=== PATIENT | male | born 1930 | race Caucasian/White ===

== ENCOUNTER 2016-08-17 21:19 | Inpatient (IN) | payer MEDICARE ==
[2016-08-17] MEDS ORDERED: Sodium Chloride 0.9% 1,000 ML IV SCH (22:15)
[2016-08-17] MEDS ORDERED: Insulin Aspart 100 Units/ML 3 ML Pen SUBCUT ONE (23:17)
--- NOTE | 2016-08-17 23:26 | EDM.PDOC ---
ED HPI GENERAL MEDICAL PROBLEM - General Chief Complaint: General Stated Complaint: FELL Time Seen by Provider: 08/17/16 21:50 Source of Information: Reports: Patient, Family History Limitations: Reports: No Limitations - History of Present Illness INITIAL COMMENTS - FREE TEXT/NARRATIVE: History of present illness: [This 86-year-old male presented to the emergency room by ambulance after the implant had been called because he had sat down on a step to tie shoe and then couldn't get up because he was too weak. His states that he has been getting weaker over the last 2-3 days and more winded and has developed a hacking cough. He does have a history of coronary disease and had triple vessel bypass but has not been having any chest pain with this just shortness of breath especially with activity. He developed a low-grade fever. It sounds like dilated his day is to drink one beer per day.] Review of systems: As per history of present illness and below otherwise all systems reviewed and negative. Past medical history: As per history of present illness and as reviewed below otherwise noncontributory. Surgical history: As per history of present illness and as reviewed below otherwise noncontributory. Social history: No reported history of drug or alcohol abuse. Family history: As per history of present illness and as reviewed below otherwise noncontributory. Physical exam: HEENT: Atraumatic, normocephalic, pupils reactive, negative for conjunctival pallor or scleral icterus, mucous membranes moist, throat clear, neck supple, nontender, trachea midline. Lungs: He has diminished breath sounds throughout and a few crackles in left base Heart: S1S2, regular, negative for clicks, rubs, or JVD. Abdomen: Soft, nondistended, nontender. Negative for masses or hepatosplenomegaly. Negative for costovertebral tenderness. Pelvis: Stable nontender. Genitourinary: Deferred. Rectal: Deferred. Extremities: Atraumatic, negative for cords or calf pain. Neurovascular unremarkable. Neuro: Awake, alert, oriented. Cranial nerves II through XII unremarkable. Cerebellum unremarkable. Motor and sensory unremarkable throughout. Exam nonfocal. 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 His states that he takes a nitroglycerin every day when he goes for a walk. He is pain free at this time] Therapeutics: [] Impression: [Pneumonia Coronary artery disease Diabetes mellitus with poor control at this time] Plan: [Patient will be admitted. Fariha will be seeing the patient shortly.] Definitive disposition and diagnosis as appropriate pending reevaluation and review of above. - Related Data Allergies Allergy/AdvReac Type Severity Reaction Status Date / Time No Known Allergies Allergy Verified 08/17/16 21:44 Home Meds: Home Meds Aspirin [Adult Low Dose Aspirin EC] 81 mg PO DAILY 08/29/13 [History] Carvedilol [Coreg] 3.125 mg PO BID 08/29/13 [History] Gluc HCl/Csa/Suly Hy/Hyalur Ac [Glucosamine Chondroitin] 1 each PO DAILY [History] Insulin Aspart [NovoLOG] 0 - 4 unit SQ ASDIRECTED 08/29/13 [History] Insulin Glarg,Human.Rec.Analog [Lantus] 10 unit SQ BEDTIME 08/29/13 [History] Isosorbide Mononitrate [Imdur] 120 mg PO DAILY 08/29/13 [History] Multivitamin [Multivitamins] 1 tab PO DAILY 08/29/13 [History] Tamsulosin [Tamsulosin 24 Hr] 0.4 mg PO DAILY 08/29/13 [History] Tiotropium [Spiriva HandiHaler] 1 cap INH DAILY 08/29/13 [History] cycloSPORINE [Restasis] 1 each OP ASDIRECTED 08/29/13 [History] Nitroglycerin [Nitrostat] 0.4 mg SL ASDIRECTED 08/17/16 [History] Ranolazine [Ranexa] 500 mg PO BID 08/17/16 [History] Rosuvastatin Calcium 5 mg PO DAILY 08/17/16 [History] Ubidecarenone [Co Q10] 100 mg PO BID 08/17/16 [History] Past Medical History HEENT History: Reports: Hard of Hearing, Impaired Vision, Other (See Below) Other HEENT History: Wears hearing aid Cardiovascular History: Reports: Bypass, High Cholesterol, Hypertension Respiratory History: Reports: COPD Genitourinary History: Reports: BPH, Other (See Below) Other Genitourinary History: Taked Flomax Psychiatric History: Reports: Dementia Endocrine/Metabolic History: Reports: Diabetes, Type II - Infectious Disease History Infectious Disease History: Reports: Chicken Pox - Past Surgical History HEENT Surgical History: Reports: Adenoidectomy, Laser Surgery, Tonsillectomy Cardiovascular Surgical History: Reports: Carotid Endarterectomy, Coronary Artery Bypass Respiratory Surgical History: Reports: Thoracotomy Musculoskeletal Surgical History: Reports: Shoulder Surgery Social & Family History - Tobacco Use Smoking Status *Q: Former Smoker Used Tobacco, but Quit: Yes Month Tobacco Last Used: 1951 - Caffeine Use Caffeine Use: Reports: Coffee - Recreational Drug Use Recreational Drug Use: No ED ROS GENERAL - Review of Systems Review Of Systems: ROS reveals no pertinent complaints other than HPI. ED EXAM, GENERAL - Physical Exam Exam: See Below Course - Vital Signs Last Recorded V/S: Last Vital Signs Temp 37.8 C 08/17/16 21:39 Pulse 70 08/17/16 21:39 Resp 18 08/17/16 21:39 BP 149/70 H 08/17/16 21:39 Pulse Ox 91 L 08/17/16 21:39 - Orders/Labs/Meds Orders: Active Orders 24 hr Category Date Time Status EKG Documentation Completion [RC] ASDIRECTED Care 08/17/16 22:00 Active Chest 2V [CR] Stat Exams 08/17/16 21:58 Taken Head wo Cont [CT] Stat Exams 08/17/16 21:58 Taken CULTURE BLOOD [BC] Stat Lab 08/17/16 21:59 Received CULTURE BLOOD [BC] Stat Lab 08/17/16 21:59 Received INFLUENZA A+B AG SCREEN [RM] Stat Lab 08/17/16 21:59 Uncollected UA W/MICROSCOPIC [URIN] Stat Lab 08/17/16 21:58 Uncollected Sodium Chloride 0.9% [Normal Saline] 1,000 ml Med 08/17/16 22:15 Active IV ASDIRECTED EKG 12 Lead [EK] Stat Ther 08/17/16 21:58 Ordered Medication Orders Sodium Chloride (Normal Saline) 1,000 mls @ 300 mls/hr IV ASDIRECTED PAULA Stop: 08/21/16 22:02 Last Admin: 08/17/16 22:38 Dose: 300 mls/hr Labs: Laboratory Tests 08/17/16 08/17/16 08/17/16 Range/Units 21:59 21:59 21:59 WBC 14.3 H (4.5-11.0) K/uL RBC 3.48 L (4.30-5.90) M/uL Hgb 11.3 L (12.0-15.0) g/dL Hct 32.9 L (40.0-54.0) % MCV 95 (80-98) fL MCH 33 H (27-31) pg MCHC 34 (32-36) % Plt Count 240 (150-400) K/uL Neut % (Auto) 86 H (36-66) % Lymph % (Auto) 5 L (24-44) % [place] % (Auto) 8 H (2-6) % Eos % (Auto) 1 L (2-4) % Baso % (Auto) 1 (0-1) % ABG Hemoglobin 11.4 L (13.5-18.0) g/dL ABG Oxyhemoglobin 65.0 % ABG Carboxyhemoglobin 1.7 H (0.0-1.6) % ABG Methemoglobin 0.7 % VBG pH 7.384 (7.350-7.450) VBG pCO2 35.2 mm/Hg VBG pO2 36.8 mm/Hg VBG HCO3 20.6 mmol/L VBG Total CO2 19.0 mmol/L VBG O2 Saturation 66.6 VBG O2 Content 10.4 %vol VBG Base Excess -3.4 mm/L O2 Delivery Device Room air Sodium 131 L (140-148) mmol/L Potassium 4.7 (3.6-5.2) mmol/L Chloride 98 L (100-108) mmol/L Carbon Dioxide 24 (21-32) mmol/L Anion Gap 13.7 (5.0-14.0) mmol/L BUN 35 H (7-18) mg/dL Creatinine 1.5 H (0.8-1.3) mg/dL Est Cr Clr Drug Dosing 38.19 mL/min Estimated GFR (MDRD) 44 L (>60) Glucose 459 H* (74-106) mg/dL Lactic Acid (0.4-2.0) mmol/L Calcium 7.5 L (8.5-10.1) mg/dL Total Bilirubin 0.6 (0.2-1.0) mg/dL AST 22 (15-37) U/L ALT 16 (12-78) U/L Alkaline Phosphatase 109 (46-116) U/L Troponin I 0.624 H* (0.000-0.056) ng/mL [id number] Pept 1094 H (5-450) pg/mL Total Protein 7.0 (6.4-8.2) g/dL Albumin 2.7 L (3.4-5.0) g/dL Globulin 4.3 H (2.3-3.5) g/dL Albumin/Globulin Ratio 0.6 L (1.2-2.2) 08/17/16 Range/Units 21:59 WBC (4.5-11.0) K/uL RBC (4.30-5.90) M/uL Hgb (12.0-15.0) g/dL Hct (40.0-54.0) % MCV (80-98) fL MCH (27-31) pg MCHC (32-36) % Plt Count (150-400) K/uL Neut % (Auto) (36-66) % Lymph % (Auto) (24-44) % [place] % (Auto) (2-6) % Eos % (Auto) (2-4) % Baso % (Auto) (0-1) % ABG Hemoglobin (13.5-18.0) g/dL ABG Oxyhemoglobin % ABG Carboxyhemoglobin (0.0-1.6) % ABG Methemoglobin % VBG pH (7.350-7.450) VBG pCO2 mm/Hg VBG pO2 mm/Hg VBG HCO3 mmol/L VBG Total CO2 mmol/L VBG O2 Saturation VBG O2 Content %vol VBG Base Excess mm/L O2 Delivery Device Sodium (140-148) mmol/L Potassium (3.6-5.2) mmol/L Chloride (100-108) mmol/L Carbon Dioxide (21-32) mmol/L Anion Gap (5.0-14.0) mmol/L BUN (7-18) mg/dL Creatinine (0.8-1.3) mg/dL Est Cr Clr Drug Dosing mL/min Estimated GFR (MDRD) (>60) Glucose (74-106) mg/dL Lactic Acid 1.6 (0.4-2.0) mmol/L Calcium (8.5-10.1) mg/dL Total Bilirubin (0.2-1.0) mg/dL AST (15-37) U/L ALT (12-78) U/L Alkaline Phosphatase (46-116) U/L Troponin I (0.000-0.056) ng/mL [id number] Pept (5-450) pg/mL Total Protein (6.4-8.2) g/dL Albumin (3.4-5.0) g/dL Globulin (2.3-3.5) g/dL Albumin/Globulin Ratio (1.2-2.2) Meds: Medications Generic Name Dose Route Start Last Admin Trade Name Freq PRN Reason Stop Dose Admin Sodium Chloride 1,000 mls @ 300 mls/hr 08/17/16 22:15 08/17/16 22:38 Normal Saline IV 08/21/16 22:02 300 mls/hr ASDIRECTED PAULA Administration Discontinued Medications Generic Name Dose Route Start Last Admin Trade Name Freq PRN Reason Stop Dose Admin Insulin Aspart 10 unit 08/17/16 23:17 Novolog SUBCUT 08/17/16 23:18 ONETIME ONE Departure - Departure Time of Disposition: 23:26 Disposition: Admitted As Inpatient 67 Condition: fair Clinical Impression: Pneumonia Qualifiers: Pneumonia type: due to unspecified organism Laterality: bilateral Lung location : unspecified part of lung Qualified Code(s): J18.9 - Pneumonia, unspecified organism - Discharge Information Forms: ED Department Discharge - My Orders Last 24 Hours: My Active Orders 08/17/16 21:58 Chest 2V [CR] Stat Head wo Cont [CT] Stat UA W/MICROSCOPIC [URIN] Stat EKG 12 Lead [EK] Stat 08/17/16 21:59 CULTURE BLOOD [BC] Stat CULTURE BLOOD [BC] Stat INFLUENZA A+B AG SCREEN [RM] Stat 08/17/16 22:00 EKG Documentation Completion [RC] ASDIRECTED 08/17/16 22:15 Sodium Chloride 0.9% [Normal Saline] 1,000 ml IV ASDIRECTED - Assessment/Plan Last 24 Hours: My Active Orders 08/17/16 21:58 Chest 2V [CR] Stat Head wo Cont [CT] Stat UA W/MICROSCOPIC [URIN] Stat EKG 12 Lead [EK] Stat 08/17/16 21:59 CULTURE BLOOD [BC] Stat CULTURE BLOOD [BC] Stat INFLUENZA A+B AG SCREEN [RM] Stat 08/17/16 22:00 EKG Documentation Completion [RC] ASDIRECTED 08/17/16 22:15 Sodium Chloride 0.9% [Normal Saline] 1,000 ml IV ASDIRECTED
--- NOTE | 2016-08-18 00:42 | PCM.HP ---
H&P History of Present Illness - General Date of Service: 08/17/16 Admit Problem/Dx: Admission Diagnosis/Problem Admission Diagnosis/Problem Pneumonia Source of Information: Patient, Family ( Marilee of 64 years.) History Limitations: Reports: Altered Mental Status (dementia) - History of Present Illness Initial Comments - Free Text/Narative: - History of Present Illness INITIAL COMMENTS - FREE TEXT/NARRATIVE: History of present illness: [This 86-year-old male presented to the emergency room by ambulance after called because he had sat down on a step to tie shoe and then couldn't get up because he was too weak. His states that he has been getting weaker over the last 2-3 days and more winded and has developed a hacking cough. He does have a history of coronary disease and had triple vessel bypass but has not been having any chest pain with this just shortness of breath especially with activity. He developed a low-grade fever. It sounds like decreased his beer intake to drink one beer per day.] Review of systems: As per history of present illness and below otherwise all systems reviewed and negative. Past medical history: As per history of present illness and as reviewed below otherwise noncontributory. Surgical history: As per history of present illness and as reviewed below otherwise noncontributory. Social history: No reported history of drug or alcohol abuse. Family history: As per history of present illness and as reviewed below otherwise noncontributory. 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 His states that he takes a nitroglycerin every day when he goes for a walk. He is pain free at this time] Therapeutics: [] Impression: [Pneumonia Coronary artery disease Diabetes mellitus with poor control at this time Dementia Plan: [Patient will be admitted. Onset of Symptoms: Reports: Gradual Duration of Symptoms: Reports: Day(s):, Getting Worse (shortness of breath, weakness, decreased appetite) Location: Reports: Generalized Severity: Moderate Improves with: Reports: Rest Worsens with: Reports: Movement Associated Symptoms: Reports: Cough, Loss of Appetite, Malaise, Shortness of Breath, Weakness - Related Data Allergies/Adverse Reactions: Allergies Allergy/AdvReac Type Severity Reaction Status Date / Time No Known Allergies Allergy Verified 08/17/16 21:44 Home Medications: Home Meds Aspirin [Adult Low Dose Aspirin EC] 81 mg PO DAILY 08/29/13 [History] Carvedilol [Coreg] 3.125 mg PO BID 08/29/13 [History] Gluc HCl/Csa/Suly Hy/Hyalur Ac [Glucosamine Chondroitin] 1 each PO DAILY [History] Insulin Aspart [NovoLOG] 0 - 4 unit SQ ASDIRECTED 08/29/13 [History] Insulin Glarg,Human.Rec.Analog [Lantus] 10 unit SQ BEDTIME 08/29/13 [History] Isosorbide Mononitrate [Imdur] 120 mg PO DAILY 08/29/13 [History] Multivitamin [Multivitamins] 1 tab PO DAILY 08/29/13 [History] Tamsulosin [Tamsulosin 24 Hr] 0.4 mg PO DAILY 08/29/13 [History] Tiotropium [Spiriva HandiHaler] 1 cap INH DAILY 08/29/13 [History] cycloSPORINE [Restasis] 1 each OP ASDIRECTED 08/29/13 [History] Nitroglycerin [Nitrostat] 0.4 mg SL ASDIRECTED 08/17/16 [History] Ranolazine [Ranexa] 500 mg PO BID 08/17/16 [History] Rosuvastatin Calcium 5 mg PO DAILY 08/17/16 [History] Ubidecarenone [Co Q10] 100 mg PO BID 08/17/16 [History] Past Medical History HEENT History: Reports: Hard of Hearing, Impaired Vision, Other (See Below) Other HEENT History: Wears hearing aid Cardiovascular History: Reports: Bypass, High Cholesterol, Hypertension Respiratory History: Reports: COPD Genitourinary History: Reports: BPH, Other (See Below) Other Genitourinary History: Taked Flomax Psychiatric History: Reports: Dementia Endocrine/Metabolic History: Reports: Diabetes, Type II - Infectious Disease History Infectious Disease History: Reports: Chicken Pox - Past Surgical History HEENT Surgical History: Reports: Adenoidectomy, Laser Surgery, Tonsillectomy Cardiovascular Surgical History: Reports: Carotid Endarterectomy, Coronary Artery Bypass Respiratory Surgical History: Reports: Thoracotomy Musculoskeletal Surgical History: Reports: Shoulder Surgery Social & Family History - Tobacco Use Smoking Status *Q: Former Smoker Used Tobacco, but Quit: Yes Month Tobacco Last Used: 1951 - Caffeine Use Caffeine Use: Reports: Coffee - Recreational Drug Use Recreational Drug Use: No - Living Situation & Occupation Living situation: Reports: , with Family Occupation: Retired (lives with Marilee of 64 years, [place] in [place], Summer at [employer], have 2 adult children one lives in [facility] , one live in [place].) H&P Review of Systems - Review of Systems: Review Of Systems: See Below General: Reports: Malaise, Weakness, Fatigue, Decreased Appetite HEENT: Reports: No Symptoms Pulmonary: Reports: Shortness of Breath, Cough Cardiovascular: Reports: No Symptoms Gastrointestinal: Reports: No Symptoms Genitourinary: Reports: No Symptoms Musculoskeletal: Reports: No Symptoms Skin: Reports: Bruising Psychiatric: Reports: Other (dementia) Neurological: Reports: Pre-Existing Deficit, Weakness Hematologic/Lymphatic: Reports: No Symptoms Immunologic: Reports: No Symptoms Exam - Exam Exam: See Below - Vital Signs Vital Signs: Last Vital Signs Temp 37.8 C 08/17/16 21:39 Pulse 70 08/17/16 21:39 Resp 18 08/17/16 21:39 BP 149/70 H 08/17/16 21:39 Pulse Ox 91 L 08/17/16 21:39 Weight: 77.111 kg - Exam General: Alert, Oriented, Cooperative, Other (pleasant well tanned , talkative) HEENT: PERRLA, Conjunctiva Clear, EACs Clear, EOMI, Hearing Intact, Mucosa Moist & [place], Nares Patent, Normal Nasal Septum, Posterior Pharynx Clear, Pupils Equal, Pupils Reactive, TMs Clear Neck: Supple, Trachea Midline Lungs: Clear to Auscultation, Normal Respiratory Effort, Decreased Breath Sounds Cardiovascular: Regular Rate, Regular Rhythm, Normal S1, Normal S2, Other ( murmur present) Abdomen: Normal Bowel Sounds, Soft, Pelvis Stable, Distention (Male) Exam: Deferred Rectal (Males) Exam: Deferred Back Exam: Normal Inspection, Full Range of Motion Extremities: Normal Inspection, Normal Pulses Peripheral Pulses: 2+: Radial (L), Radial (R), Posterior Tibial (L), Posterior Tibial (R) Skin: Warm, Dry, Intact, Pet[place]ia Neurological: Reflexes Equal Bilateral, Strength Equal Bilateral, Normal Gait, Normal Speech, Normal Tone Neuro Extensive - Mental Status: Alert, Normal Mood/Affect, Memory Intact Neuro Extensive - Motor, Sensory, Reflexes: Normal Gait, Normal Reflexes Psychiatric: Alert, Normal Affect, Normal Mood - Patient Data Lab Results last 24 hrs: Laboratory Results - last 24 hr 08/17/16 08/17/16 08/17/16 Range/Units 21:59 21:59 21:59 WBC 14.3 H (4.5-11.0) K/uL RBC 3.48 L (4.30-5.90) M/uL Hgb 11.3 L (12.0-15.0) g/dL Hct 32.9 L (40.0-54.0) % MCV 95 (80-98) fL MCH 33 H (27-31) pg MCHC 34 (32-36) % Plt Count 240 (150-400) K/uL Neut % (Auto) 86 H (36-66) % Lymph % (Auto) 5 L (24-44) % [place] % (Auto) 8 H (2-6) % Eos % (Auto) 1 L (2-4) % Baso % (Auto) 1 (0-1) % ABG Hemoglobin 11.4 L (13.5-18.0) g/dL ABG Oxyhemoglobin 65.0 % ABG Carboxyhemoglobin 1.7 H (0.0-1.6) % ABG Methemoglobin 0.7 % VBG pH 7.384 (7.350-7.450) VBG pCO2 35.2 mm/Hg VBG pO2 36.8 mm/Hg VBG HCO3 20.6 mmol/L VBG Total CO2 19.0 mmol/L VBG O2 Saturation 66.6 VBG O2 Content 10.4 %vol VBG Base Excess -3.4 mm/L O2 Delivery Device Room air Sodium 131 L (140-148) mmol/L Potassium 4.7 (3.6-5.2) mmol/L Chloride 98 L (100-108) mmol/L Carbon Dioxide 24 (21-32) mmol/L Anion Gap 13.7 (5.0-14.0) mmol/L BUN 35 H (7-18) mg/dL Creatinine 1.5 H (0.8-1.3) mg/dL Est Cr Clr Drug Dosing 38.19 mL/min Estimated GFR (MDRD) 44 L (>60) Glucose 459 H* (74-106) mg/dL Lactic Acid (0.4-2.0) mmol/L Calcium 7.5 L (8.5-10.1) mg/dL Total Bilirubin 0.6 (0.2-1.0) mg/dL AST 22 (15-37) U/L ALT 16 (12-78) U/L Alkaline Phosphatase 109 (46-116) U/L Troponin I 0.624 H* (0.000-0.056) ng/mL Igj-U-Ezicgojizwd Pept 1094 H (5-450) pg/mL Total Protein 7.0 (6.4-8.2) g/dL Albumin 2.7 L (3.4-5.0) g/dL Globulin 4.3 H (2.3-3.5) g/dL Albumin/Globulin Ratio 0.6 L (1.2-2.2) / Range/Units 21:59 WBC (4.5-11.0) K/uL RBC (4.30-5.90) M/uL Hgb (12.0-15.0) g/dL Hct (40.0-54.0) % MCV (80-98) fL MCH (27-31) pg MCHC (32-36) % Plt Count (150-400) K/uL Neut % (Auto) (36-66) % Lymph % (Auto) (24-44) % [place] % (Auto) (2-6) % Eos % (Auto) (2-4) % Baso % (Auto) (0-1) % ABG Hemoglobin (13.5-18.0) g/dL ABG Oxyhemoglobin % ABG Carboxyhemoglobin (0.0-1.6) % ABG Methemoglobin % VBG pH (7.350-7.450) VBG pCO2 mm/Hg VBG pO2 mm/Hg VBG HCO3 mmol/L VBG Total CO2 mmol/L VBG O2 Saturation VBG O2 Content %vol VBG Base Excess mm/L O2 Delivery Device Sodium (140-148) mmol/L Potassium (3.6-5.2) mmol/L Chloride (100-108) mmol/L Carbon Dioxide (21-32) mmol/L Anion Gap (5.0-14.0) mmol/L BUN (7-18) mg/dL Creatinine (0.8-1.3) mg/dL Est Cr Clr Drug Dosing mL/min Estimated GFR (MDRD) (>60) Glucose (74-106) mg/dL Lactic Acid 1.6 (0.4-2.0) mmol/L Calcium (8.5-10.1) mg/dL Total Bilirubin (0.2-1.0) mg/dL AST (15-37) U/L ALT (12-78) U/L Alkaline Phosphatase (46-116) U/L Troponin I (0.000-0.056) ng/mL Lhf-R-Dlveeuwhkbd Pept (5-450) pg/mL Total Protein (6.4-8.2) g/dL Albumin (3.4-5.0) g/dL Globulin (2.3-3.5) g/dL Albumin/Globulin Ratio (1.2-2.2) Result Diagrams: 08/17/16 21:59 08/17/16 21:59 *Q Meaningful Use (ADM) - VTE *Q VTE Criteria *Q: - Stroke *Q Stroke Criteria *Q: - AMI *Q AMI Criteria *Q: - Problem List (1) Pneumonia SNOMED Code(s): 441459074 ICD Code: J18.9 - PNEUMONIA, UNSPECIFIED ORGANISM Status: Acute Priority : High Current Visit: Yes Qualifiers: Pneumonia type: due to unspecified organism Laterality: bilateral Lung location: unspecified part of lung Qualified Code(s): J18.9 - Pneumonia, unspecified organism (2) Diabetes type 2, uncontrolled SNOMED Code(s): 04731363, 874879917 ICD Code: E11.65 - TYPE 2 DIABETES MELLITUS WITH HYPERGLYCEMIA Status: Acute Priority: High Current Visit: Yes Qualifiers: Diabetes mellitus complication status: without complication Diabetes mellitus penitentiary insulin use: with penitentiary use Qualified Code(s): E11.65 - Type 2 diabetes mellitus with hyperglycemia; Z79.4 - USP (current) use of insulin (3) Dementia SNOMED Code(s): 68196013 ICD Code: F03.90 - UNSPECIFIED DEMENTIA WITHOUT BEHAVIORAL DISTURBANCE Status: Acute Priority: High Current Visit: Yes Qualifiers: Dementia type: Alzheimer's disease Alzheimer's disease onset: unspecified onset Dementia behavioral disturbance: without behavioral disturbance Qualified Code(s): G30.9 - Alzheimer's disease, unspecified; F02.80 - Dementia in other diseases classified elsewhere without behavioral disturbance (4) Congestive heart failure (CHF) SNOMED Code(s): 54169367 ICD Code: I50.9 - HEART FAILURE, UNSPECIFIED Status: Acute Priority: Medium Current Visit: Yes Qualifiers: Congestive heart failure type: unspecified congestive heart failure type Congestive heart failure chronicity: acute Qualified Code(s): I50.9 - Heart failure, unspecified (5) Elevated troponin I level SNOMED Code(s): 770310023 ICD Code: R74.8 - ABNORMAL LEVELS OF OTHER SERUM ENZYMES Status: Acute Priority: Medium Current Visit: Yes Problem List Initiated/Reviewed/Updated: Yes Orders Last 24hrs: Active Orders 24 hr Category Date Time Status Patient Status Manage Transfer [TRANSFER] Routine ADT 08/18/16 00:23 Ordered Cardiac Monitoring [RC] .As Directed Care 08/18/16 00:23 Ordered EKG Documentation Completion [RC] ASDIRECTED Care 08/17/16 22:00 Active Chest 2V [CR] Stat Exams 08/17/16 21:58 Taken Head wo Cont [CT] Stat Exams 08/17/16 21:58 Taken CULTURE BLOOD [BC] Stat Lab 08/17/16 21:59 Received CULTURE BLOOD [BC] Stat Lab 08/17/16 21:59 Received INFLUENZA A+B AG SCREEN [RM] Stat Lab 08/17/16 21:59 Ordered UA W/MICROSCOPIC [URIN] Stat Lab 08/17/16 21:58 Ordered Sodium Chloride 0.9% [Normal Saline] 1,000 ml Med 08/17/16 22:15 Active IV ASDIRECTED Resuscitation Status Routine Resus Stat 08/18/16 00:25 Ordered EKG 12 Lead [EK] Stat Ther 08/17/16 21:58 Ordered Medication Orders Sodium Chloride (Normal Saline) 1,000 mls @ 300 mls/hr IV ASDIRECTED PAULA Stop: 08/21/16 22:02 Last Infusion: 08/18/16 00:05 Dose: 75 mls/hr Admin: 08/17/16 22:38 Dose: 300 mls/hr Assessment/Plan Comment:: ASSESSMENT / PLAN -This is a 86 year old male present to ER via EMS with complaints of shortness of breath and weakness. s INITIAL COMMENTS - FREE TEXT/NARRATIVE: History of present illness: [This 86-year-old male presented to the emergency room by ambulance after called because he had sat down on a step to tie shoe and then couldn't get up because he was too weak. His states that he has been getting weaker over the last 2-3 days and more winded and has developed a hacking cough. He does have a history of coronary disease and had triple vessel bypass but has not been having any chest pain with this just shortness of breath especially with activity. He developed a low-grade fever. It sounds like decreased his beer intake to drink one beer per day.] Review of systems: As per history of present illness and below otherwise all systems reviewed and negative. Past medical history: As per history of present illness and as reviewed below otherwise noncontributory. Surgical history: As per history of present illness and as reviewed below otherwise noncontributory. Social history: No reported history of drug or alcohol abuse. Family history: As per history of present illness and as reviewed below otherwise noncontributory. 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 His states that he takes a nitroglycerin every day when he goes for a walk. He is pain free at this time] [] Impression: [Pneumonia Coronary artery disease Diabetes mellitus with poor control at this time Dementia chf Plan: [Patient will be admitted. Pneumonia -IV Levaquin 500mg every 24 hours -IV Rocephin 1 gram every 24 hours -blood cultures pending -am labs; cbc Coronary artery disease, elevated Troponin -Troponin cardiac enzyme at 4 AM and 10am -orders for nitroglycerin 0.4 sublingual when necessary chest pain -Telemetry -Oxygen per nasal cannula prn -IV fluids for rehydration NS at 75 mL per hour -Advise to notify nurses of any chest pain or other symptoms -And a.m. labs: CBC, BMP, Diabetes type 2 -Lantus -sliding scale low dose insulin coverage Dementia for the past 3 years -monitor for confusion or agitation with admission to hospital CHF -monitor for any signs of crackles Maintenance issues -Orders home meds: -Nutrition: Regular diet -Patel catheter not indicated at this time -DVT: scd -PPI; Protonix 40mg daily -referral to PT and OT for discharge planning -referral to Spiritual care CODE STATUS:DNR/DNI Admission status: Admit to [address] [place] [address] justification. This patient will be admitted for inpatient services and is medically appropriate meeting medical necessity for inpatient admission as outlined in my documentation. I reasonably expect the patient will require inpatient services that span. Time over 2 midnights. I reasonably expect this patient to be discharged or transferred within 96 hours after admission to the critical access hospital Disposition; home with Marilee Primary care provider: Dr. Carrion
[2016-08-18] MEDS ORDERED: LORazepam 2 MG/ML MDV IV PRN (01:02)
[2016-08-18] MEDS ORDERED: Levofloxacin/Dextrose 5%-Water 500 MG in Premix Bag 1 BAG IV SCH (01:02)
[2016-08-18] MEDS ORDERED: Ondansetron 4 MG Tab.DIS PO PRN (01:02)
[2016-08-18] MEDS ORDERED: Acetaminophen 325 MG Tab PO PRN (01:02)
[2016-08-18] MEDS ORDERED: cefTRIAXone 1 GM in Sodium Chloride 0.9% 50 ML IV SCH ×2 (01:02→22:00)
[2016-08-18] MEDS ORDERED: Ondansetron 4 MG/2 ML SDV IV PRN (01:02)
[2016-08-18] MEDS ORDERED: Insulin Aspart 100 Units/ML 3 ML Pen SUBCUT SCH (01:02)
[2016-08-18] MEDS ORDERED: Docusate Sodium 100 MG Cap PO PRN (01:02)
[2016-08-18] MEDS ORDERED: Sodium Chloride 0.9% 1,000 ML IV SCH (01:02)
[2016-08-18] MEDS ORDERED: Nitroglycerin 0.4 MG Tab.SL SL PRN (01:02)
[2016-08-18] MEDS ORDERED: Albuterol 0.083% 2.5 MG/3 ML Neb Soln NEB PRN (01:02)
[2016-08-18] MEDS ORDERED: Bisacodyl 5 MG Tab PO PRN (01:02)
[2016-08-18] MEDS: Carvedilol 3.125 MG Tab PO SCH ×2 (01:26→10:14)
[2016-08-18] MEDS ORDERED: Levofloxacin/Dextrose 5%-Water 500 MG in Premix Bag 1 BAG IV ONE (01:30)
[2016-08-18] MEDS: Codeine/guaiFENesin 100mg-10 MG/5 ML Syrup 10 ML Cup PO PRN ×2 (01:37→11:26)
[2016-08-18] MEDS ORDERED: Insulin Detemir 100 Units/ML 3 ML Pen SUBCUT SCH ×2 (01:45→21:00)
[2016-08-18] MEDS: RANOLAZINE 500 MG PO SCH ×2 (02:43→11:52)
[2016-08-18] MEDS ORDERED: Albuterol/Ipratropium 3.0-0.5 MG/3 ML Neb Soln NEB SCH ×2 (06:00→11:00)
[2016-08-18] MEDS ORDERED: Pantoprazole 40 MG Tab.CR PO SCH (07:30)
[2016-08-18 07:42] VITALS: BP 144/73
--- NOTE | 2016-08-18 08:24 | CR ---
Chest 2V HISTORY: cough, fever COMPARISON: 09/12/2012 FINDINGS: There are patchy infiltrates in the upper lobes bilaterally, greater on the right. Heart s ize is within normal limits. Atherosclerotic calcification is seen in the aortic arch. There is no v ascular redistribution or pleural fluid. Old median sternotomy changes are noted. IMPRESSION: Patchy infiltrates bilaterally, greatest in the right upper lobe. Findings may correlate with the given clinical history of pneumonia. Follow-up chest films are recommended after treatment to document resolution.
[2016-08-18] MEDS ORDERED: Tamsulosin 0.4 MG Cap.ER PO SCH (09:00)
[2016-08-18] MEDS ORDERED: Pantoprazole 40 MG Vial IVPUSH SCH (09:00)
[2016-08-18] MEDS ORDERED: Rosuvastatin 10 MG Tab PO SCH (09:00)
[2016-08-18] MEDS ORDERED: Isosorbide Mononitrate 30 MG Tab.ER PO SCH (09:00)
[2016-08-18] MEDS ORDERED: Aspirin 81 MG Tab.EC PO SCH (09:00)
[2016-08-18] MEDS ORDERED: Multivitamins with Iron/Calcium/Folic Acid/Minerals Tab PO SCH (09:00)
[2016-08-18] MEDS ORDERED: Heparin Sodium/D5W 25,000 UNITS/500 ML BAG IV SCH (11:00)
[2016-08-18] MEDS ORDERED: Heparin Sodium 5,000 Units/ML Vial IVPUSH STA (11:14)
[2016-08-18] MEDS ORDERED: Aspirin 81 MG Tab.Chew PO SCH (11:15)
--- NOTE | 2016-08-18 11:52 | PCM.DCSUM1 ---
Discharge Summary - Hospital Course Brief History: This patient is an 86-year-old gentleman who was admitted through the emergency department with progressive weakness, fever, and leukocytosis thought secondary to pneumonia and urinary tract infection. - Discharge Data Discharge Date: 08/18/16 Discharge Disposition: DC/Tfer to [facility] 02 Condition: Stable - Discharge Diagnosis/Problem(s) (1) Cystitis SNOMED Code(s): 63136418 ICD Code: N30.90 - CYSTITIS, UNSPECIFIED WITHOUT HEMATURIA Status: Acute Current Visit: Yes (2) Non-ST elevated myocardial infarction SNOMED Code(s): 033070418 ICD Code: I21.4 - NON-ST ELEVATION (NSTEMI) MYOCARDIAL INFARCTION Status: Acute Current Visit: Yes (3) Pneumonia SNOMED Code(s): 921331189 ICD Code: J18.9 - PNEUMONIA, UNSPECIFIED ORGANISM Status: Acute Priority : High Current Visit: Yes Qualifiers: Pneumonia type: due to unspecified organism Laterality: bilateral Lung location: unspecified part of lung Qualified Code(s): J18.9 - Pneumonia, unspecified organism (4) Diabetes type 2, uncontrolled SNOMED Code(s): 44697245, 009011145 ICD Code: E11.65 - TYPE 2 DIABETES MELLITUS WITH HYPERGLYCEMIA Status: Acute Priority: High Current Visit: Yes Qualifiers: Diabetes mellitus complication status: without complication Diabetes mellitus senior care insulin use: with termite exterminator helper use Qualified Code(s): E11.65 - Type 2 diabetes mellitus with hyperglycemia; Z79.4 - prison (current) use of insulin (5) Dementia SNOMED Code(s): 38857161 ICD Code: F03.90 - UNSPECIFIED DEMENTIA WITHOUT BEHAVIORAL DISTURBANCE Status: Acute Priority: High Current Visit: Yes Qualifiers: Dementia type: Alzheimer's disease Alzheimer's disease onset: unspecified onset Dementia behavioral disturbance: without behavioral disturbance Qualified Code(s): G30.9 - Alzheimer's disease, unspecified; F02.80 - Dementia in other diseases classified elsewhere without behavioral disturbance - Patient Summary/Data Consults: Consultations 08/18/16 01:02 OT Evaluation and Treatment [CONS] Routine Please Evaluate and Treat. OT Reason for Consult: Discharge Planning This query below is only for informational purposes and is not editable. PT Evaluation and Treatment [CONS] Routine Please Evaluate and Treat. PT Reason for Consult: Ambulation This query below is only for informational purposes and is not editable. 08/18/16 01:59 Spiritual Care Follow Up [CONS] Routine Spiritual Resources: Other (See Spec Instr) Spiritual/Emotional Support: Prayer Request Hospital Course: This patient is an 86-year-old gentleman who developed symptoms of progressive weakness. On the evening of admission he and his are walking into the when he became very fatigued and needed to sit down the steps at rest. He was unable to get up off of the steps because of weakness and struggled for about an hour and half or so. His called the ambulance and he was brought into the emergency department for further evaluation. Chest x-ray showed bilateral patchy infiltrates in his white blood cell count was elevated. He was hemodynamically stable with adequate oxygenation. He was felt to have probable bilateral pneumonia causing current symptoms. Also noted on admission was evidence of urinary tract infection. His troponin was found to be elevated at 0.62, with a GFR of 40 and recent stress of probable infection it was felt to represent demand ischemia. Blood cultures were obtained and he was started on IV antibiotic therapy with levofloxacin. Followup troponin the next morning was elevated at 6.5, repeated a few hours later was up to 8.4. EKG was repeated and showed no acute ST segment changes, he was felt to have experienced a non-ST segment elevation myocardial infarction. He does have a known history of coronary artery disease status post coronary artery bypass surgery approximately 4 years ago. Echocardiogram obtained last fall showed preserved left ventricular function. Because of the non-STEMI he will be referred to tertiary care Center for further subspecialty evaluation and management. He has been started on IV heparin as well as 325 mg of aspirin daily. Transfer will be via [facility] ambulance. - Patient Instructions Diet: Usual Diet as Tolerated Activity: As Tolerated Other/Special Instructions: He will be transferred to [facility] in [facility] via [facility] ambulance. - Discharge Plan Home Medications: Home Meds Aspirin [Adult Low Dose Aspirin EC] 81 mg PO DAILY 08/29/13 [History] Carvedilol [Coreg] 3.125 mg PO BID 08/29/13 [History] Gluc HCl/Csa/Suly Hy/Hyalur Ac [Glucosamine Chondroitin] 1 each PO DAILY [History] Insulin Aspart [NovoLOG] 0 - 4 unit SQ ASDIRECTED 08/29/13 [History] Insulin Glarg,Human.Rec.Analog [Lantus] 10 unit SQ BEDTIME 08/29/13 [History] Isosorbide Mononitrate [Imdur] 120 mg PO DAILY 08/29/13 [History] Multivitamin [Multivitamins] 1 tab PO DAILY 08/29/13 [History] Tamsulosin [Flomax] 0.4 mg PO DAILY 08/29/13 [History] Tiotropium [Spiriva HandiHaler] 1 cap INH DAILY 08/29/13 [History] cycloSPORINE [Restasis] 1 each OP ASDIRECTED 08/29/13 [History] Nitroglycerin [Nitrostat] 0.4 mg SL ASDIRECTED 08/17/16 [History] Ranolazine [Ranexa] 500 mg PO BID 08/17/16 [History] Rosuvastatin Calcium 5 mg PO DAILY 08/17/16 [History] Ubidecarenone [Co Q10] 100 mg PO BID 08/17/16 [History] Aspirin [Ecotrin] 325 mg PO DAILY tab.ec 08/18/16 [Rx] Levofloxacin/Dextrose 5%-Water [Levaquin in D5W 750 MG/150 ML] 750 mg IV Q24H bag 08/18/16 [Rx] Referrals: Jh Carrion MD [Primary Care Provider] - - Patient Data Vitals - Most Recent: Last Vital Signs Temp 97.1 F 08/18/16 07:39 Pulse 61 08/18/16 10:44 Resp 18 08/18/16 07:39 BP 144/73 H 08/18/16 10:15 Pulse Ox 93 L 08/18/16 10:44 Weight - Most Recent: 171 lb 7.997 oz I&O - Last 24 hours: Intake & Output 08/17/16 08/18/16 08/18/16 22:59 06:59 14:59 Intake Total 880 Output Total 500 Balance 880 -500 Lab Results - Last 24 hrs: Laboratory Results - last 24 hr 08/18/16 08/18/16 08/18/16 Range/Units 04:00 04:00 04:10 WBC 15.0 H (4.5-11.0) K/uL RBC 3.37 L (4.30-5.90) M/uL Hgb 10.7 L (12.0-15.0) g/dL Hct 31.9 L (40.0-54.0) % MCV 95 (80-98) fL MCH 32 H (27-31) pg MCHC 34 (32-36) % Plt Count 243 (150-400) K/uL Neut % (Auto) 79 H (36-66) % Lymph % (Auto) 9 L (24-44) % Overton % (Auto) 10 H (2-6) % Eos % (Auto) 2 (2-4) % Baso % (Auto) 0 (0-1) % Sodium 136 L (140-148) mmol/L Potassium 3.8 (3.6-5.2) mmol/L Chloride 102 (100-108) mmol/L Carbon Dioxide 27 (21-32) mmol/L Anion Gap 10.8 (5.0-14.0) mmol/L BUN 29 H (7-18) mg/dL Creatinine 1.3 (0.8-1.3) mg/dL Est Cr Clr Drug Dosing 44.07 mL/min Estimated GFR (MDRD) 52 L (>60) Glucose 159 H (74-106) mg/dL Calcium 7.8 L (8.5-10.1) mg/dL Troponin I 6.458 H* (0.000-0.056) ng/mL 08/18/16 Range/Units 10:00 WBC (4.5-11.0) K/uL RBC (4.30-5.90) M/uL Hgb (12.0-15.0) g/dL Hct (40.0-54.0) % MCV (80-98) fL MCH (27-31) pg MCHC (32-36) % Plt Count (150-400) K/uL Neut % (Auto) (36-66) % Lymph % (Auto) (24-44) % Overton % (Auto) (2-6) % Eos % (Auto) (2-4) % Baso % (Auto) (0-1) % Sodium (140-148) mmol/L Potassium (3.6-5.2) mmol/L Chloride (100-108) mmol/L Carbon Dioxide (21-32) mmol/L Anion Gap (5.0-14.0) mmol/L BUN (7-18) mg/dL Creatinine (0.8-1.3) mg/dL Est Cr Clr Drug Dosing mL/min Estimated GFR (MDRD) (>60) Glucose (74-106) mg/dL Calcium (8.5-10.1) mg/dL Troponin I 8.453 H* (0.000-0.056) ng/mL Med Orders - Current: Current Medications Acetaminophen (Tylenol) 650 mg PO Q4H PRN PRN Reason: Pain (Mild 1-3)/fever Albuterol (Proventil Neb Soln) 2.5 mg NEB Q4H PRN PRN Reason: Shortness Of Breath/wheezing Albuterol/Ipratropium (Duoneb 3.0-0.5 Mg/3 Ml) 3 ml NEB QIDRT [facility] Last Admin: 08/18/16 10:44 Dose: 3 ml Aspirin (Halfprin) 81 mg PO DAILY [facility] Last Admin: 08/18/16 10:15 Dose: 81 mg Aspirin (Aspirin) 324 mg PO DAILY [facility] Last Admin: 08/18/16 11:19 Dose: 324 mg Bisacodyl (Dulcolax) 5 mg PO DAILY PRN PRN Reason: Constipation Carvedilol (Coreg) 3.125 mg PO BID [facility] Last Admin: 08/18/16 10:14 Dose: 3.125 mg Cyclosporine (Restasis) 1 each EYERT BID [facility] Docusate Sodium (Colace) 100 mg PO BID PRN PRN Reason: Constipation Guaifenesin/Codeine Phosphate (Robitussin Ac) 10 ml PO Q4H PRN PRN Reason: Cough Last Admin: 08/18/16 11:26 Dose: 10 ml Sodium Chloride (Normal Saline) 1,000 mls @ 75 mls/hr IV ASDIRECTED [facility] Last Admin: 08/18/16 08:49 Dose: 75 mls/hr Ceftriaxone Sodium 1 gm/ (Sodium Chloride) 50 mls @ 100 mls/hr IV Q24H [facility] Levofloxacin/Dextrose 750 mg/ (Premix) 150 mls @ 100 mls/hr IV Q24H [facility] Heparin Sodium/Dextrose (Heparin 25,000 Units In D5w 500 Ml) 25,000 units in 500 mls @ 0 mls/hr IV TITRATE PAULA; KVO PRN Reason: Protocol Last Admin: 08/18/16 11:24 Dose: 18.7 mls/hr, 18.7 mls/hr Insulin Aspart (Novolog) 0 unit SUBCUT ASDIRECTED [facility] PRN Reason: Protocol Insulin Detemir (Levemir) 10 unit SUBCUT BEDTIME [facility] Isosorbide Mononitrate (Imdur) 120 mg PO DAILY [facility] Last Admin: 08/18/16 10:15 Dose: 120 mg Lorazepam (Ativan) 0.5 mg IV Q6H PRN PRN Reason: Nausea/Vomiting Multivitamins/Minerals (Thera M Plus) 1 tab PO DAILY [facility] Last Admin: 08/18/16 10:16 Dose: 1 tab Nitroglycerin (Nitrostat) 0.4 mg SL ASDIRECTED PRN PRN Reason: CHEST PAIN Non-Formulary Medication (Ranolazine [Ranexa]) 500 mg PO BID [facility] Last Admin: 08/18/16 02:43 Dose: Not Given Ondansetron HCl (Zofran Odt) 4 mg PO Q6H PRN PRN Reason: Nausea able to take PO Ondansetron HCl (Zofran) 4 mg IV Q4H PRN PRN Reason: Nausea/Vomiting Pantoprazole Sodium (Protonix) 40 mg PO ACBREAKFAST [facility] Last Admin: 08/18/16 10:15 Dose: 40 mg Rosuvastatin Calcium (Crestor) 5 mg PO DAILY [facility] Last Admin: 08/18/16 10:14 Dose: 5 mg Tamsulosin HCl (Flomax) 0.4 mg PO DAILY [facility] Last Admin: 08/18/16 10:14 Dose: 0.4 mg Discontinued Medications Albuterol/Ipratropium (Duoneb 3.0-0.5 Mg/3 Ml) 3 ml NEB QID [facility] Last Admin: 08/18/16 05:46 Dose: 3 ml Heparin Sodium (Porcine) (Heparin Sodium) 4,500 units IVPUSH ONETIME [facility] Stop: 08/18/16 11:15 Last Admin: 08/18/16 11:21 Dose: 4,500 units Sodium Chloride (Normal Saline) 1,000 mls @ 300 mls/hr IV ASDIRECTED [facility] Stop: 08/21/16 22:02 Last Infusion: 08/18/16 00:05 Dose: 75 mls/hr Levofloxacin/Dextrose 500 mg/ (Premix) 100 mls @ 100 mls/hr IV Q24H [facility] Last Admin: 08/18/16 01:54 Dose: Not Given Ceftriaxone Sodium 1 gm/ (Sodium Chloride) 50 mls @ 100 mls/hr IV Q24H [facility] Last Admin: 08/18/16 02:39 Dose: 100 mls/hr Levofloxacin/Dextrose 500 mg/ (Premix) 100 mls @ 100 mls/hr IV NOW ONE Stop: 08/18/16 02:29 Last Admin: 08/18/16 01:26 Dose: 100 mls/hr Levofloxacin/Dextrose 250 mg/ (Premix) 50 mls @ 50 mls/hr IV Q24H [facility] Insulin Aspart (Novolog) 10 unit SUBCUT ONETIME ONE Stop: 08/17/16 23:18 Last Admin: 08/17/16 23:40 Dose: 10 units Insulin Detemir (Levemir) 10 unit SUBCUT BEDTIME [facility] Last Admin: 08/18/16 01:42 Dose: 10 units Pantoprazole Sodium (Protonix Iv) 40 mg IVPUSH DAILY [facility] *Q Meaningful Use (DIS) - VTE *Q VTE Criteria *Q: - Stroke *Q Stroke Criteria *Q: - AMI *Q AMI Criteria *Q:
[2016-08-18] MEDS ORDERED: Levofloxacin/Dextrose 5%-Water 750 MG in Premix Bag 1 BAG IV SCH (21:00)
[2016-08-18] MEDS ORDERED: cycloSPORINE Ophth Drops U/D Box of 30 EYERT SCH (21:00)
[2016-08-18] MEDS ORDERED: Levofloxacin/Dextrose 5%-Water 250 MG in Premix Bag 1 BAG IV SCH (21:00)
[2016-08-19] MEDS ORDERED: Levofloxacin/Dextrose 5%-Water 250 MG in Premix Bag 1 BAG IV SCH (01:30)
== END 2016-08-18 12:25 | DRG 280 ==
LOC: JP.ED 21:19 → JP.MS 08-18 00:23
PROVIDERS: ADMIT Hospitalist; ATTEND Hospitalist
DX: I21.4 Non-ST elevation (NSTEMI) myocardial infarction (principal); J18.9 Pneumonia, unspecified organism; N39.0 Urinary tract infection, site not specified; E11.65 Type 2 diabetes mellitus with hyperglycemia; Z79.4 Long term (current) use of insulin; G30.9 Alzheimer's disease, unspecified; F02.80 Dementia in other diseases classified elsewhere, unspecified severity, without behavioral disturbance, psychotic disturbance, mood disturbance, and anxiety; I25.10 Atherosclerotic heart disease of native coronary artery without angina pectoris; Z95.1 Presence of aortocoronary bypass graft; Z79.82 Long term (current) use of aspirin; I10 Essential (primary) hypertension; Z87.891 Personal history of nicotine dependence
CPT/HCPCS: 36415; 70450; 71020 ×2; 80053; 82803; 83605; 83880; 84484; 85025; 87040 ×2; 93005; 99285; A9270; J7040; 80048; 81001; 82962; 85610; 85730; 87086; 87088; 87186; 87804; 93010; 94640-76; 97162-GP; J0696; J1644; J1956; J7050; J7620

== ENCOUNTER 2016-08-26 13:10 | Inpatient (IN) | payer MEDICARE ==
[2016-08-26] MEDS ORDERED: Sodium Chloride 0.9% 10 ML Syringe FLUSH PRN ×2 (14:04→17:35)
--- NOTE | 2016-08-26 14:07 | EDM.PDOC ---
ED HPI GENERAL MEDICAL PROBLEM - General Chief Complaint: General Stated Complaint: MEDICAL Time Seen by Provider: 08/26/16 13:50 Source of Information: Reports: Patient, Family History Limitations: Reports: No Limitations - History of Present Illness INITIAL COMMENTS - FREE TEXT/NARRATIVE: Patient's extremely weak has a persistent cough. It has fallen at home. The patient was hospitalized here on , August 17 was transferred apart on August 18 was treated there for the pneumonia and the myocardial infarction was discharged home on August 22. The patient was sent home with 3 antibiotics tablets. The patient had a persistent cough Dr. Santamaria prescribed Tescristian Alvarez. The patient is extremely weak and is falling at home. His brought him to the hospital, she is unable to care for him at home. Onset: Gradual Onset Date: 08/23/16 Duration: Day(s):, Getting Worse Location: Reports: Generalized Quality: Reports: Ache, Pressure, Same as Previous Episode Severity: Severe Improves with: Reports: None Worsens with: Reports: Movement Context: Reports: Trauma. Denies: Activity, Exercise, Lifting, Sick Contact Associated Symptoms: Reports: Confusion, Cough, Fever/Chills, Headaches, Loss of Appetite, Shortness of Breath, Weakness Treatments [employer]N [employer] TECHNICIAN: Reports: Other Medication(s) - Related Data Allergies Allergy/AdvReac Type Severity Reaction Status Date / Time No Known Allergies Allergy Verified 08/26/16 13:22 Home Meds: Home Meds Aspirin [Adult Low Dose Aspirin EC] 81 mg PO DAILY 08/29/13 [History] Carvedilol [Coreg] 6.25 mg PO BID 08/29/13 [History] Insulin Aspart [NovoLOG] 0 - 4 unit SQ ASDIRECTED 08/29/13 [History] Insulin Glarg,Human.Rec.Analog [Lantus] 15 unit SQ BEDTIME 08/29/13 [History] Isosorbide Mononitrate [Imdur] 120 mg PO DAILY 08/29/13 [History] Multivitamin [Multivitamins] 1 tab PO DAILY 08/29/13 [History] Tamsulosin [Flomax] 0.4 mg PO DAILY 08/29/13 [History] Tiotropium [Spiriva HandiHaler] 1 cap INH DAILY 08/29/13 [History] cycloSPORINE [Restasis] 1 each OP ASDIRECTED 08/29/13 [History] Nitroglycerin [Nitrostat] 0.4 mg SL ASDIRECTED 08/17/16 [History] Ranolazine [Ranexa] 500 mg PO BID 08/17/16 [History] Rosuvastatin Calcium 5 mg PO ASDIRECTED 08/17/16 [History] Benzonatate 200 mg PO TID 08/26/16 [History] Clopidogrel [Plavix] 75 mg PO BEDTIME 08/26/16 [History] Gluc/Jude-Msm#1/Vit C/Maxi/Bor [Frqiipk-Tqenl-EOF Complex Cplt] 1 each PO DAILY 08/26/16 [History] Past Medical History HEENT History: Reports: Hard of Hearing, Impaired Vision, Other (See Below) Other HEENT History: Wears hearing aid Cardiovascular History: Reports: Bypass, CAD, High Cholesterol, Hypertension, [place] Respiratory History: Reports: COPD Genitourinary History: Reports: BPH Other Genitourinary History: Taked Flomax Psychiatric History: Reports: Dementia Endocrine/Metabolic History: Reports: Diabetes, Type II - Infectious Disease History Infectious Disease History: Reports: Chicken Pox - Past Surgical History HEENT Surgical History: Reports: Adenoidectomy, Laser Surgery, Tonsillectomy Cardiovascular Surgical History: Reports: Carotid Endarterectomy, Coronary Artery Bypass Respiratory Surgical History: Reports: Thoracotomy Musculoskeletal Surgical History: Reports: Shoulder Surgery Social & Family History - Tobacco Use Smoking Status *Q: Unknown Ever Smoked Used Tobacco, but Quit: Yes Month Tobacco Last Used: 1951 - Caffeine Use Caffeine Use: Reports: Coffee - Recreational Drug Use Recreational Drug Use: No - Living Situation & Occupation Living situation: Reports: , with Family Occupation: Retired (lives with Marilee of 64 years, [place] in [place], Summer at [employer] have 2 adult children one lives in [facility] , one live in [place].) ED ROS GENERAL - Review of Systems Review Of Systems: See Below Constitutional: Reports: Fever, Chills, Malaise, Weakness, Fatigue, Decreased Appetite HEENT: Reports: Hearing Loss, Rhinitis, Throat Pain, Vertigo Respiratory: Reports: Shortness of Breath, Pleuritic Chest Pain, Cough, Sputum Cardiovascular: Reports: Chest Pain, Dyspnea on Exertion, Lightheadedness, Palpitations Endocrine: Reports: Fatigue GI/Abdominal: Reports: Decreased Appetite, Nausea : Reports: Frequency, Urgency Musculoskeletal: Reports: Back Pain, Joint Pain, Muscle Pain Skin: Reports: Dryness, Bruising, Pruritis Neurological: Reports: Confusion, Dizziness, Headache, Numbness, Paresthesia, Difficulty Walking, Weakness, Gait Disturbance Psychiatric: Reports: Anxiety, Depression Hematologic/Lymphatic: Reports: Anemia, Easy Bruising ED EXAM, GENERAL - Physical Exam Exam: See Below Exam Limited By: Physical Impairment General Appearance: Lethargic, Severe Distress Eye Exam: Bilateral Eye: Conjunctival Injection, Normal Inspection Ears: Hearing Grossly Normal Nose: Normal Inspection Throat/Mouth: No: Normal Inspection, Normal Voice Head: Atraumatic, Facial Tenderness, Sinus Tenderness Neck: Limited Range of Motion, Lymphadenopathy (R), Lymphadenopathy (L) Respiratory/Chest: Decreased Breath Sounds, Rales, Rhonchi Cardiovascular: Systolic Murmur. No: Normal Peripheral Pulses GI/Abdominal: Soft, No Mass Back Exam: Decreased Range of Motion Extremities: Slow Capillary Refill, Limited Range of Motion Neurological: Confused, Slow to Respond, Memory Loss Recent Events Psychiatric: Anxious, Depressed Mood Skin Exam: Cool, Ecchymosis Course - Vital Signs Last Recorded V/S: Last Vital Signs Temp 99.0 F 08/26/16 13:18 Pulse 61 08/26/16 15:17 Resp 20 08/26/16 15:17 BP 132/66 08/26/16 15:17 Pulse Ox 90 L 08/26/16 15:17 - Orders/Labs/Meds Orders: Active Orders 24 hr Category Date Time Status Cardiac Monitoring [RC] .As Directed Care 08/26/16 14:05 Active Cardiac Monitoring [RC] .As Directed Care 08/26/16 16:37 Ordered Overnight Pulse Oximetry [RC] Click to Edit Care 08/26/16 14:05 Active Oxygen Therapy, ED [RC] ASDIRECTED Care 08/26/16 15:02 Ordered Peripheral IV Care [RC] . DIRECTED Care 08/26/16 14:04 Active Chest 2V [CR] Stat Exams 08/26/16 14:04 Ordered CULTURE BLOOD [BC] Urgent Lab 08/26/16 15:06 Ordered CULTURE BLOOD [BC] Urgent Lab 08/26/16 15:06 Ordered Sodium Chloride 0.9% [Saline Flush] Med 08/26/16 14:04 Active 10 ml FLUSH ASDIRECTED PRN Blood Culture x2 Reflex Set [OM.PC] Urgent Oth 08/26/16 15:06 Ordered Peripheral IV Insertion Adult [OM.PC] Stat Oth 08/26/16 14:04 Ordered Pulse Oximetry Continuous Monitoring [OM.PC] Routine Ot 08/26/16 14:05 Ordered Resuscitation Status Routine Resus Stat 08/26/16 16:39 Ordered Medication Orders Sodium Chloride (Saline Flush) 10 ml FLUSH ASDIRECTED PRN PRN Reason: Keep Vein Open Last Admin: 08/26/16 14:27 Dose: 10 ml Labs: Laboratory Tests 08/26/16 08/26/16 08/26/16 Range/Units 14:05 14:23 14:23 WBC 19.7 H (4.5-11.0) K/uL RBC 3.29 L (4.30-5.90) M/uL Hgb 10.6 L (12.0-15.0) g/dL Hct 31.2 L (40.0-54.0) % MCV 95 (80-98) fL MCH 32 H (27-31) pg MCHC 34 (32-36) % Plt Count 396 (150-400) K/uL Neut % (Auto) 85 H (36-66) % Lymph % (Auto) 6 L (24-44) % Boundary % (Auto) 7 H (2-6) % Eos % (Auto) 2 (2-4) % Baso % (Auto) 0 (0-1) % Puncture Site Left radial ABG pH 7.475 H (7.350-7.450) ABG pCO2 34.5 L (35.0-42.0) mmHg ABG pO2 52.1 L (75.0-100.0) mmHg ABG HCO3 25.1 (22.0-26.0) mmol/L ABG Total CO2 23.0 (23.0-27.0) mmol/L ABG O2 Saturation 85.8 L (95.0-98.0) % ABG O2 Content 12.4 L (15.0-23.0) %vol ABG Base Excess 2.2 mm/L ABG Hemoglobin 10.5 L (13.5-18.0) g/dL ABG Oxyhemoglobin 84.3 % ABG Carboxyhemoglobin 1.2 (0.0-1.6) % ABG Methemoglobin 0.5 % Khari Test Passed O2 Delivery Device Room air Sodium 132 L (140-148) mmol/L Potassium 4.2 (3.6-5.2) mmol/L Chloride 97 L (100-108) mmol/L Carbon Dioxide 29 (21-32) mmol/L Anion Gap 10.2 (5.0-14.0) mmol/L BUN 28 H (7-18) mg/dL Creatinine 1.4 H (0.8-1.3) mg/dL Est Cr Clr Drug Dosing 40.92 mL/min Estimated GFR (MDRD) 48 L (>60) Glucose 234 H (74-106) mg/dL Calcium 7.8 L (8.5-10.1) mg/dL Total Bilirubin 0.6 (0.2-1.0) mg/dL AST 25 (15-37) U/L ALT 15 (12-78) U/L Alkaline Phosphatase 87 (46-116) U/L Troponin I 0.074 H* (0.000-0.056) ng/mL Nhq-R-Llvrxvzying Pept (5-450) pg/mL Total Protein 6.4 (6.4-8.2) g/dL Albumin 2.1 L (3.4-5.0) g/dL Globulin 4.3 H (2.3-3.5) g/dL Albumin/Globulin Ratio 0.5 L (1.2-2.2) 08/26/16 Range/Units 14:23 WBC (4.5-11.0) K/uL RBC (4.30-5.90) M/uL Hgb (12.0-15.0) g/dL Hct (40.0-54.0) % MCV (80-98) fL MCH (27-31) pg MCHC (32-36) % Plt Count (150-400) K/uL Neut % (Auto) (36-66) % Lymph % (Auto) (24-44) % Boundary % (Auto) (2-6) % Eos % (Auto) (2-4) % Baso % (Auto) (0-1) % Puncture Site ABG pH (7.350-7.450) ABG pCO2 (35.0-42.0) mmHg ABG pO2 (75.0-100.0) mmHg ABG HCO3 (22.0-26.0) mmol/L ABG Total CO2 (23.0-27.0) mmol/L ABG O2 Saturation (95.0-98.0) % ABG O2 Content (15.0-23.0) %vol ABG Base Excess mm/L ABG Hemoglobin (13.5-18.0) g/dL ABG Oxyhemoglobin % ABG Carboxyhemoglobin (0.0-1.6) % ABG Methemoglobin % Khari Test O2 Delivery Device Sodium (140-148) mmol/L Potassium (3.6-5.2) mmol/L Chloride (100-108) mmol/L Carbon Dioxide (21-32) mmol/L Anion Gap (5.0-14.0) mmol/L BUN (7-18) mg/dL Creatinine (0.8-1.3) mg/dL Est Cr Clr Drug Dosing mL/min Estimated GFR (MDRD) (>60) Glucose (74-106) mg/dL Calcium (8.5-10.1) mg/dL Total Bilirubin (0.2-1.0) mg/dL AST (15-37) U/L ALT (12-78) U/L Alkaline Phosphatase (46-116) U/L Troponin I (0.000-0.056) ng/mL Xdq-[id number]-Kkhpxmeabtb Pept 4067 H (5-450) pg/mL Total Protein (6.4-8.2) g/dL Albumin (3.4-5.0) g/dL Globulin (2.3-3.5) g/dL Albumin/Globulin Ratio (1.2-2.2) Meds: Medications Generic Name Dose Route Start Last Admin Trade Name Freq PRN Reason Stop Dose Admin Sodium Chloride 10 ml 08/26/16 14:04 08/26/16 14:27 Saline Flush FLUSH 10 ml ASDIRECTED PRN Administration Keep Vein Open Departure - Departure Time of Disposition: 16:44 Disposition: Admitted As Inpatient 67 Condition: fair Clinical Impression: Pneumonia, Congestive heart failure (CHF), Elevated troponin I level - Discharge Information Referrals: Jh Carrion MD [Primary Care Provider] - Additional Instructions: Dr. Henry consulted on the patient's care and treatment. The patient will be admitted to the hospital and start on IV antibiotics. His pneumonia has worsened. The patient still has elevated troponin. He has a marked elevation in his BNP. He is unstable in gait and his cannot care for him at home. - Problem List & Annotations (1) Elevated troponin I level SNOMED Code(s): 879816870 Code(s): R74.8 - ABNORMAL LEVELS OF OTHER SERUM ENZYMES Status: Acute Priority: Medium Current Visit: Yes (2) Congestive heart failure (CHF) SNOMED Code(s): 20378295 Code(s): I50.9 - HEART FAILURE, UNSPECIFIED Status: Acute Priority: Medium Current Visit: Yes Qualifiers: Congestive heart failure type: unspecified congestive heart failure type Congestive heart failure chronicity: acute Qualified Code(s): I50.9 - Heart failure, unspecified (3) Pneumonia SNOMED Code(s): 343551416 Code(s): J18.9 - PNEUMONIA, UNSPECIFIED ORGANISM Status: Acute Priority: High Current Visit: Yes Qualifiers: Pneumonia type: due to unspecified organism Laterality: bilateral Lung location: unspecified part of lung Qualified Code(s): J18.9 - Pneumonia, unspecified organism - Problem List Review Problem List Initiated/Reviewed/Updated: Yes - My Orders Last 24 Hours: My Active Orders 08/26/16 14:04 Peripheral IV Care [RC] . DIRECTED Chest 2V [CR] Stat Sodium Chloride 0.9% [Saline Flush] 10 ml FLUSH ASDIRECTED PRN Peripheral IV Insertion Adult [OM.PC] Stat 08/26/16 14:05 Cardiac Monitoring [RC] .As Directed Overnight Pulse Oximetry [RC] Click to Edit Pulse Oximetry Continuous Monitoring [OM.PC] Routine 08/26/16 15:02 Oxygen Therapy, ED [RC] ASDIRECTED 08/26/16 15:06 CULTURE BLOOD [BC] Urgent CULTURE BLOOD [BC] Urgent Blood Culture x2 Reflex Set [OM.PC] Urgent - Assessment/Plan Last 24 Hours: My Active Orders 08/26/16 14:04 Peripheral IV Care [RC] . DIRECTED Chest 2V [CR] Stat Sodium Chloride 0.9% [Saline Flush] 10 ml FLUSH ASDIRECTED PRN Peripheral IV Insertion Adult [OM.PC] Stat 08/26/16 14:05 Cardiac Monitoring [RC] .As Directed Overnight Pulse Oximetry [RC] Click to Edit Pulse Oximetry Continuous Monitoring [OM.PC] Routine 08/26/16 15:02 Oxygen Therapy, ED [RC] ASDIRECTED 08/26/16 15:06 CULTURE BLOOD [BC] Urgent CULTURE BLOOD [BC] Urgent Blood Culture x2 Reflex Set [OM.PC] Urgent
--- NOTE | 2016-08-26 16:59 | PCM.HP ---
H&P History of Present Illness - General Date of Service: 08/26/16 Admit Problem/Dx: Source of Information: Patient, Family, Old Records, Provider, RN Notes Reviewed History Limitations: Reports: No Limitations - History of Present Illness Initial Comments - Free Text/Narative: This patient is an 86-year-old gentleman who is admitted through the emergency room with recurrent pneumonia and hypoxic respiratory failure. He was hospitalized at this facility over a week ago with pneumonia, troponin level was mildly elevated on admission and on recheck had increased significantly. For this reason he was transferred to [facility] for further evaluation and management. Decision was made not to proceed with angiogram for further evaluation of his non-STEMI. He received IV antibiotics with levofloxacin while hospitalized and was discharged to home with 3 days of oral levofloxacin. Antibiotic ended 2 days ago, yesterday redeveloped respiratory compromise and cough. He became progressively more weak and had fallen twice at home requiring assistance in getting up. His brought him into the emergency department for reevaluation today, chest x-ray shows increased infiltrate in the right lung. Blood cultures have been obtained and sputum culture is pending. - Related Data Allergies/Adverse Reactions: Allergies Allergy/AdvReac Type Severity Reaction Status Date / Time No Known Allergies Allergy Verified 08/26/16 13:22 Home Medications: Home Meds Aspirin [Adult Low Dose Aspirin EC] 81 mg PO DAILY 08/29/13 [History] Carvedilol [Coreg] 6.25 mg PO BID 08/29/13 [History] Insulin Aspart [NovoLOG] 0 - 4 unit SQ ASDIRECTED 08/29/13 [History] Insulin Glarg,Human.Rec.Analog [Lantus] 15 unit SQ BEDTIME 08/29/13 [History] Isosorbide Mononitrate [Imdur] 120 mg PO DAILY 08/29/13 [History] Multivitamin [Multivitamins] 1 tab PO DAILY 08/29/13 [History] Tamsulosin [Flomax] 0.4 mg PO DAILY 08/29/13 [History] Tiotropium [Spiriva HandiHaler] 1 cap INH DAILY 08/29/13 [History] cycloSPORINE [Restasis] 1 each OP ASDIRECTED 08/29/13 [History] Nitroglycerin [Nitrostat] 0.4 mg SL ASDIRECTED 08/17/16 [History] Ranolazine [Ranexa] 500 mg PO BID 08/17/16 [History] Rosuvastatin Calcium 5 mg PO ASDIRECTED 08/17/16 [History] Benzonatate 200 mg PO TID 08/26/16 [History] Clopidogrel [Plavix] 75 mg PO BEDTIME 08/26/16 [History] Gluc/Jude-Msm#1/Vit C/Maxi/Bor [Qmilhcp-Oehyu-GXD Complex Cplt] 1 each PO DAILY 08/26/16 [History] Past Medical History HEENT History: Reports: Hard of Hearing, Impaired Vision, Other (See Below) Other HEENT History: Wears hearing aid Cardiovascular History: Reports: Bypass, CAD, High Cholesterol, Hypertension, AR Respiratory History: Reports: COPD Genitourinary History: Reports: BPH Other Genitourinary History: Taked Flomax Psychiatric History: Reports: Dementia Endocrine/Metabolic History: Reports: Diabetes, Type II - Infectious Disease History Infectious Disease History: Reports: Chicken Pox - Past Surgical History HEENT Surgical History: Reports: Adenoidectomy, Laser Surgery, Tonsillectomy Cardiovascular Surgical History: Reports: Carotid Endarterectomy, Coronary Artery Bypass Respiratory Surgical History: Reports: Thoracotomy Musculoskeletal Surgical History: Reports: Shoulder Surgery Social & Family History - Tobacco Use Smoking Status *Q: Unknown Ever Smoked Used Tobacco, but Quit: Yes Month Tobacco Last Used: 1951 - Caffeine Use Caffeine Use: Reports: Coffee - Recreational Drug Use Recreational Drug Use: No - Living Situation & Occupation Living situation: Reports: , with Family Occupation: Retired (lives with Marilee of 64 years, [place] in [place], Summer at [employer], have 2 adult children one lives in [facility] , one live in [place].) H&P Review of Systems - Review of Systems: Review Of Systems: Unable To Obtain General: Reports: ROS unobtainable (Secondary to dementia and weakness) Exam - Exam Exam: See Below - Vital Signs Vital Signs: Last Vital Signs Temp 99.0 F 08/26/16 13:18 Pulse 61 08/26/16 15:17 Resp 20 08/26/16 15:17 BP 132/66 08/26/16 15:17 Pulse Ox 90 L 08/26/16 15:17 Weight: 171 lb 7.961 oz - Exam Quality Assessment: Supplemental Oxygen, DVT Prophylaxis General: Lethargic HEENT: Conjunctiva Clear, EOMI, Nares Patent, Normal Nasal Septum, Posterior Pharynx Clear, Pupils Equal, Pupils Reactive. No: Hearing Intact Neck: Supple, Trachea Midline, +2 Carotid Pulse wo Bruit Lungs: Decreased Breath Sounds, Crackles. No: Rales, Rhonchi, Rub, Stridor, Wheezing Cardiovascular: Regular Rate, Regular Rhythm, Normal S1, Normal S2. No: Systolic Murmur, Diastolic Murmur Abdomen: Normal Bowel Sounds, Soft Back Exam: Normal Inspection, Full Range of Motion, NT Extremities: 3, Normal Inspection, 10 Skin: Warm, Dry, Intact Neurological: Cranial Nerves Intact, Strength Equal Bilateral, Normal Speech, Normal Tone, Sensation Intact. No: Focal Deficit Neuro Extensive - Mental Status: Disorientation to Place, Disorientation to Time , Memory Loss-Remote Events, Memory Loss-Recent Events - Patient Data Lab Results last 24 hrs: Laboratory Results - last 24 hr 08/26/16 08/26/16 08/26/16 Range/Units 14:05 14:23 14:23 WBC 19.7 H (4.5-11.0) K/uL RBC 3.29 L (4.30-5.90) M/uL Hgb 10.6 L (12.0-15.0) g/dL Hct 31.2 L (40.0-54.0) % MCV 95 (80-98) fL MCH 32 H (27-31) pg MCHC 34 (32-36) % Plt Count 396 (150-400) K/uL Neut % (Auto) 85 H (36-66) % Lymph % (Auto) 6 L (24-44) % Wright % (Auto) 7 H (2-6) % Eos % (Auto) 2 (2-4) % Baso % (Auto) 0 (0-1) % Puncture Site Left radial ABG pH 7.475 H (7.350-7.450) ABG pCO2 34.5 L (35.0-42.0) mmHg ABG pO2 52.1 L (75.0-100.0) mmHg ABG HCO3 25.1 (22.0-26.0) mmol/L ABG Total CO2 23.0 (23.0-27.0) mmol/L ABG O2 Saturation 85.8 L (95.0-98.0) % ABG O2 Content 12.4 L (15.0-23.0) %vol ABG Base Excess 2.2 mm/L ABG Hemoglobin 10.5 L (13.5-18.0) g/dL ABG Oxyhemoglobin 84.3 % ABG Carboxyhemoglobin 1.2 (0.0-1.6) % ABG Methemoglobin 0.5 % Khari Test Passed O2 Delivery Device Room air Sodium 132 L (140-148) mmol/L Potassium 4.2 (3.6-5.2) mmol/L Chloride 97 L (100-108) mmol/L Carbon Dioxide 29 (21-32) mmol/L Anion Gap 10.2 (5.0-14.0) mmol/L BUN 28 H (7-18) mg/dL Creatinine 1.4 H (0.8-1.3) mg/dL Est Cr Clr Drug Dosing 40.92 mL/min Estimated GFR (MDRD) 48 L (>60) Glucose 234 H (74-106) mg/dL Calcium 7.8 L (8.5-10.1) mg/dL Total Bilirubin 0.6 (0.2-1.0) mg/dL AST 25 (15-37) U/L ALT 15 (12-78) U/L Alkaline Phosphatase 87 (46-116) U/L Troponin I 0.074 H* (0.000-0.056) ng/mL Phx-T-Zkzmalzwkea Pept (5-450) pg/mL Total Protein 6.4 (6.4-8.2) g/dL Albumin 2.1 L (3.4-5.0) g/dL Globulin 4.3 H (2.3-3.5) g/dL Albumin/Globulin Ratio 0.5 L (1.2-2.2) 08/26/ Range/Units 14:23 WBC (4.5-11.0) K/uL RBC (4.30-5.90) M/uL Hgb (12.0-15.0) g/dL Hct (40.0-54.0) % MCV (80-98) fL MCH (27-31) pg MCHC (32-36) % Plt Count (150-400) K/uL Neut % (Auto) (36-66) % Lymph % (Auto) (24-44) % Wright % (Auto) (2-6) % Eos % (Auto) (2-4) % Baso % (Auto) (0-1) % Puncture Site ABG pH (7.350-7.450) ABG pCO2 (35.0-42.0) mmHg ABG pO2 (75.0-100.0) mmHg ABG HCO3 (22.0-26.0) mmol/L ABG Total CO2 (23.0-27.0) mmol/L ABG O2 Saturation (95.0-98.0) % ABG O2 Content (15.0-23.0) %vol ABG Base Excess mm/L ABG Hemoglobin (13.5-18.0) g/dL ABG Oxyhemoglobin % ABG Carboxyhemoglobin (0.0-1.6) % ABG Methemoglobin % Khari Test O2 Delivery Device Sodium (140-148) mmol/L Potassium (3.6-5.2) mmol/L Chloride (100-108) mmol/L Carbon Dioxide (21-32) mmol/L Anion Gap (5.0-14.0) mmol/L BUN (7-18) mg/dL Creatinine (0.8-1.3) mg/dL Est Cr Clr Drug Dosing mL/min Estimated GFR (MDRD) (>60) Glucose (74-106) mg/dL Calcium (8.5-10.1) mg/dL Total Bilirubin (0.2-1.0) mg/dL AST (15-37) U/L ALT (12-78) U/L Alkaline Phosphatase (46-116) U/L Troponin I (0.000-0.056) ng/mL Byw-E-Nfocmltrqhs Pept 4067 H (5-450) pg/mL Total Protein (6.4-8.2) g/dL Albumin (3.4-5.0) g/dL Globulin (2.3-3.5) g/dL Albumin/Globulin Ratio (1.2-2.2) Result Diagrams: 08/26/16 14:23 08/26/16 14:23 *Q Meaningful Use (ADM) - VTE *Q VTE Criteria *Q: - VTE Risk Assess *Q Each Risk Factor Represents 1 Point: Swollen Legs, Current, Serious Lung Disease Including Pneumonia, Less than 1 Month, Abnormal Pulmonary Function ( COPD) Total Score 1 Point Risk Factors: 3 Each Risk Factor Represents 2 Points: None Total Score 2 Point Risk Factors: 0 Each Risk Factor Represents 3 Points: Age 75 Years or Greater Total Score 3 Point Risk Factors: 3 Each Risk Factor Represents 5 Points: None Total Score 5 Point Risk Factors: 0 Venous Thromboembolism Risk Factor Score *Q: 6 - Stroke *Q Stroke Criteria *Q: - AMI *Q AMI Criteria *Q: Problem List Initiated/Reviewed/Updated: Yes Orders Last 24hrs: Active Orders 24 hr Category Date Time Status Cardiac Monitoring [RC] .As Directed Care 08/26/16 14:05 Active Cardiac Monitoring [RC] .As Directed Care 08/26/16 16:37 Active Overnight Pulse Oximetry [RC] Click to Edit Care 08/26/16 14:05 Active Oxygen Therapy, ED [RC] ASDIRECTED Care 08/26/16 15:02 Active Peripheral IV Care [RC] . DIRECTED Care 08/26/16 14:04 Active Chest 2V [CR] Stat Exams 08/26/16 14:04 Taken CULTURE BLOOD [BC] Urgent Lab 08/26/16 15:10 Received CULTURE BLOOD [BC] Urgent Lab 08/26/16 15:20 Received Sodium Chloride 0.9% [Saline Flush] Med 08/26/16 14:04 Active 10 ml FLUSH ASDIRECTED PRN Blood Culture x2 Reflex Set [OM.PC] Urgent Oth 08/26/16 15:06 Ordered Peripheral IV Insertion Adult [OM.PC] Stat Oth 08/26/16 14:04 Ordered Pulse Oximetry Continuous Monitoring [OM.PC] Routine Oth 08/26/16 14:05 Ordered Resuscitation Status Routine Resus Stat 08/26/16 16:39 Ordered Medication Orders Sodium Chloride (Saline Flush) 10 ml FLUSH ASDIRECTED PRN PRN Reason: Keep Vein Open Last Admin: 08/26/16 14:27 Dose: 10 ml Assessment/Plan Comment:: ASSESSMENT AND PLAN RIGHT LUNG PNEUMONIA-recurrence, versus incomplete treatment. Hospitalized last week for pneumonia and treated with IV antibiotics, then transitioned to oral antibiotics. Within 24 hours of stopping oral antibiotics redeveloped respiratory symptoms and cough. He does of recurrence and recent hospitalization we'll need to treat with broad-spectrum IV antibiotics. -IV fluids for hydration -Supplemental oxygen -Blood and sputum cultures pending -IV antibiotic therapy with vancomycin, Rocephin, and levofloxacin HYPOXIC RESPIRATORY FAILURE-secondary to pneumonia -Oxygen as above -Consider BiPAP if he develops further respiratory compromise RECENT [id number] recent hospitalization and pneumonia. He was seen and evaluated at tertiary care Center and decision was made not to pursue angiogram. After evaluation and felt that he is not a candidate for further aggressive intervention or evaluation and should be treated with medications. -Continue outpatient medical regimen TYPE 2 DIABETES MELLITUS -Continue long-acting insulin -Low-dose sliding scale NovoLog -4 times a day glucometers PALLIATIVE CARE-he is currently DNR/DNI, decision has been made not to pursue aggressive management of his coronary artery disease. MAINTENANCE ISSUES -DVT prophylaxis; Lovenox 40 mg subcutaneous daily -GI prophylaxis; not indicated -Ptael catheter; not indicated -Nutrition; 2 g sodium diabetic diet -Nicotine dependence; not required CODE STATUS-DNR/DNI ADMISSION STATUS-patient will be admitted to inpatient status, expect at least a 2 night hospital stay for evaluation and management of problems as outlined above. At the time of this admission I do not reasonably expected evaluation and management of this problem will require more than a 96 hour hospital stay. DISPOSITION-anticipate discharge to home after the hospital stay. PRIMARY CARE PROVIDER-Dr. Carrion
[2016-08-26] MEDS ORDERED: Albuterol 0.083% 2.5 MG/3 ML Neb Soln NEB PRN (17:35)
[2016-08-26] MEDS ORDERED: Docusate Sodium 100 MG Cap PO PRN (17:35)
[2016-08-26] MEDS ORDERED: Acetaminophen 325 MG Tab PO PRN (17:35)
[2016-08-26] MEDS ORDERED: Glucose Gel 15 GM in 37.5 GM Tube PO PRN (17:35)
[2016-08-26] MEDS ORDERED: Vancomycin 1 GM SDV IV ONE (17:35)
[2016-08-26] MEDS ORDERED: Magnesium Hydroxide 400 MG/5 ML Susp 30 ML Cup PO PRN (17:35)
[2016-08-26] MEDS ORDERED: Polyethylene Glycol 3350 Powder 17 GM Packet PO PRN (17:35)
[2016-08-26] MEDS ORDERED: 50% Dextrose in Water 50 ML Syringe IV PRN (17:35)
[2016-08-26] MEDS ORDERED: oxyCODONE 5 MG Tab PO PRN (17:35)
[2016-08-26] MEDS ORDERED: Nitroglycerin 0.4 MG Tab.SL SL PRN (17:35)
[2016-08-26] MEDS ORDERED: Enoxaparin 40 MG/0.4 ML Syringe SUBCUT SCH (17:35)
[2016-08-26] MEDS ORDERED: Ondansetron 4 MG/2 ML SDV IV PRN (17:35)
[2016-08-26] MEDS ORDERED: Sodium Chloride 0.9% 1,000 ML IV SCH (17:35)
[2016-08-26] MEDS ORDERED: Levofloxacin/Dextrose 5%-Water 750 MG in Premix Bag 1 BAG IV SCH (18:00)
[2016-08-26] MEDS: Insulin Aspart 100 Units/ML 3 ML Pen SUBCUT PRN ×2 (18:41→20:42)
[2016-08-26] MEDS: cefTRIAXone 2 GM in Sodium Chloride 0.9% 50 ML IV SCH (19:44)
[2016-08-26] MEDS: Albuterol/Ipratropium 3.0-0.5 MG/3 ML Neb Soln NEB SCH (20:33)
[2016-08-26] MEDS: Melatonin 3 MG Tab PO SCH (20:34)
[2016-08-26] MEDS: Clopidogrel 75 MG Tab PO SCH (20:34)
[2016-08-26] MEDS ORDERED: Sodium Chloride 0.9% 250 ML ONE (20:57)
[2016-08-26] MEDS ORDERED: Carvedilol 6.25 MG Tab PO SCH (21:00)
[2016-08-26] MEDS ORDERED: Insulin Detemir 100 Units/ML 3 ML Pen SUBCUT SCH (21:00)
[2016-08-27] MEDS: Albuterol/Ipratropium 3.0-0.5 MG/3 ML Neb Soln NEB SCH ×4 (07:07→20:53)
[2016-08-27] MEDS: Tiotropium Inhaler 18 MCG Inhalation Powder Cap Kit of 5 INH SCH (08:51)
[2016-08-27] MEDS ORDERED: cycloSPORINE Ophth Drops U/D Box of 30 EYELF SCH (09:00)
[2016-08-27] MEDS ORDERED: Enoxaparin 40 MG/0.4 ML Syringe SUBCUT SCH (09:00)
--- NOTE | 2016-08-27 09:12 | PCM.PN ---
- General Info Date of Service: 08/27/16 Functional Status: Reports: pain controlled, tolerating diet - Review of Systems General: Reports: Weakness. Denies: Fever, Chills Pulmonary: Reports: shortness of breath, cough, wheezing. Denies: sputum, hemoptysis Cardiovascular: Reports: Dyspnea on Exertion, Edema. Denies: Chest Pain, Palpitations, Orthopnea, PND Gastrointestinal: Reports: No symptoms Psychiatric: Reports: confusion Systems Review Comment:: This patient has improved since admission, with less shortness of breath and cough. Oxygenation has been good on supplemental oxygen, appetite seems to be improved. He did have a mild temperature elevation during the night, vital signs are now stable. - Patient Data Vitals - most recent: Last Vital Signs Temp 100.2 F 08/26/16 22:41 Pulse 66 08/27/16 07:07 Resp 17 08/27/16 06:00 BP 129/70 08/27/16 06:00 Pulse Ox 94 L 08/27/16 06:00 Weight - most recent: 169 lb 12.095 oz I&O - last 24 hours: Intake & Output 08/26/16 08/27/16 08/27/16 22:59 06:59 14:59 Intake Total 1427 Output Total 250 2300 Balance -250 -873 Lab Results last 24 hrs: Laboratory Results - last 24 hr 08/27/16 08/27/16 Range/Units 05:14 05:14 WBC 14.4 H (4.5-11.0) K/uL RBC 3.19 L (4.30-5.90) M/uL Hgb 10.1 L (12.0-15.0) g/dL Hct 30.2 L (40.0-54.0) % MCV 95 (80-98) fL MCH 32 H (27-31) pg MCHC 33 (32-36) % Plt Count 351 (150-400) K/uL Neut % (Auto) 80 H (36-66) % Lymph % (Auto) 8 L (24-44) % Real % (Auto) 8 H (2-6) % Eos % (Auto) 3 (2-4) % Baso % (Auto) 1 (0-1) % Sodium 140 (140-148) mmol/L Potassium 4.0 (3.6-5.2) mmol/L Chloride 105 (100-108) mmol/L Carbon Dioxide 30 (21-32) mmol/L Anion Gap 5.0 (5.0-14.0) mmol/L BUN 24 H (7-18) mg/dL Creatinine 1.3 (0.8-1.3) mg/dL Est Cr Clr Drug Dosing 45.25 mL/min Estimated GFR (MDRD) 52 L (>60) Glucose 71 L (74-106) mg/dL Calcium 7.8 L (8.5-10.1) mg/dL Magnesium 2.0 (1.8-2.4) mg/dL Med Orders - Current: Current Medications Acetaminophen (Tylenol) 650 mg PO Q4H PRN PRN Reason: Pain (Mild 1-3)/fever Last Admin: 08/26/16 20:34 Dose: 650 mg Albuterol (Proventil Neb Soln) 2.5 mg NEB Q4H PRN PRN Reason: Shortness Of Breath/wheezing Albuterol/Ipratropium (Duoneb 3.0-0.5 Mg/3 Ml) 3 ml NEB QIDRT [facility] Last Admin: 08/27/16 07:07 Dose: 3 ml Aspirin (Halfprin) 81 mg PO DAILY [facility] Carvedilol (Coreg) 6.25 mg PO BIDMEALS [facility] Clopidogrel Bisulfate (Plavix) 75 mg PO BEDTIME [facility] Last Admin: 08/26/16 20:34 Dose: 75 mg Cyclosporine (Restasis) 0 each EYELF DAILY [facility] Dextrose (Glutose 15) 15 gm PO ONETIME PRN PRN Reason: Hypoglycemia Dextrose/Water (Dextrose 50% In Water) 50 ml IV ONETIME PRN PRN Reason: Hypoglycemia Docusate Sodium (Colace) 100 mg PO BID PRN PRN Reason: Constipation Enoxaparin Sodium (Lovenox) 40 mg SUBCUT Q24H [facility] Levofloxacin/Dextrose 750 mg/ (Premix) 150 mls @ 100 mls/hr IV Q48H [facility] Last Admin: 08/26/16 18:02 Dose: 100 mls/hr Ceftriaxone Sodium 2 gm/ (Sodium Chloride) 50 mls @ 100 mls/hr IV Q24H [facility] Last Admin: 08/26/16 19:44 Dose: 100 mls/hr Vancomycin HCl 1.25 gm/ Sodium (Chloride) 250 mls @ 166.667 mls/hr IV Q24H [facility] Last Admin: 08/26/16 21:03 Dose: 166.667 mls/hr Insulin Aspart (Novolog) 0 unit SUBCUT ASDIRECTED PRN; Protocol PRN Reason: PER SLIDING SCALE Last Admin: 08/26/16 20:42 Dose: 5 units Insulin Detemir (Levemir) 15 unit SUBCUT BEDTIME [facility] Last Admin: 08/26/16 20:42 Dose: 15 unit Isosorbide Mononitrate (Imdur) 120 mg PO DAILY [facility] Magnesium Hydroxide (Milk Of Magnesia) 30 ml PO Q12H PRN PRN Reason: Constipation Melatonin (Melatonin) 9 mg PO BEDTIME [facility] Last Admin: 08/26/16 20:34 Dose: 9 mg Methylprednisolone Sodium Succinate (Solu-Medrol) 40 mg IVPUSH Q8H [facility] Nitroglycerin (Nitrostat) 0.4 mg SL ASDIRECTED PRN PRN Reason: CHEST DISCOMFORT Non-Formulary Medication (Ranolazine [Ranexa]) 500 mg PO BID [facility] Ondansetron HCl (Zofran) 4 mg IV Q4H PRN PRN Reason: Nausea/Vomiting Oxycodone HCl (Oxycodone) 5 mg PO Q4H PRN PRN Reason: Pain (moderate 4-6) Polyethylene Glycol (Miralax) 17 gm PO DAILY PRN PRN Reason: Constipation Rosuvastatin Calcium (Crestor) 5 mg PO [id number] [facility] Sodium Chloride (Saline Flush) 10 ml FLUSH ASDIRECTED PRN PRN Reason: Keep Vein Open Tamsulosin HCl (Flomax) 0.4 mg PO DAILY [facility] Tiotropium [place] (Spiriva Handihaler) 18 mcg INH DAILY [facility] Last Admin: 08/27/16 08:51 Dose: 18 mcg Vancomycin HCl (Vancomycin) 1 gm IV ASDIRECTED ONE Stop: 08/26/16 17:36 Discontinued Medications Carvedilol (Coreg) 6.25 mg PO BID [facility] Last Admin: 08/26/16 20:34 Dose: 6.25 mg Enoxaparin Sodium (Lovenox) 40 mg SUBCUT DAILY [facility] Last Admin: 08/26/16 18:38 Dose: 40 mg Enoxaparin Sodium (Lovenox) 40 mg SUBCUT Q24H [facility] Sodium Chloride (Normal Saline) 1,000 mls @ 125 mls/hr IV ASDIRECTED PAULA Last Admin: 08/27/16 05:35 Dose: 125 mls/hr Sodium Chloride (Normal Saline) Confirm Administered Dose 250 mls @ as directed .ROUTE .STK-MED ONE Stop: 08/26/16 20:58 Last Admin: 08/26/16 21:04 Dose: Not Given Sodium Chloride (Saline Flush) 10 ml FLUSH ASDIRECTED PRN PRN Reason: Keep Vein Open Last Admin: 08/26/16 14:27 Dose: 10 ml - Exam Quality Assessment: supplemental oxygen, urine catheter, DVT prophylaxis General: alert, cooperative, no acute distress Lungs: Normal respiratory effort, Decreased breath sounds, Wheezing. No: Crackles, Rales, Rhonchi, Rub, Stridor Cardiovascular: Regular Rate, Regular Rhythm, No Murmurs Abdomen: bowel sounds present, soft, no tenderness, no distension Extremities: edema Skin: warm, dry, intact - Problem List Review Problem List Initiated/Reviewed/Updated: Yes - My Orders Last 24 Hours: My Active Orders 08/26/16 20:00 Vancomycin 1.25 gm Sodium Chloride 0.9% [Normal Saline] 250 ml IV Q24H 08/26/16 23:18 Urinary Catheter Assessment [RC] ASDIRECTED 08/27/16 09:00 cycloSPORINE [Restasis] 0 each EYELF DAILY 08/27/16 09:03 Cardiac Monitoring [RC] .As Directed 08/27/16 09:08 Convert IV to Saline Lock [OM.PC] Routine 08/27/16 09:15 methylPREDNISolone Sod Succ [Solu-MEDROL] 40 mg IVPUSH Q8H 08/27/16 17:00 Carvedilol [Coreg] 6.25 mg PO BIDMEALS Enoxaparin [Lovenox] 40 mg SUBCUT Q24H 08/27/16 23:30 Insert Patel Catheter [Insert Urinary Catheter] [OM.PC] Q24H 08/28/16 05:00 BASIC METABOLIC PANEL,BMP [CHEM] Timed CBC WITH AUTO DIFF [HEME] Timed 08/29/16 19:30 VANCOMYCIN TROUGH [CHEM] Timed - Plan Plan:: ASSESSMENT AND PLAN RIGHT LUNG PNEUMONIA-recurrence, versus incomplete treatment. Hospitalized last week for pneumonia and treated with IV antibiotics, then transitioned to oral antibiotics. Within 24 hours of stopping oral antibiotics redeveloped respiratory symptoms and cough. Improved since admission with less shortness of breath and cough. -Saline lock IV -Supplemental oxygen -Blood and sputum cultures pending -IV antibiotic therapy with vancomycin, Rocephin, and levofloxacin HYPOXIC RESPIRATORY FAILURE-secondary to pneumonia -Oxygen as above -Consider BiPAP if he develops further respiratory compromise RECENT [id number] recent hospitalization and pneumonia. He was seen and evaluated at tertiary care Center and decision was made not to pursue angiogram. After evaluation and felt that he is not a candidate for further aggressive intervention or evaluation and should be treated with medications. -Continue outpatient medical regimen TYPE 2 DIABETES MELLITUS -Continue long-acting insulin -Low-dose sliding scale NovoLog -4 times a day glucometers PALLIATIVE CARE-he is currently DNR/DNI, decision has been made not to pursue aggressive management of his coronary artery disease. MAINTENANCE ISSUES -DVT prophylaxis; Lovenox 40 mg subcutaneous daily -GI prophylaxis; not indicated -Patel catheter; not indicated -Nutrition; 2 g sodium diabetic diet -Nicotine dependence; not required CODE STATUS-DNR/DNI ADMISSION STATUS-patient will be admitted to inpatient status, expect at least a 2 night hospital stay for evaluation and management of problems as outlined above. At the time of this admission I do not reasonably expected evaluation and management of this problem will require more than a 96 hour hospital stay. DISPOSITION-anticipate discharge to home after the hospital stay. PRIMARY CARE PROVIDER-Dr. Carrion
[2016-08-27] MEDS: RANOLAZINE 500 MG PO SCH ×3 (10:16→20:47)
[2016-08-27] MEDS: Aspirin 81 MG Tab.EC PO SCH (10:17)
[2016-08-27] MEDS: Tamsulosin 0.4 MG Cap.ER PO SCH (10:17)
[2016-08-27] MEDS: Isosorbide Mononitrate 30 MG Tab.ER PO SCH (10:18)
[2016-08-27] MEDS: methylPREDNISolone Sodium Succinate 40 MG/1 ML SDV IVPUSH SCH ×2 (10:23→18:01)
[2016-08-27] MEDS: cycloSPORINE Ophth Drops U/D Box of 30 EYELF SCH (10:23)
[2016-08-27] MEDS: Insulin Aspart 100 Units/ML 3 ML Pen SUBCUT PRN ×3 (13:06→21:04)
[2016-08-27] MEDS: Enoxaparin 40 MG/0.4 ML Syringe SUBCUT SCH (16:22)
[2016-08-27] MEDS: Carvedilol 6.25 MG Tab PO SCH (16:23)
[2016-08-27] MEDS: cefTRIAXone 2 GM in Sodium Chloride 0.9% 50 ML IV SCH (19:23)
[2016-08-27] MEDS: Melatonin 3 MG Tab PO SCH (20:46)
[2016-08-27] MEDS: Clopidogrel 75 MG Tab PO SCH (20:46)
[2016-08-27] MEDS ORDERED: Insulin Detemir 100 Units/ML 3 ML Pen SUBCUT SCH (21:00)
[2016-08-28] MEDS: methylPREDNISolone Sodium Succinate 40 MG/1 ML SDV IVPUSH SCH ×2 (01:54→11:07)
[2016-08-28] MEDS ORDERED: Insulin Aspart 100 Units/ML 3 ML Pen SUBCUT STA (06:11)
[2016-08-28] MEDS: Albuterol/Ipratropium 3.0-0.5 MG/3 ML Neb Soln NEB SCH ×4 (07:18→20:39)
[2016-08-28] MEDS: Tiotropium Inhaler 18 MCG Inhalation Powder Cap Kit of 5 INH SCH (08:03)
[2016-08-28] MEDS ORDERED: Insulin Aspart 100 Units/ML 3 ML Pen SUBCUT ONE ×3 (08:15→16:34)
[2016-08-28] MEDS: Isosorbide Mononitrate 30 MG Tab.ER PO SCH (08:42)
[2016-08-28] MEDS: Carvedilol 6.25 MG Tab PO SCH ×2 (08:42→16:40)
[2016-08-28] MEDS: Tamsulosin 0.4 MG Cap.ER PO SCH (08:42)
[2016-08-28] MEDS: RANOLAZINE 500 MG PO SCH ×2 (08:45→20:41)
[2016-08-28] MEDS: Aspirin 81 MG Tab.EC PO SCH (08:45)
[2016-08-28] MEDS: cycloSPORINE Ophth Drops U/D Box of 30 EYELF SCH (09:00)
[2016-08-28] MEDS ORDERED: Insulin Detemir 100 Units/ML 3 ML Pen SUBCUT SCH (12:06)
--- NOTE | 2016-08-28 12:11 | PCM.PN ---
- General Info Date of Service: 08/28/16 Functional Status: Reports: pain controlled, tolerating diet, ambulating - Review of Systems General: Reports: Weakness. Denies: Fever, Chills Pulmonary: Reports: shortness of breath, cough. Denies: pleuritic chest pain, sputum, hemoptysis, wheezing Cardiovascular: Reports: Dyspnea on Exertion, Edema. Denies: Chest Pain, Palpitations, Orthopnea, PND Gastrointestinal: Reports: No symptoms Systems Review Comment:: This patient has been stable over the past 24 hours, vital signs have been good and he has remained afebrile. Tolerating a regular diet and has been out walking in the halls. Respiratory status has been stable with adequate oxygenation and improvement in expiratory wheezes. - Patient Data Vitals - most recent: Last Vital Signs Temp 96.7 F 08/28/16 10:39 Pulse 70 08/28/16 11:20 Resp 16 08/28/16 10:39 BP 102/61 08/28/16 10:39 Pulse Ox 94 L 08/28/16 10:39 Weight - most recent: 169 lb 12.095 oz I&O - last 24 hours: Intake & Output 08/27/16 08/28/16 08/28/16 22:59 06:59 14:59 Intake Total 306 Output Total 250 600 Balance 56 -600 Lab Results last 24 hrs: Laboratory Results - last 24 hr 08/28/16 08/28/16 Range/Units 05:00 05:00 WBC 22.7 H (4.5-11.0) K/uL RBC 3.26 L (4.30-5.90) M/uL Hgb 10.2 L (12.0-15.0) g/dL Hct 31.0 L (40.0-54.0) % MCV 95 (80-98) fL MCH 31 (27-31) pg MCHC 33 (32-36) % Plt Count 411 H (150-400) K/uL Neut % (Auto) 93 H (36-66) % Lymph % (Auto) 4 L (24-44) % [place] % (Auto) 3 (2-6) % Eos % (Auto) 0 L (2-4) % Baso % (Auto) 0 (0-1) % Sodium 133 L (140-148) mmol/L Potassium 5.2 (3.6-5.2) mmol/L Chloride 100 (100-108) mmol/L Carbon Dioxide 25 (21-32) mmol/L Anion Gap 13.2 (5.0-14.0) mmol/L BUN 38 H D (7-18) mg/dL Creatinine 1.5 H (0.8-1.3) mg/dL Est Cr Clr Drug Dosing 39.21 mL/min Estimated GFR (MDRD) 44 L (>60) Glucose 488 H* (74-106) mg/dL Calcium 7.9 L (8.5-10.1) mg/dL Med Orders - Current: Current Medications Acetaminophen (Tylenol) 650 mg PO Q4H PRN PRN Reason: Pain (Mild 1-3)/fever Last Admin: 08/26/16 20:34 Dose: 650 mg Albuterol (Proventil Neb Soln) 2.5 mg NEB Q4H PRN PRN Reason: Shortness Of Breath/wheezing Albuterol/Ipratropium (Duoneb 3.0-0.5 Mg/3 Ml) 3 ml NEB QIDRT [facility] Last Admin: 08/28/16 11:18 Dose: 3 ml Aspirin (Halfprin) 81 mg PO DAILY [facility] Last Admin: 08/28/16 08:45 Dose: 81 mg Carvedilol (Coreg) 6.25 mg PO BIDMEALS [facility] Last Admin: 08/28/16 08:42 Dose: 6.25 mg Clopidogrel Bisulfate (Plavix) 75 mg PO BEDTIME [facility] Last Admin: 08/27/16 20:46 Dose: 75 mg Cyclosporine (Restasis) 0 each EYELF DAILY [facility] Last Admin: 08/28/16 09:00 Dose: Not Given Dextrose (Glutose 15) 15 gm PO ONETIME PRN PRN Reason: Hypoglycemia Dextrose/Water (Dextrose 50% In Water) 50 ml IV ONETIME PRN PRN Reason: Hypoglycemia Docusate Sodium (Colace) 100 mg PO BID PRN PRN Reason: Constipation Enoxaparin Sodium (Lovenox) 40 mg SUBCUT Q24H [facility] Last Admin: 08/27/16 16:22 Dose: 40 mg Ceftriaxone Sodium 2 gm/ (Sodium Chloride) 50 mls @ 100 mls/hr IV Q24H [facility] Last Admin: 08/27/16 19:23 Dose: 100 mls/hr Vancomycin HCl 1.25 gm/ Sodium (Chloride) 250 mls @ 166.667 mls/hr IV Q24H [facility] Last Admin: 08/27/16 19:24 Dose: 166.667 mls/hr Insulin Aspart (Novolog) 0 unit SUBCUT ASDIRECTED [facility] PRN Reason: Protocol Insulin Detemir (Levemir) 20 unit SUBCUT BEDTIME [facility] Isosorbide Mononitrate (Imdur) 120 mg PO DAILY [facility] Last Admin: 08/28/16 08:42 Dose: 120 mg Magnesium Hydroxide (Milk Of Magnesia) 30 ml PO Q12H PRN PRN Reason: Constipation Melatonin (Melatonin) 9 mg PO BEDTIME [facility] Last Admin: 08/27/16 20:46 Dose: 9 mg Nitroglycerin (Nitrostat) 0.4 mg SL ASDIRECTED PRN PRN Reason: CHEST DISCOMFORT Ondansetron HCl (Zofran) 4 mg IV Q4H PRN PRN Reason: Nausea/Vomiting Oxycodone HCl (Oxycodone) 5 mg PO Q4H PRN PRN Reason: Pain (moderate 4-6) (Ranolazine [Ranexa] (500 Mg)Pom) 0 each PO BID [facility] Last Admin: 08/28/16 08:45 Dose: 1 each Polyethylene Glycol (Miralax) 17 gm PO DAILY PRN PRN Reason: Constipation Rosuvastatin Calcium (Crestor) 5 mg PO [id number]@2100 [facility] Sodium Chloride (Saline Flush) 10 ml FLUSH ASDIRECTED PRN PRN Reason: Keep Vein Open Tamsulosin HCl (Flomax) 0.4 mg PO DAILY [facility] Last Admin: 08/28/16 08:42 Dose: 0.4 mg Tiotropium [place] (Spiriva Handihaler) 18 mcg INH DAILY [facility] Last Admin: 08/28/16 08:03 Dose: 18 mcg Discontinued Medications Carvedilol (Coreg) 6.25 mg PO BID [facility] Last Admin: 08/26/16 20:34 Dose: 6.25 mg Enoxaparin Sodium (Lovenox) 40 mg SUBCUT DAILY [facility] Last Admin: 08/26/16 18:38 Dose: 40 mg Enoxaparin Sodium (Lovenox) 40 mg SUBCUT Q24H [facility] Levofloxacin/Dextrose 750 mg/ (Premix) 150 mls @ 100 mls/hr IV Q48H [facility] Last Admin: 08/26/16 18:02 Dose: 100 mls/hr Sodium Chloride (Normal Saline) 1,000 mls @ 125 mls/hr IV ASDIRECTED [facility] Last Admin: 08/27/16 05:35 Dose: 125 mls/hr Sodium Chloride (Normal Saline) Confirm Administered Dose 250 mls @ as directed .ROUTE .STK-MED ONE Stop: 08/26/16 20:58 Last Admin: 08/26/16 21:04 Dose: Not Given Insulin Aspart (Novolog) 0 unit SUBCUT ASDIRECTED PRN; Protocol PRN Reason: PER SLIDING SCALE Last Admin: 08/27/16 21:04 Dose: 8 units Insulin Aspart (Novolog) 0 unit SUBCUT ONETIME STA Stop: 08/28/16 06:12 Last Admin: 08/28/16 06:27 Dose: 12 unit Insulin Aspart (Novolog) 12 unit SUBCUT ONETIME ONE Stop: 08/28/16 08:16 Last Admin: 08/28/16 08:44 Dose: 12 units Insulin Detemir (Levemir) 15 unit SUBCUT BEDTIME [facility] Last Admin: 08/26/16 20:42 Dose: 15 unit Insulin Detemir (Levemir) 15 unit SUBCUT BEDTIME [facility] Last Admin: 08/27/16 20:44 Dose: 15 units Methylprednisolone Sodium Succinate (Solu-Medrol) 40 mg IVPUSH Q8H [facility] Last Admin: 08/28/16 11:07 Dose: 40 mg Sodium Chloride (Saline Flush) 10 ml FLUSH ASDIRECTED PRN PRN Reason: Keep Vein Open Last Admin: 08/26/16 14:27 Dose: 10 ml Vancomycin HCl (Vancomycin) 1 gm IV ASDIRECTED ONE Stop: 08/26/16 17:36 Last Admin: 08/27/16 11:09 Dose: Not Given - Exam Quality Assessment: urine catheter, DVT prophylaxis General: alert, cooperative, no acute distress Lungs: Clear to auscultation, Normal respiratory effort, Decreased breath sounds. No: Crackles, Rales, Rhonchi, Wheezing Cardiovascular: Regular Rate, Regular Rhythm, No Murmurs Abdomen: bowel sounds present, soft, no tenderness, no distension Extremities: edema Skin: warm, dry, intact - Problem List Review Problem List Initiated/Reviewed/Updated: Yes - My Orders Last 24 Hours: My Active Orders 08/27/16 17:00 Carvedilol [Coreg] 6.25 mg PO BIDMEALS Enoxaparin [Lovenox] 40 mg SUBCUT Q24H 08/27/16 23:30 Insert Patel Catheter [Insert Urinary Catheter] [OM.PC] Q24H 08/28/16 12:06 Insulin Detemir [Levemir] 20 unit SUBCUT BEDTIME 08/28/16 12:15 Insulin Aspart [NovoLOG] See Protocol SUBCUT ASDIRECTED 08/28/16 16:30 GLUCOSE POC LAB TO COLLECT [POC] QIDACANDBED 08/28/16 21:00 GLUCOSE POC LAB TO COLLECT [POC] QIDACANDBED 08/29/16 05:00 BASIC METABOLIC PANEL,BMP [CHEM] Timed CBC WITH AUTO DIFF [HEME] Timed 08/29/16 07:30 GLUCOSE POC LAB TO COLLECT [POC] QIDACANDBED 08/29/16 11:30 GLUCOSE POC LAB TO COLLECT [POC] QIDACANDBED 08/29/16 16:30 GLUCOSE POC LAB TO COLLECT [POC] QIDACANDBED 08/29/16 19:30 VANCOMYCIN TROUGH [CHEM] Timed 08/29/16 21:00 GLUCOSE POC LAB TO COLLECT [POC] QIDACANDBED 08/30/16 07:30 GLUCOSE POC LAB TO COLLECT [POC] QIDACANDBED 08/30/16 11:30 GLUCOSE POC LAB TO COLLECT [POC] QIDACANDBED 08/30/16 16:30 GLUCOSE POC LAB TO COLLECT [POC] QIDACANDBED 08/30/16 21:00 GLUCOSE POC LAB TO COLLECT [POC] QIDACANDBED 08/31/16 07:30 GLUCOSE POC LAB TO COLLECT [POC] QIDACANDBED 08/31/16 11:30 GLUCOSE POC LAB TO COLLECT [POC] QIDACANDBED 08/31/16 16:30 GLUCOSE POC LAB TO COLLECT [POC] QIDACANDBED 08/31/16 21:00 GLUCOSE POC LAB TO COLLECT [POC] QIDACANDBED 09/01/16 07:30 GLUCOSE POC LAB TO COLLECT [POC] QIDACANDBED 09/01/16 11:30 GLUCOSE POC LAB TO COLLECT [POC] QIDACANDBED 09/01/16 16:30 GLUCOSE POC LAB TO COLLECT [POC] QIDACANDBED 09/01/16 21:00 GLUCOSE POC LAB TO COLLECT [POC] QIDACANDBED - Plan Plan:: ASSESSMENT AND PLAN RIGHT LUNG PNEUMONIA-recurrence, versus incomplete treatment. Hospitalized last week for pneumonia and treated with IV antibiotics, then transitioned to oral antibiotics. Within 24 hours of stopping oral antibiotics redeveloped respiratory symptoms and cough. Ongoing improvement since admission. -Saline lock IV -Supplemental oxygen -Blood and sputum cultures pending -IV antibiotic therapy with vancomycin, Rocephin, and levofloxacin HYPOXIC RESPIRATORY FAILURE-secondary to pneumonia. Currently on room air with adequate oxygenation -Oxygen as above RECENT ATI-QRABN-[id number] recent hospitalization and pneumonia. He was seen and evaluated at tertiary care Center and decision was made not to pursue angiogram. After evaluation and felt that he is not a candidate for further aggressive intervention or evaluation and should be treated with medications. -Continue outpatient medical regimen TYPE 2 DIABETES MELLITUS -Continue long-acting insulin -Low-dose sliding scale NovoLog -4 times a day glucometers URINARY RETENTION-likely secondary to BPH, he was unable to urinate after admission and on evaluation found to have significant retained urine. After Patel catheter was placed he had 3 L out in a very short period of time. -We'll need to leave catheter in at the time of discharge -Outpatient followup with urology -Continue current therapy with [facility] PALLIATIVE CARE-he is currently DNR/DNI, decision has been made not to pursue aggressive management of his coronary artery disease. MAINTENANCE ISSUES -DVT prophylaxis; Lovenox 40 mg subcutaneous daily -GI prophylaxis; not indicated -Patel catheter; not indicated -Nutrition; 2 g sodium diabetic diet -Nicotine dependence; not required CODE STATUS-DNR/DNI ADMISSION STATUS-patient will be admitted to inpatient status, expect at least a 2 night hospital stay for evaluation and management of problems as outlined above. At the time of this admission I do not reasonably expected evaluation and management of this problem will require more than a 96 hour hospital stay. DISPOSITION-anticipate discharge to home after the hospital stay. PRIMARY CARE PROVIDER-Dr. Carrion
[2016-08-28] MEDS: Enoxaparin 40 MG/0.4 ML Syringe SUBCUT SCH (16:40)
[2016-08-28] MEDS: cefTRIAXone 2 GM in Sodium Chloride 0.9% 50 ML IV SCH (20:34)
[2016-08-28] MEDS: guaiFENesin/Dextromethorphan 100-10 MG/5 ML Soln 10 ML Cup PO PRN (20:39)
[2016-08-28] MEDS: Melatonin 3 MG Tab PO SCH (20:40)
[2016-08-28] MEDS: Clopidogrel 75 MG Tab PO SCH (20:42)
[2016-08-28] MEDS: Insulin Aspart 100 Units/ML 3 ML Pen SUBCUT SCH (20:47)
[2016-08-28] MEDS ORDERED: Rosuvastatin 10 MG Tab PO SCH (21:00)
[2016-08-29] MEDS: guaiFENesin/Dextromethorphan 100-10 MG/5 ML Soln 10 ML Cup PO PRN (03:28)
[2016-08-29] MEDS: Albuterol/Ipratropium 3.0-0.5 MG/3 ML Neb Soln NEB SCH ×4 (07:43→21:06)
[2016-08-29] MEDS: Tiotropium Inhaler 18 MCG Inhalation Powder Cap Kit of 5 INH SCH (08:09)
[2016-08-29] MEDS: Carvedilol 6.25 MG Tab PO SCH ×2 (08:50→17:06)
[2016-08-29] MEDS: Aspirin 81 MG Tab.EC PO SCH (08:51)
[2016-08-29] MEDS: Tamsulosin 0.4 MG Cap.ER PO SCH (08:51)
[2016-08-29] MEDS: RANOLAZINE 500 MG PO SCH ×2 (08:51→21:07)
[2016-08-29] MEDS: Insulin Aspart 100 Units/ML 3 ML Pen SUBCUT SCH ×4 (08:52→21:13)
[2016-08-29] MEDS: Isosorbide Mononitrate 30 MG Tab.ER PO SCH (08:58)
[2016-08-29] MEDS: cycloSPORINE Ophth Drops U/D Box of 30 EYELF SCH (08:59)
--- NOTE | 2016-08-29 10:37 | CR ---
Heart size stable. Sternotomy. Worsening patchy opacities within the upper lobes right greater than left compared to 08/17/16. Findings again are suspicious for infection.. Recommend close radiographic follow-up.
[2016-08-29] MEDS ORDERED: Furosemide 40 MG/4 ML VIAL IVPUSH ONE (14:00)
[2016-08-29] MEDS: Cefdinir 300 MG Cap PO SCH ×2 (16:26→21:06)
[2016-08-29] MEDS: Doxycycline 100 MG Cap PO SCH ×2 (16:26→21:07)
[2016-08-29] MEDS: Enoxaparin 40 MG/0.4 ML Syringe SUBCUT SCH (17:05)
[2016-08-29] MEDS ORDERED: Insulin Detemir 100 Units/ML 3 ML Pen SUBCUT SCH (18:07)
--- NOTE | 2016-08-29 18:52 | PCM.PN ---
- General Info Date of Service: 08/29/16 Functional Status: Reports: tolerating diet, ambulating. Denies: urinating - Review of Systems General: Reports: Weakness. Denies: Fever, Chills Pulmonary: Reports: shortness of breath, cough. Denies: pleuritic chest pain, sputum, hemoptysis, wheezing Cardiovascular: Reports: Dyspnea on Exertion. Denies: Chest Pain, Palpitations , Orthopnea, PND, Edema Gastrointestinal: Reports: No symptoms Systems Review Comment:: This patient continues to feel well, appetite has returned and overall strength is improved. He has been up and walking in the halls several times a day. Vital signs have been stable and he has remained afebrile. - Patient Data Vitals - most recent: Last Vital Signs Temp 98.6 F 08/29/16 14:59 Pulse 74 08/29/16 17:06 Resp 20 08/29/16 15:45 BP 134/80 08/29/16 17:06 Pulse Ox 96 08/29/16 15:45 Weight - most recent: 169 lb 12.095 oz I&O - last 24 hours: Intake & Output 08/29/16 08/29/16 08/29/16 06:59 14:59 22:59 Intake Total 240 820 Output Total 5798 888 7454 Balance -1210 320 -2350 Lab Results last 24 hrs: Laboratory Results - last 24 hr 08/29/16 08/29/16 Range/Units 05:00 05:00 WBC 27.7 H (4.5-11.0) K/uL RBC 3.02 L (4.30-5.90) M/uL Hgb 9.5 L (12.0-15.0) g/dL Hct 28.4 L (40.0-54.0) % MCV 94 (80-98) fL MCH 32 H (27-31) pg MCHC 34 (32-36) % Plt Count 426 H (150-400) K/uL Neut % (Auto) 90 H (36-66) % Lymph % (Auto) 4 L (24-44) % [place] % (Auto) 5 (2-6) % Eos % (Auto) 0 L (2-4) % Baso % (Auto) 0 (0-1) % Sodium 136 L (140-148) mmol/L Potassium 4.6 (3.6-5.2) mmol/L Chloride 104 (100-108) mmol/L Carbon Dioxide 26 (21-32) mmol/L Anion Gap 10.6 (5.0-14.0) mmol/L BUN 37 H (7-18) mg/dL Creatinine 1.2 (0.8-1.3) mg/dL Est Cr Clr Drug Dosing 49.02 mL/min Estimated GFR (MDRD) 58 L (>60) Glucose 235 H (74-106) mg/dL Calcium 7.8 L (8.5-10.1) mg/dL Med Orders - Current: Current Medications Acetaminophen (Tylenol) 650 mg PO Q4H PRN PRN Reason: Pain (Mild 1-3)/fever Last Admin: 08/26/16 20:34 Dose: 650 mg Albuterol (Proventil Neb Soln) 2.5 mg NEB Q4H PRN PRN Reason: Shortness Of Breath/wheezing Albuterol/Ipratropium (Duoneb 3.0-0.5 Mg/3 Ml) 3 ml NEB QIDRT [facility] Last Admin: 08/29/16 14:34 Dose: 3 ml Aspirin (Halfprin) 81 mg PO DAILY [facility] Last Admin: 08/29/16 08:51 Dose: 81 mg Carvedilol (Coreg) 6.25 mg PO BIDMEALS [facility] Last Admin: 08/29/16 17:06 Dose: 6.25 mg Cefdinir (Omnicef) 300 mg PO BID [facility] Last Admin: 08/29/16 16:26 Dose: 300 mg Clopidogrel Bisulfate (Plavix) 75 mg PO BEDTIME [facility] Last Admin: 08/28/16 20:42 Dose: 75 mg Cyclosporine (Restasis) 0 each EYELF DAILY [facility] Last Admin: 08/29/16 08:59 Dose: Not Given Dextrose (Glutose 15) 15 gm PO ONETIME PRN PRN Reason: Hypoglycemia Dextrose/Water (Dextrose 50% In Water) 50 ml IV ONETIME PRN PRN Reason: Hypoglycemia Docusate Sodium (Colace) 100 mg PO BID PRN PRN Reason: Constipation Doxycycline Hyclate (Vibramycin) 100 mg PO BID [facility] Last Admin: 08/29/16 16:26 Dose: 100 mg Enoxaparin Sodium (Lovenox) 40 mg SUBCUT Q24H [facility] Last Admin: 08/29/16 17:05 Dose: 40 mg Furosemide (Lasix) 40 mg IVPUSH NOW ONE Stop: 08/30/16 07:01 Guaifenesin/Dextromethorphan (Robitussin Dm) 10 ml PO Q4H PRN PRN Reason: Cough Last Admin: 08/29/16 03:28 Dose: 10 ml Insulin Aspart (Novolog) 0 unit SUBCUT ASDIRECTED [facility] PRN Reason: Protocol Last Admin: 08/29/16 16:35 Dose: 8 unit Insulin Detemir (Levemir) 26 unit SUBCUT BEDTIME [facility] Isosorbide Mononitrate (Imdur) 120 mg PO DAILY [facility] Last Admin: 08/29/16 08:58 Dose: 120 mg Magnesium Hydroxide (Milk Of Magnesia) 30 ml PO Q12H PRN PRN Reason: Constipation Melatonin (Melatonin) 9 mg PO BEDTIME [facility] Last Admin: 08/28/16 20:40 Dose: 9 mg Nitroglycerin (Nitrostat) 0.4 mg SL ASDIRECTED PRN PRN Reason: CHEST DISCOMFORT Ondansetron HCl (Zofran) 4 mg IV Q4H PRN PRN Reason: Nausea/Vomiting Oxycodone HCl (Oxycodone) 5 mg PO Q4H PRN PRN Reason: Pain (moderate 4-6) (Ranolazine [Ranexa] (500 Mg)Pom) 0 each PO BID [facility] Last Admin: 08/29/16 08:51 Dose: 1 each Polyethylene Glycol (Miralax) 17 gm PO DAILY PRN PRN Reason: Constipation Rosuvastatin Calcium (Crestor) 5 mg PO MoWeFr@2100 [facility] Last Admin: 08/28/16 20:41 Dose: 5 mg Sodium Chloride (Saline Flush) 10 ml FLUSH ASDIRECTED PRN PRN Reason: Keep Vein Open Tamsulosin HCl (Flomax) 0.4 mg PO DAILY [facility] Last Admin: 08/29/16 08:51 Dose: 0.4 mg Tiotropium Glenvil (Spiriva Handihaler) 18 mcg INH DAILY [facility] Last Admin: 08/29/16 08:09 Dose: 18 mcg Discontinued Medications Carvedilol (Coreg) 6.25 mg PO BID [facility] Last Admin: 08/26/16 20:34 Dose: 6.25 mg Enoxaparin Sodium (Lovenox) 40 mg SUBCUT DAILY [facility] Last Admin: 08/26/16 18:38 Dose: 40 mg Enoxaparin Sodium (Lovenox) 40 mg SUBCUT Q24H [facility] Furosemide (Lasix) 40 mg IVPUSH NOW ONE Stop: 08/29/16 14:01 Last Admin: 08/29/16 13:53 Dose: 40 mg Levofloxacin/Dextrose 750 mg/ (Premix) 150 mls @ 100 mls/hr IV Q48H [facility] Last Admin: 08/26/16 18:02 Dose: 100 mls/hr Sodium Chloride (Normal Saline) 1,000 mls @ 125 mls/hr IV ASDIRECTED [facility] Last Admin: 08/27/16 05:35 Dose: 125 mls/hr Ceftriaxone Sodium 2 gm/ (Sodium Chloride) 50 mls @ 100 mls/hr IV Q24H [facility] Last Admin: 08/28/16 20:34 Dose: 100 mls/hr Vancomycin HCl 1.25 gm/ Sodium (Chloride) 250 mls @ 166.667 mls/hr IV Q24H [facility] Last Admin: 08/28/16 20:49 Dose: 166.667 mls/hr Sodium Chloride (Normal Saline) Confirm Administered Dose 250 mls @ as directed .ROUTE .STK-MED ONE Stop: 08/26/16 20:58 Last Admin: 08/26/16 21:04 Dose: Not Given Insulin Aspart (Novolog) 0 unit SUBCUT ASDIRECTED PRN; Protocol PRN Reason: PER SLIDING SCALE Last Admin: 08/27/16 21:04 Dose: 8 units Insulin Aspart (Novolog) 0 unit SUBCUT ONETIME STA Stop: 08/28/16 06:12 Last Admin: 08/28/16 06:27 Dose: 12 unit Insulin Aspart (Novolog) 12 unit SUBCUT ONETIME ONE Stop: 08/28/16 08:16 Last Admin: 08/28/16 08:44 Dose: 12 units Insulin Aspart (Novolog) 12 unit SUBCUT ONETIME ONE Stop: 08/28/16 13:11 Last Admin: 08/28/16 13:01 Dose: 12 units Insulin Aspart (Novolog) 14 unit SUBCUT ONETIME ONE Stop: 08/28/16 16:35 Last Admin: 08/28/16 16:46 Dose: 14 units Insulin Detemir (Levemir) 15 unit SUBCUT BEDTIME [facility] Last Admin: 08/26/16 20:42 Dose: 15 unit Insulin Detemir (Levemir) 15 unit SUBCUT BEDTIME [facility] Last Admin: 08/27/16 20:44 Dose: 15 units Insulin Detemir (Levemir) 20 unit SUBCUT BEDTIME [facility] Last Admin: 08/28/16 20:49 Dose: 20 units Methylprednisolone Sodium Succinate (Solu-Medrol) 40 mg IVPUSH Q8H [facility] Last Admin: 08/28/16 11:07 Dose: 40 mg Sodium Chloride (Saline Flush) 10 ml FLUSH ASDIRECTED PRN PRN Reason: Keep Vein Open Last Admin: 08/26/16 14:27 Dose: 10 ml Vancomycin HCl (Vancomycin) 1 gm IV ASDIRECTED ONE Stop: 08/26/16 17:36 Last Admin: 08/27/16 11:09 Dose: Not Given - Exam Quality Assessment: urine catheter, DVT prophylaxis General: alert, cooperative, no acute distress Lungs: Clear to auscultation, Normal respiratory effort Cardiovascular: Regular Rate, No Murmurs, Irregular Rhythm. No: Bradycardia, Tachycardia Abdomen: bowel sounds present, soft, no tenderness, no distension Extremities: edema Skin: warm, dry, intact - Problem List Review Problem List Initiated/Reviewed/Updated: Yes - My Orders Last 24 Hours: My Active Orders 08/29/16 14:00 Cefdinir [Omnicef] 300 mg PO BID Doxycycline [Vibramycin] 100 mg PO BID 08/29/16 16:38 Overnight Pulse Oximetry [RC] Click to Edit Pulse Oximetry Continuous Monitoring [OM.PC] Routine 08/29/16 18:07 Insulin Detemir [Levemir] 26 unit SUBCUT BEDTIME 08/29/16 21:00 GLUCOSE POC LAB TO COLLECT [POC] QIDACANDBED 08/30/16 05:00 BASIC METABOLIC PANEL,BMP [CHEM] Timed CBC WITH AUTO DIFF [HEME] Timed 08/30/16 07:00 Furosemide [Lasix] 40 mg IVPUSH NOW ONE 08/30/16 07:30 GLUCOSE POC LAB TO COLLECT [POC] QIDACANDBED 08/30/16 11:30 GLUCOSE POC LAB TO COLLECT [POC] QIDACANDBED 08/30/16 16:30 GLUCOSE POC LAB TO COLLECT [POC] QIDACANDBED 08/30/16 21:00 GLUCOSE POC LAB TO COLLECT [POC] QIDACANDBED 08/31/16 07:30 GLUCOSE POC LAB TO COLLECT [POC] QIDACANDBED 08/31/16 11:30 GLUCOSE POC LAB TO COLLECT [POC] QIDACANDBED 08/31/16 16:30 GLUCOSE POC LAB TO COLLECT [POC] QIDACANDBED 08/31/16 21:00 GLUCOSE POC LAB TO COLLECT [POC] QIDACANDBED 09/01/16 07:30 GLUCOSE POC LAB TO COLLECT [POC] QIDACANDBED 09/01/16 11:30 GLUCOSE POC LAB TO COLLECT [POC] QIDACANDBED 09/01/16 16:30 GLUCOSE POC LAB TO COLLECT [POC] QIDACANDBED 09/01/16 21:00 GLUCOSE POC LAB TO COLLECT [POC] QIDACANDBED - Plan Plan:: ASSESSMENT AND PLAN RIGHT LUNG PNEUMONIA-recurrence, versus incomplete treatment. Hospitalized last week for pneumonia and treated with IV antibiotics, then transitioned to oral antibiotics. Within 24 hours of stopping oral antibiotics redeveloped respiratory symptoms and cough. Ongoing improvement since admission. -Saline lock IV -Supplemental oxygen -Blood and sputum cultures pending -Discontinue IV antibiotics -Start oral antibiotic therapy with Omnicef and doxycycline HYPOXIC RESPIRATORY FAILURE-secondary to pneumonia. Currently on room air with adequate oxygenation -Oxygen as above RECENT LPR-MSOBI-ecrbiyriambi recent hospitalization and pneumonia. He was seen and evaluated at tertiary care Center and decision was made not to pursue angiogram. After evaluation and felt that he is not a candidate for further aggressive intervention or evaluation and should be treated with medications. -Continue outpatient medical regimen TYPE 2 DIABETES MELLITUS -Continue long-acting insulin -Low-dose sliding scale NovoLog -4 times a day glucometers URINARY RETENTION-likely secondary to BPH, he was unable to urinate after admission and on evaluation found to have significant retained urine. After Patel catheter was placed he had 3 L out in a very short period of time. -We'll need to leave catheter in at the time of discharge -Outpatient followup with urology -Continue current therapy with Flomax PALLIATIVE CARE-he is currently DNR/DNI, decision has been made not to pursue aggressive management of his coronary artery disease. MAINTENANCE ISSUES -DVT prophylaxis; Lovenox 40 mg subcutaneous daily -GI prophylaxis; not indicated -Patel catheter; not indicated -Nutrition; 2 g sodium diabetic diet -Nicotine dependence; not required CODE STATUS-DNR/DNI ADMISSION STATUS-patient will be admitted to inpatient status, expect at least a 2 night hospital stay for evaluation and management of problems as outlined above. At the time of this admission I do not reasonably expected evaluation and management of this problem will require more than a 96 hour hospital stay. DISPOSITION-anticipate discharge to home tomorrow PRIMARY CARE PROVIDER-Dr. Carrion
[2016-08-29] MEDS: Melatonin 3 MG Tab PO SCH (21:06)
[2016-08-29] MEDS: Clopidogrel 75 MG Tab PO SCH (21:07)
[2016-08-30] MEDS ORDERED: Furosemide 40 MG/4 ML VIAL IVPUSH ONE (07:00)
[2016-08-30] MEDS: Albuterol/Ipratropium 3.0-0.5 MG/3 ML Neb Soln NEB SCH ×2 (07:22→10:44)
[2016-08-30] MEDS: Tiotropium Inhaler 18 MCG Inhalation Powder Cap Kit of 5 INH SCH (08:11)
[2016-08-30 08:15] VITALS: BP 110/66
[2016-08-30] MEDS: Isosorbide Mononitrate 30 MG Tab.ER PO SCH (08:19)
[2016-08-30] MEDS: Tamsulosin 0.4 MG Cap.ER PO SCH (08:19)
[2016-08-30] MEDS: Carvedilol 6.25 MG Tab PO SCH (08:19)
[2016-08-30] MEDS: Aspirin 81 MG Tab.EC PO SCH (08:19)
[2016-08-30] MEDS: Cefdinir 300 MG Cap PO SCH (08:20)
[2016-08-30] MEDS: RANOLAZINE 500 MG PO SCH (08:20)
[2016-08-30] MEDS: Doxycycline 100 MG Cap PO SCH (08:21)
[2016-08-30] MEDS: cycloSPORINE Ophth Drops U/D Box of 30 EYELF SCH (08:21)
[2016-08-30] MEDS: Insulin Aspart 100 Units/ML 3 ML Pen SUBCUT SCH (11:52)
--- NOTE | 2016-08-30 12:27 | PCM.DCSUM1 ---
Discharge Summary - Hospital Course Brief History: Mr. Bui is an 86-year-old gentleman who is admitted through the emergency department with weakness and increased confusion secondary to recurrent right lung pneumonia. - Discharge Data Discharge Date: 08/30/16 Discharge Disposition: Home, W Home Health Agency 06 Condition: Fair - Discharge Diagnosis/Problem(s) (1) Urinary retention with incomplete bladder emptying SNOMED Code(s): 807172430 ICD Code: R33.9 - RETENTION OF URINE, UNSPECIFIED Status: Acute Current Visit: Yes (2) Pneumonia SNOMED Code(s): 762934521 ICD Code: J18.9 - PNEUMONIA, UNSPECIFIED ORGANISM Status: Acute Priority : High Current Visit: Yes Qualifiers: Pneumonia type: due to unspecified organism Laterality: bilateral Lung location: unspecified part of lung Qualified Code(s): J18.9 - Pneumonia, unspecified organism (3) Diabetes type 2, uncontrolled SNOMED Code(s): 85913794, 092711447 ICD Code: E11.65 - TYPE 2 DIABETES MELLITUS WITH HYPERGLYCEMIA Status: Chronic Priority: High Current Visit: No Qualifiers: Diabetes mellitus complication status: without complication Diabetes mellitus exterminator helper insulin use: with prison use Qualified Code(s): E11.65 - Type 2 diabetes mellitus with hyperglycemia; Z79.4 - exterminator helper (current) use of insulin (4) Dementia SNOMED Code(s): 42827680 ICD Code: F03.90 - UNSPECIFIED DEMENTIA WITHOUT BEHAVIORAL DISTURBANCE Status: Chronic Priority: High Current Visit: No Qualifiers: Dementia type: Alzheimer's disease Alzheimer's disease onset: unspecified onset Dementia behavioral disturbance: without behavioral disturbance Qualified Code(s): G30.9 - Alzheimer's disease, unspecified; F02.80 - Dementia in other diseases classified elsewhere without behavioral disturbance - Patient Summary/Data Hospital Course: Mr. Bui is an 86-year-old gentleman who was admitted through the emergency department with weakness, shortness of breath, cough, hypoxia, secondary to right lung pneumonia. He had been hospitalized at this facility a week and a half prior to admission with a right lung pneumonia. Shortly after admission for that hospitalization he was found to have significant elevation in troponin level and was transferred to [facility] for further cardiac evaluation. He was discharged from that facility on oral antibiotic therapy with levofloxacin. Initially did well after returning home but then for a few days prior to this admission developed cough shortness of breath and weakness. On evaluation emergency room department he was noted to have an increase in his right lung pneumonia. As well as significant elevation in white blood cell count and hypoxia. Blood cultures and sputum cultures were obtained at the time of admission and remained negative throughout his hospital stay. Because of the hypoxia he was admitted to the intensive care unit for more close observation and monitoring. He was started on broad-spectrum IV antibiotic therapy with vancomycin, levofloxacin, and Zosyn. He improved significantly with this regimen and respiratory status was close to baseline by the time of discharge. He will be discharged home on oral antibiotic therapy with Omnicef and doxycycline. Glucose levels were monitored throughout his hospital stay because of his known history of type 2 diabetes mellitus. Levels were elevated likely secondary glucocorticoid therapy and it's insulins doses were increased during hospitalization. We will go back to his usual insula dosing at the time of discharge. He also was found to have significant urinary retention and a Patel catheter was placed. He has a history of previous urinary retention. And is currently treated with Flomax. Catheter will remain in place until he's able to see urology for a followup appointment in the clinic. Followup appointment will be scheduled with his primary care provider Dr. Santamaria within one week and a chest x-ray will be obtained at that time. Activity will be as tolerated and he will resume his usual diet. He did have significant peripheral edema during hospitalization and was placed on IV diuretic therapy which worked well for improvement in his edema, it was not totally resolved at the time of discharge. On discharge he will be placed on furosemide 20 mg by mouth daily until his edema has resolved and then we'll stop the furosemide and only use it as needed after that. - Patient Instructions Diet: Usual Diet as Tolerated Activity: As Tolerated Other/Special Instructions: Please schedule outpatient appointment with urology for management of bladder outlet obstruction and indwelling Patel catheter. Please schedule followup appointment with Dr. Carrion within one week. Please schedule a a chest x-ray at the time of followup appointment - Discharge Plan Prescriptions/Med Rec: Cefdinir [IJD: Cefdinir] 300 mg PO BID #14 capsule Doxycycline Calcium [IMW: Doxycycline] 100 mg PO BID #14 capsule Home Medications: Home Meds Aspirin [Adult Low Dose Aspirin EC] 81 mg PO DAILY 08/29/13 [History] Carvedilol [Coreg] 6.25 mg PO BID 08/29/13 [History] Insulin Aspart [NovoLOG] 0 - 4 unit SQ ASDIRECTED 08/29/13 [History] Insulin Glarg,Human.Rec.Analog [Lantus] 15 unit SQ BEDTIME 08/29/13 [History] Isosorbide Mononitrate [Imdur] 120 mg PO DAILY 08/29/13 [History] Multivitamin [Multivitamins] 1 tab PO DAILY 08/29/13 [History] Tamsulosin [Flomax] 0.4 mg PO DAILY 08/29/13 [History] Tiotropium [Spiriva HandiHaler] 1 cap INH DAILY 08/29/13 [History] cycloSPORINE [Restasis] 1 each OP ASDIRECTED 08/29/13 [History] Nitroglycerin [Nitrostat] 0.4 mg SL ASDIRECTED 08/17/16 [History] Ranolazine [Ranexa] 500 mg PO BID 08/17/16 [History] Rosuvastatin Calcium 5 mg PO ASDIRECTED 08/17/16 [History] Benzonatate 200 mg PO TID 08/26/16 [History] Clopidogrel [Plavix] 75 mg PO BEDTIME 08/26/16 [History] Gluc/Jude-Msm#1/Vit C/Maxi/Bor [Bhidsnh-Gptlh-CMR Complex Cplt] 1 each PO DAILY 08/26/16 [History] Cefdinir [IJD: Cefdinir] 300 mg PO BID #14 capsule 08/30/16 [Rx] Doxycycline Calcium [IMW: Doxycycline] 100 mg PO BID #14 capsule 08/30/16 [Rx] Referrals: Jh Carrion MD [Primary Care Provider] - - Patient Data Vitals - Most Recent: Last Vital Signs Temp 96 F 08/30/16 08:12 Pulse 70 08/30/16 08:19 Resp 18 08/30/16 08:12 BP 110/66 08/30/16 08:19 Pulse Ox 92 L 08/30/16 08:12 Weight - Most Recent: 169 lb 12.095 oz I&O - Last 24 hours: Intake & Output 08/29/16 08/30/16 08/30/16 22:59 06:59 14:59 Intake Total 500 400 Output Total 3100 1250 2000 Balance -3100 -750 -1600 Lab Results - Last 24 hrs: Laboratory Results - last 24 hr 08/30/16 08/30/16 Range/Units 05:55 05:55 WBC 14.4 H (4.5-11.0) K/uL RBC 3.37 L (4.30-5.90) M/uL Hgb 10.4 L (12.0-15.0) g/dL Hct 31.8 L (40.0-54.0) % MCV 94 (80-98) fL MCH 31 (27-31) pg MCHC 33 (32-36) % Plt Count 458 H (150-400) K/uL Add Manual Diff Yes Neutrophils % (Manual) 74 H (36-66) % Band Neutrophils % 6 (5-11) % Lymphocytes % (Manual) 12 L (24-44) % Monocytes % (Manual) 7 H (2-6) % Eosinophils % (Manual) 1 L (2-4) % Sodium 140 (140-148) mmol/L Potassium 3.9 (3.6-5.2) mmol/L Chloride 104 (100-108) mmol/L Carbon Dioxide 31 (21-32) mmol/L Anion Gap 4.9 L (5.0-14.0) mmol/L BUN 38 H (7-18) mg/dL Creatinine 1.3 (0.8-1.3) mg/dL Est Cr Clr Drug Dosing 45.25 mL/min Estimated GFR (MDRD) 52 L (>60) Glucose 43 L* (74-106) mg/dL Calcium 8.1 L (8.5-10.1) mg/dL Med Orders - Current: Current Medications Acetaminophen (Tylenol) 650 mg PO Q4H PRN PRN Reason: Pain (Mild 1-3)/fever Last Admin: 08/26/16 20:34 Dose: 650 mg Albuterol (Proventil Neb Soln) 2.5 mg NEB Q4H PRN PRN Reason: Shortness Of Breath/wheezing Albuterol/Ipratropium (Duoneb 3.0-0.5 Mg/3 Ml) 3 ml NEB QIDRT [facility] Last Admin: 08/30/16 10:44 Dose: Not Given Aspirin (Halfprin) 81 mg PO DAILY [facility] Last Admin: 08/30/16 08:19 Dose: 81 mg Carvedilol (Coreg) 6.25 mg PO BIDMEALS [facility] Last Admin: 08/30/16 08:19 Dose: 6.25 mg Cefdinir (Omnicef) 300 mg PO BID [facility] Last Admin: 08/30/16 08:20 Dose: 300 mg Clopidogrel Bisulfate (Plavix) 75 mg PO BEDTIME [facility] Last Admin: 08/29/16 21:07 Dose: 75 mg Cyclosporine (Restasis) 0 each EYELF DAILY [facility] Last Admin: 08/30/16 08:21 Dose: Not Given Dextrose (Glutose 15) 15 gm PO ONETIME PRN PRN Reason: Hypoglycemia Dextrose/Water (Dextrose 50% In Water) 50 ml IV ONETIME PRN PRN Reason: Hypoglycemia Docusate Sodium (Colace) 100 mg PO BID PRN PRN Reason: Constipation Doxycycline Hyclate (Vibramycin) 100 mg PO BID [facility] Last Admin: 08/30/16 08:21 Dose: 100 mg Enoxaparin Sodium (Lovenox) 40 mg SUBCUT Q24H [facility] Last Admin: 08/29/16 17:05 Dose: 40 mg Guaifenesin/Dextromethorphan (Robitussin Dm) 10 ml PO Q4H PRN PRN Reason: Cough Last Admin: 08/29/16 03:28 Dose: 10 ml Insulin Aspart (Novolog) 0 unit SUBCUT ASDIRECTED [facility] PRN Reason: Protocol Last Admin: 08/30/16 11:52 Dose: 4 unit Insulin Detemir (Levemir) 26 unit SUBCUT BEDTIME [facility] Last Admin: 08/29/16 21:12 Dose: 26 units Isosorbide Mononitrate (Imdur) 120 mg PO DAILY [facility] Last Admin: 08/30/16 08:19 Dose: 120 mg Magnesium Hydroxide (Milk Of Magnesia) 30 ml PO Q12H PRN PRN Reason: Constipation Melatonin (Melatonin) 9 mg PO BEDTIME [facility] Last Admin: 08/29/16 21:06 Dose: 9 mg Nitroglycerin (Nitrostat) 0.4 mg SL ASDIRECTED PRN PRN Reason: CHEST DISCOMFORT Ondansetron HCl (Zofran) 4 mg IV Q4H PRN PRN Reason: Nausea/Vomiting Oxycodone HCl (Oxycodone) 5 mg PO Q4H PRN PRN Reason: Pain (moderate 4-6) (Ranolazine [Ranexa] (500 Mg)Pom) 0 each PO BID [facility] Last Admin: 08/30/16 08:20 Dose: 1 each Polyethylene Glycol (Miralax) 17 gm PO DAILY PRN PRN Reason: Constipation Rosuvastatin Calcium (Crestor) 5 mg PO MoWeFr@2100 [facility] Last Admin: 08/28/16 20:41 Dose: 5 mg Sodium Chloride (Saline Flush) 10 ml FLUSH ASDIRECTED PRN PRN Reason: Keep Vein Open Tamsulosin HCl (Flomax) 0.4 mg PO DAILY [facility] Last Admin: 08/30/16 08:19 Dose: 0.4 mg Tiotropium [place] (Spiriva Handihaler) 18 mcg INH DAILY [facility] Last Admin: 08/30/16 08:11 Dose: 18 mcg Discontinued Medications Carvedilol (Coreg) 6.25 mg PO BID [facility] Last Admin: 08/26/16 20:34 Dose: 6.25 mg Enoxaparin Sodium (Lovenox) 40 mg SUBCUT DAILY [facility] Last Admin: 08/26/16 18:38 Dose: 40 mg Enoxaparin Sodium (Lovenox) 40 mg SUBCUT Q24H [facility] Furosemide (Lasix) 40 mg IVPUSH NOW ONE Stop: 08/29/16 14:01 Last Admin: 08/29/16 13:53 Dose: 40 mg Furosemide (Lasix) 40 mg IVPUSH NOW ONE Stop: 08/30/16 07:01 Last Admin: 08/30/16 08:19 Dose: 40 mg Levofloxacin/Dextrose 750 mg/ (Premix) 150 mls @ 100 mls/hr IV Q48H [facility] Last Admin: 08/26/16 18:02 Dose: 100 mls/hr Sodium Chloride (Normal Saline) 1,000 mls @ 125 mls/hr IV ASDIRECTED [facility] Last Admin: 08/27/16 05:35 Dose: 125 mls/hr Ceftriaxone Sodium 2 gm/ (Sodium Chloride) 50 mls @ 100 mls/hr IV Q24H [facility] Last Admin: 08/28/16 20:34 Dose: 100 mls/hr Vancomycin HCl 1.25 gm/ Sodium (Chloride) 250 mls @ 166.667 mls/hr IV Q24H [facility] Last Admin: 08/28/16 20:49 Dose: 166.667 mls/hr Sodium Chloride (Normal Saline) Confirm Administered Dose 250 mls @ as directed .ROUTE .STK-MED ONE Stop: 08/26/16 20:58 Last Admin: 08/26/16 21:04 Dose: Not Given Insulin Aspart (Novolog) 0 unit SUBCUT ASDIRECTED PRN; Protocol PRN Reason: PER SLIDING SCALE Last Admin: 08/27/16 21:04 Dose: 8 units Insulin Aspart (Novolog) 0 unit SUBCUT ONETIME STA Stop: 08/28/16 06:12 Last Admin: 08/28/16 06:27 Dose: 12 unit Insulin Aspart (Novolog) 12 unit SUBCUT ONETIME ONE Stop: 08/28/16 08:16 Last Admin: 08/28/16 08:44 Dose: 12 units Insulin Aspart (Novolog) 12 unit SUBCUT ONETIME ONE Stop: 08/28/16 13:11 Last Admin: 08/28/16 13:01 Dose: 12 units Insulin Aspart (Novolog) 14 unit SUBCUT ONETIME ONE Stop: 08/28/16 16:35 Last Admin: 08/28/16 16:46 Dose: 14 units Insulin Detemir (Levemir) 15 unit SUBCUT BEDTIME [facility] Last Admin: 08/26/16 20:42 Dose: 15 unit Insulin Detemir (Levemir) 15 unit SUBCUT BEDTIME [facility] Last Admin: 08/27/16 20:44 Dose: 15 units Insulin Detemir (Levemir) 20 unit SUBCUT BEDTIME [facility] Last Admin: 08/28/16 20:49 Dose: 20 units Methylprednisolone Sodium Succinate (Solu-Medrol) 40 mg IVPUSH Q8H [facility] Last Admin: 08/28/16 11:07 Dose: 40 mg Sodium Chloride (Saline Flush) 10 ml FLUSH ASDIRECTED PRN PRN Reason: Keep Vein Open Last Admin: 08/26/16 14:27 Dose: 10 ml Vancomycin HCl (Vancomycin) 1 gm IV ASDIRECTED ONE Stop: 08/26/16 17:36 Last Admin: 08/27/16 11:09 Dose: Not Given *Q Meaningful Use (DIS) - VTE *Q VTE Criteria *Q: - Stroke *Q Stroke Criteria *Q: - AMI *Q AMI Criteria *Q:
[2016-08-30] MEDS: guaiFENesin/Dextromethorphan 100-10 MG/5 ML Soln 10 ML Cup PO PRN (14:24)
== END 2016-08-30 14:30 | disposition home health service (06) | DRG 193 ==
LOC: JP.ED 13:10 → JP.ICU 16:49 → UNDOADMIN 17:25 → JP.ICU 17:25 → JP.MS 08-27 10:30 → JP.ICU 08-27 10:30 → UNDODISIN 08-30 14:30
PROVIDERS: ADMIT Hospitalist; ATTEND Hospitalist
DX: J18.9 Pneumonia, unspecified organism (principal); J96.91 Respiratory failure, unspecified with hypoxia; I50.9 Heart failure, unspecified; E11.9 Type 2 diabetes mellitus without complications; I25.10 Atherosclerotic heart disease of native coronary artery without angina pectoris; Z66 Do not resuscitate; R29.6 Repeated falls; J44.9 Chronic obstructive pulmonary disease, unspecified; Z79.4 Long term (current) use of insulin; R74.8 Abnormal levels of other serum enzymes; Z87.891 Personal history of nicotine dependence; G30.9 Alzheimer's disease, unspecified; F02.80 Dementia in other diseases classified elsewhere, unspecified severity, without behavioral disturbance, psychotic disturbance, mood disturbance, and anxiety; Z51.5 Encounter for palliative care; N40.1 Benign prostatic hyperplasia with lower urinary tract symptoms; R33.8 Other retention of urine; Z87.01 Personal history of pneumonia (recurrent); I25.2 Old myocardial infarction; H54.7 Unspecified visual loss; H91.90 Unspecified hearing loss, unspecified ear; Z95.1 Presence of aortocoronary bypass graft; Z79.82 Long term (current) use of aspirin
CPT/HCPCS: 36415; 36600; 71020 ×2; 80053; 82803; 83880; 84484; 85025; 87040 ×2; 99285; J7050; 80048; 82962; 83735; 94640-76; 94664; 94762; 97162-GP; A9270-GY; J0696; J1650; J1940; J1956; J2920; J3370; J7040; J7620

== ENCOUNTER 2016-11-07 15:21 | Emergency (ER) | payer MEDICARE ==
[2016-11-07 15:36] VITALS: BP 126/68
--- NOTE | 2016-11-07 15:48 | EDM.PDOC ---
[id number] Complaint: [facility] Time Seen by Provider: 11/07/16 15:30 Source of Information: Reports: Patient, EMS, Family History Limitations: Reports: No Limitations - History of Present Illness INITIAL COMMENTS - FREE TEXT/NARRATIVE: 86-year-old male was standing on a workbench when he stumbled and fell backwards landing on his back onto a concrete floor. He has no shortness of breath but has some pleuritic pain with breathing, and intense pain to the scapula and upper left arm, as well as some pain in the left elbow. He did not hit his head and does not have neck pain. He was brought in with a makeshift sling to the left arm and is fairly comfortable as long as it is still. Onset: Sudden Duration: Hour(s): (Within the last few hours) Location: Reports: Chest, Back, Upper Extremity, Left Quality: Reports: Sharp, Stabbing Severity: Moderate Worsens with: Reports: Movement Associated Symptoms: Reports: No Other Symptoms. Denies: Confusion, Cough, Fever/Chills, Nausea/Vomiting, Shortness of Breath - Related Data Allergies Allergy/AdvReac Type Severity Reaction Status Date / Time No Known Allergies Allergy Verified 11/07/16 15:25 Home Meds: Home Meds Aspirin [Adult Low Dose Aspirin EC] 81 mg PO DAILY 08/29/13 [History] Carvedilol [Coreg] 6.25 mg PO BID 08/29/13 [History] Insulin Aspart [NovoLOG] 0 - 4 unit SQ ASDIRECTED 08/29/13 [History] Insulin Glarg,Human.Rec.Analog [Lantus] 10 unit SQ BEDTIME 08/29/13 [History] Isosorbide Mononitrate [Imdur] 120 mg PO DAILY 08/29/13 [History] Multivitamin [Multivitamins] 1 tab PO DAILY 08/29/13 [History] Tamsulosin [Flomax] 0.4 mg PO DAILY 08/29/13 [History] Tiotropium [Spiriva HandiHaler] 1 cap INH DAILY 08/29/13 [History] cycloSPORINE [Restasis] 1 each OP ASDIRECTED 08/29/13 [History] Nitroglycerin [Nitrostat] 0.4 mg SL ASDIRECTED 08/17/16 [History] Ranolazine [Ranexa] 500 mg PO BID 08/17/16 [History] Rosuvastatin Calcium 5 mg PO ASDIRECTED 08/17/16 [History] Benzonatate 200 mg PO TID 08/26/16 [History] Clopidogrel [Plavix] 75 mg PO BEDTIME 08/26/16 [History] Gluc/Jude-Msm#1/Vit C/Maxi/Bor [Zrkfkyf-Pwcfp-XHF Complex Cplt] 1 each PO DAILY 08/26/16 [History] Furosemide 20 mg PO DAILY #30 tablet 08/30/16 [Rx] Past Medical History HEENT History: Reports: Hard of Hearing, Impaired Vision, Other (See Below) Other HEENT History: Wears hearing aid Cardiovascular History: Reports: Bypass, CAD, High Cholesterol, Hypertension, [place] Respiratory History: Reports: COPD Genitourinary History: Reports: BPH Other Genitourinary History: Taked Flomax Neurological History: Reports: Vertigo Psychiatric History: Reports: Dementia Endocrine/Metabolic History: Reports: Diabetes, Type II - Infectious Disease History Infectious Disease History: Reports: Chicken Pox - Past Surgical History HEENT Surgical History: Reports: Adenoidectomy, Laser Surgery, Tonsillectomy Cardiovascular Surgical History: Reports: Carotid Endarterectomy, Coronary Artery Bypass Respiratory Surgical History: Reports: Thoracotomy Musculoskeletal Surgical History: Reports: Shoulder Surgery Social & Family History - Tobacco Use Smoking Status *Q: Unknown Ever Smoked Used Tobacco, but Quit: Yes Month Tobacco Last Used: 1951 - Caffeine Use Caffeine Use: Reports: Coffee - Recreational Drug Use Recreational Drug Use: No - Living Situation & Occupation Living situation: Reports: , with Family Occupation: Retired (lives with Marilee of 64 years, [place] in [place], Summer at [employer], have 2 adult children one lives in [facility] , one live in [place].) Review of Systems - Review of Systems Review Of Systems: See Below Constitutional: Denies: Fever Eyes: Reports: No Symptoms Respiratory: Reports: Pleuritic Chest Pain Cardiovascular: Reports: No Symptoms GI/Abdominal: Reports: No Symptoms Skin: Reports: Bruising (Several bruises on the extremities) Neurological: Denies: Headache Psychiatric: Reports: No Symptoms ED EXAM, GENERAL - Physical Exam Exam: See Below Exam Limited By: No Limitations General Appearance: Alert, Mild Distress Eye Exam: Bilateral Eye: EOMI Respiratory/Chest: No Respiratory Distress, Lungs Clear Cardiovascular: Regular Rate, Rhythm GI/Abdominal: Soft, Non-Tender Extremities: Other (Patient is exquisitely tender to palpation around the left shoulder, scapula, and proximal humerus as well as around the elbow. There is no deformity.) Course - Vital Signs Last Recorded V/S: Last Vital Signs Temp 97.3 F 11/07/16 15:35 Pulse 55 L 11/07/16 15:35 Resp 16 11/07/16 15:35 BP 126/68 11/07/16 15:35 Pulse Ox 95 11/07/16 15:35 - Orders/Labs/Meds Orders: Active Orders 24 hr Category Date Time Status Chest wo Cont [CT] Stat Exams 11/07/16 15:41 Taken Elbow 2V Lt [CR] Stat Exams 11/07/16 15:41 Taken Shoulder wo Cont Lt [CT] Stat Exams 11/07/16 Taken Meds: Medications Discontinued Medications Generic Name Dose Route Start Last Admin Trade Name Freq PRN Reason Stop Dose Admin Ketorolac Tromethamine 60 mg 11/07/16 16:43 11/07/16 16:55 Toradol IM 11/07/16 16:44 Not Given ONETIME ONE Ketorolac Tromethamine 30 mg 11/07/16 16:54 11/07/16 16:57 Toradol IVPUSH 11/07/16 16:55 30 mg ONETIME ONE Administration - Re-Assessments/Exams Free Text/Narrative Re-Assessment/Exam: 11/07/16 15:47 Patient was sent back for a left elbow and humerus x-ray as well as a chest CT without contrast. 11/07/16 16:55 X-ray and CT scan revealed a proximal somewhat displaced surgical neck fracture of the left humerus. There were no rib fractures, scapular was normal, elbow was negative. The fracture was discussed with Joby Frias, orthopedics, the patient will be placed in a sling and swath and rechecked on . His and the patient both want to avoid narcotics as he has significant side effects. He was discharged with the business card to contact Dr. Frias, and will recheck on . Departure - Departure Time of Disposition: 17:42 Disposition: Home, Self-Care 01 Condition: Good Clinical Impression: Fracture, humerus closed Qualifiers: Encounter type: initial encounter Humerus Location: surgical neck Fracture morphology: 2-part Fracture alignment: displaced Laterality: left Qualified Code (s): S42.222A - 2-part displaced fracture of surgical neck of left humerus, initial encounter for closed fracture - Discharge Information Instructions: Humerus Fracture Treated With Immobilization, [id number] Referrals: PCP,None [Primary Care Provider] - Forms: ED Department Discharge Care Plan Goals: Wear sling until recheck on . Call tomorrow morning to get a time to be seen. Use naproxen such as Aleve 2 pills twice daily and add Tylenol as needed. They are safe to take together. Recheck sooner if pain is uncontrolled or you have other concerns. - My Orders Last 24 Hours: My Active Orders 11/07/16 Shoulder wo Cont Lt [CT] Stat 11/07/16 15:41 Chest wo Cont [CT] Stat Elbow 2V Lt [CR] Stat - Assessment/Plan Last 24 Hours: My Active Orders 11/07/16 Shoulder wo Cont Lt [CT] Stat 11/07/16 15:41 Chest wo Cont [CT] Stat Elbow 2V Lt [CR] Stat
[2016-11-07] MEDS: Ketorolac 60 MG/2 ML SDV IM ONE ×2 (16:52→16:55)
[2016-11-07] MEDS ORDERED: Ketorolac 30 MG/ML SDV IVPUSH ONE (16:54)
--- NOTE | 2016-11-08 08:32 | CR ---
Elbow 2V Lt HISTORY: fall, pain FINDINGS: No acute fracture or dislocation is identified. Bony architecture and joint spaces are preserved. Soft tissues are unremarkable. IMPRESSION: No acute left elbow abnormality identified.
== END 2016-11-07 17:42 | disposition home or self-care (01) ==
LOC: JP.ED 15:21
DX: S42.222A 2-part displaced fracture of surgical neck of left humerus, initial encounter for closed fracture (principal); I25.2 Old myocardial infarction; I10 Essential (primary) hypertension; I25.10 Atherosclerotic heart disease of native coronary artery without angina pectoris; E78.00 Pure hypercholesterolemia, unspecified; J44.9 Chronic obstructive pulmonary disease, unspecified; F03.90 Unspecified dementia, unspecified severity, without behavioral disturbance, psychotic disturbance, mood disturbance, and anxiety; E11.9 Type 2 diabetes mellitus without complications; Z95.1 Presence of aortocoronary bypass graft; Z98.890 Other specified postprocedural states; Z79.02 Long term (current) use of antithrombotics/antiplatelets; Z79.4 Long term (current) use of insulin; Z79.82 Long term (current) use of aspirin; Z79.899 Other long term (current) drug therapy; W17.89XA Other fall from one level to another, initial encounter
CPT/HCPCS: 71250; 73070; 73200; 96372; 96374; 99284; J1885

== ENCOUNTER 2016-11-23 10:44 | Inpatient (IN) | payer MEDICARE ==
[2016-11-23] MEDS ORDERED: Sodium Chloride 0.9% 10 ML Syringe FLUSH PRN (10:48)
[2016-11-23] MEDS ORDERED: hydrOXYzine HCl 100 MG/2 ML SDV IM PRN (10:48)
[2016-11-23] MEDS ORDERED: Ondansetron 4 MG/2 ML SDV IV PRN (10:48)
[2016-11-23] MEDS: Lactated Ringers 500 ML IV SCH (13:30)
--- NOTE | 2016-11-23 14:57 | PCM.HP ---
H&P History of Present Illness - General Date of Service: 11/23/16 Admit Problem/Dx: Admission Diagnosis/Problem Admission Diagnosis/Problem Fracture of anatomical neck of humerus Source of Information: Patient History Limitations: Reports: No Limitations - History of Present Illness Initial Comments - Free Text/Narative: Tonio is a pleasant 86 year old male who is having pain in his left humerous due to a fracture from a fall. we have been trying nonoperative treatment with a sling and swath for the last 2 weeks. Patient comes in today for follow-up. His arm was much more displaced at this time. He had a large hematoma noted on the medial bicep. Ecchymosis noted throughout. There is a large lump noted where the humerus shaft is displaced. Skin is still clean dry and intact at this time. also notes that over the last 2 weeks patient has been experiencing hypo- tension and hypoglycemia. She is quite concerned regarding this. She states that the may be a contributing factor to why he fell in the first place and received this fracture. Left Arm Pain Score (Numeric/FACES): 1 - Related Data Allergies/Adverse Reactions: Allergies Allergy/AdvReac Type Severity Reaction Status Date / Time No Known Allergies Allergy Verified 11/07/16 15:25 Home Medications: Home Meds Aspirin [Adult Low Dose Aspirin EC] 81 mg PO DAILY 08/29/13 [History] Carvedilol [Coreg] 3.125 mg PO BID 08/29/13 [History] Insulin Aspart [NovoLOG] 0 - 4 unit SQ ASDIRECTED 08/29/13 [History] Insulin Glarg,Human.Rec.Analog [Lantus] 10 unit SQ BEDTIME 08/29/13 [History] Isosorbide Mononitrate [Imdur] 60 mg PO DAILY 08/29/13 [History] Multivitamin [Multivitamins] 1 tab PO DAILY 08/29/13 [History] Tamsulosin [Flomax] 0.4 mg PO DAILY 08/29/13 [History] Tiotropium [Spiriva HandiHaler] 1 cap INH DAILY 08/29/13 [History] cycloSPORINE [Restasis] 1 each OP BID 08/29/13 [History] Nitroglycerin [Nitrostat] 0.4 mg SL ASDIRECTED 08/17/16 [History] Ranolazine [Ranexa] 500 mg PO BID 08/17/16 [History] Rosuvastatin Calcium 5 mg PO ASDIRECTED 08/17/16 [History] Clopidogrel [Plavix] 75 mg PO DAILY 08/26/16 [History] Gluc/Jude-Msm#1/Vit C/Maxi/Bor [Jqrjrep-Skreu-IOM Complex Cplt] 1 each PO DAILY 08/26/16 [History] Furosemide 20 mg PO DAILY PRN 11/23/16 [History] Rivastigmine [Exelon] 1.5 mg PO BIDM 11/23/16 [History] Past Medical History HEENT History: Reports: Hard of Hearing, Impaired Vision, Other (See Below) Other HEENT History: Wears hearing aid Cardiovascular History: Reports: Bypass, CAD, High Cholesterol, Hypertension, [place] Respiratory History: Reports: COPD Genitourinary History: Reports: BPH Other Genitourinary History: Takes Flomax Musculoskeletal History: Reports: Other (See Below) Other Musculoskeletal History: Fx L humerous Neurological History: Reports: Neuropathy, Diabetic, Vertigo Psychiatric History: Reports: Alzheimers Disease, Dementia Endocrine/Metabolic History: Reports: Diabetes, Type II Hematologic History: Reports: Anticoagulation Therapy Dermatologic History: Reports: Other (See Below) Other Dermatologic History: facial lesion reoccurring - Infectious Disease History Infectious Disease History: Reports: Chicken Pox, Measles, Mumps - Past Surgical History HEENT Surgical History: Reports: Adenoidectomy, Laser Surgery, Tonsillectomy Cardiovascular Surgical History: Reports: Carotid Endarterectomy, Coronary Artery Bypass Respiratory Surgical History: Reports: Thoracotomy Male Surgical History: Reports: None Endocrine Surgical History: Reports: None Musculoskeletal Surgical History: Reports: Shoulder Surgery Dermatological Surgical History: Reports: None Social & Family History - Tobacco Use Smoking Status *Q: Former Smoker Years of Tobacco use: 9 Packs/Tins Daily: 1 Used Tobacco, but Quit: Yes Month Tobacco Last Used: 04/1951 - Caffeine Use Caffeine Use: Reports: Coffee Caffeine Use Comment: 2-3 cups daily - Alcohol Use Days Per Week of Alcohol Use: 7 Number of Drinks Per Day: 1 Total Drinks Per Week: 7 Date of Last Drink: 11/22/16 Time of Last Drink: 21:00 - Recreational Drug Use Recreational Drug Use: No - Living Situation & Occupation Living situation: Reports: , with Family Occupation: Retired (lives with Marilee of 64 years, Odell in [place], Summer at [employer], have 2 adult children one lives in [facility] , one live in [place].) H&P Review of Systems - Review of Systems: Review Of Systems: See Below General: Reports: No Symptoms Musculoskeletal: Reports: Arm Pain Skin: Reports: No Symptoms, Bruising Psychiatric: Reports: Confusion (patient has Alzheimer's and dementia) Neurological: Reports: Confusion Hematologic/Lymphatic: Reports: No Symptoms Immunologic: Reports: No Symptoms Exam - Exam Exam: See Below - Vital Signs Vital Signs: Last Vital Signs Temp 36.4 C 11/23/16 11:02 Pulse 55 L 11/23/16 11:02 Resp 18 11/23/16 11:02 BP 105/69 11/23/16 11:02 Pulse Ox 99 11/23/16 11:02 Weight: 172 lb - Exam General: Alert, Cooperative Extremities: Joint Swelling, Arm Pain, Limited Range of Motion Peripheral Pulses: 2+: Radial (L), Radial (R) Skin: Warm, Dry, Intact, Ecchymosis Skin Alteration Location (Drawings Not To Scale): 1 - Large hematoma present Neurological: Strength Equal Bilateral, Normal Speech Neuro Extensive - Mental Status: Alert, Oriented x3 Psychiatric: Alert - Patient Data Lab Results Last 24 hrs: Laboratory Results - last 24 hr 11/23/16 Range/Units 10:48 WBC 8.6 (4.5-11.0) K/uL RBC 3.41 L (4.30-5.90) M/uL Hgb 11.0 L (12.0-15.0) g/dL Hct 33.7 L (40.0-54.0) % MCV 99 H (80-98) fL MCH 32 H (27-31) pg MCHC 33 (32-36) % Plt Count 314 (150-400) K/uL Neut % (Auto) 72 H (36-66) % Lymph % (Auto) 13 L (24-44) % [place] % (Auto) 10 H (2-6) % Eos % (Auto) 4 (2-4) % Baso % (Auto) 1 (0-1) % Result Diagrams: 11/23/16 10:48 *Q Meaningful Use (ADM) - VTE *Q VTE Criteria *Q: - Stroke *Q Stroke Criteria *Q: - AMI *Q AMI Criteria *Q: Problem List Initiated/Reviewed/Updated: Yes Orders Last 24hrs: Active Orders 24 hr Category Date Time Status Patient Status [ADT] Routine ADT 11/23/16 10:48 Active Ambulate [RC] QID Care 11/23/16 10:48 Active Cardiac Monitoring [RC] .As Directed Care 11/23/16 10:49 Active Intake and Output [RC] QSHIFT Care 11/23/16 10:49 Active May Shower [RC] ASDIRECTED Care 11/23/16 10:48 Active Notify Provider Consults [RC] ASDIRECTED Care 11/23/16 10:53 Active Oxygen Therapy [RC] PRN Care 11/23/16 10:48 Active Up With Assistance [RC] ASDIRECTED Care 11/23/16 10:48 Active Up to Chair [RC] QID Care 11/23/16 10:48 Active Vital Signs [RC] Q4H Care 11/23/16 10:48 Active Consult to Physician [CONS] Routine Cons 11/23/16 10:48 Ordered Nothing per Oral After Midnight Diet [DIET] Diet 11/23/16 Dinner Active Regular Diet [DIET] Diet 11/23/16 Lunch Active Lactated Ringers [Ringers, Lactated] 500 ml Med 11/23/16 11:00 Active IV .BOLUS Morphine Med 11/23/16 10:48 Active 2 mg IVPUSH Q2H PRN Ondansetron [Zofran] Med 11/23/16 10:48 Active 4 mg IV Q6H PRN Sodium Chloride 0.9% [Saline Flush] Med 11/23/16 10:48 Active 10 ml FLUSH ASDIRECTED PRN hydrOXYzine HCl [Vistaril] Med 11/23/16 10:48 Active 100 mg IM Q6H PRN Glucose Management Sub Q Reflex [OM.PC] Click To Edit Oth 11/23/16 10:48 Ordered Peripheral IV Insertion Adult [OM.PC] Routine Oth 11/23/16 10:48 Ordered Sequential Compression Device [OM.PC] Per Unit Routine Oth 11/23/16 10:51 Ordered Resuscitation Status Routine Resus Stat 11/23/16 10:48 Ordered EKG 12 Lead [EK] Stat Ther 11/23/16 10:48 Ordered Medication Orders Hydroxyzine HCl (Vistaril) 100 mg IM Q6H PRN PRN Reason: Nausea/Vomiting Lactated Ringer's (Ringers, Lactated) 500 mls @ 150 mls/hr IV .BOLUS PAULA Last Admin: 11/23/16 13:30 Dose: 150 mls/hr Morphine Sulfate (Morphine) 2 mg IVPUSH Q2H PRN PRN Reason: Pain (severe 7-10) Ondansetron HCl (Zofran) 4 mg IV Q6H PRN PRN Reason: Nausea/Vomiting Sodium Chloride (Saline Flush) 10 ml FLUSH ASDIRECTED PRN PRN Reason: Keep Vein Open Assessment/Plan Comment:: at this time have decided to admit the patient. We will have him cleared by the hospitalist for possible surgery on November 24. We'll do an ORIF of the left humerus. We will observe his hypotension and hypoglycemia.
[2016-11-23] MEDS ORDERED: Furosemide 20 MG Tab PO PRN (17:35)
[2016-11-23] MEDS ORDERED: Glucose Gel 15 GM in 37.5 GM Tube PO PRN (17:37)
[2016-11-23] MEDS ORDERED: 50% Dextrose in Water 50 ML Syringe IV PRN (17:37)
--- NOTE | 2016-11-23 17:48 | PCM.CONS ---
H&P History of Present Illness - General Date of Service: 11/23/16 Admit Problem/Dx: Source of Information: Patient, Family, Provider, RN Notes Reviewed History Limitations: Reports: Altered Mental Status (Dementia) - History of Present Illness Initial Comments - Free Text/Narative: Mr. Bui is an 86-year-old gentleman who I been asked to see by Dr. Koby Frias for assistance in medical management prior to and after surgery for surgical repair of a fractured humerus. Mr. Bui fell approximately 2 weeks ago fracturing his left humerus. Initial plan at been to proceed with conservative management, arm was placed in a sling. He was seen today for follow -up in the orthopedic clinic, he is noted to have bone that is tenting the skin and at risk for puncturing or eroding through the skin. Because of this, Dr. Frias has decided the best means for ongoing management will be surgical repair of the fracture. Mr. Bui does have a known history of coronary artery disease which is severe, he's been told by cardiology that there is no further possibility of intervention. He does have symptoms of angina on a fairly regular basis associated with exertion. Anginal symptoms are fairly predictable and occur at a mild to moderate level of exertion. He denies any symptoms of rest angina or nocturnal angina. He does have known congestive heart failure with seems to be well compensated as well as a history of dementia. Left Arm Pain Score (Numeric/FACES): 1 - Related Data Allergies/Adverse Reactions: Allergies Allergy/AdvReac Type Severity Reaction Status Date / Time No Known Allergies Allergy Verified 11/07/16 15:25 Home Medications: Home Meds Aspirin [Adult Low Dose Aspirin EC] 81 mg PO DAILY 08/29/13 [History] Carvedilol [Coreg] 3.125 mg PO BID 08/29/13 [History] Insulin Aspart [NovoLOG] 0 - 4 unit SQ ASDIRECTED 08/29/13 [History] Insulin Glarg,Human.Rec.Analog [Lantus] 10 unit SQ BEDTIME 08/29/13 [History] Isosorbide Mononitrate [Imdur] 60 mg PO DAILY 08/29/13 [History] Multivitamin [Multivitamins] 1 tab PO DAILY 08/29/13 [History] Tamsulosin [Flomax] 0.4 mg PO DAILY 08/29/13 [History] Tiotropium [Spiriva HandiHaler] 1 cap INH DAILY 08/29/13 [History] cycloSPORINE [Restasis] 1 each OP BID 08/29/13 [History] Nitroglycerin [Nitrostat] 0.4 mg SL ASDIRECTED 08/17/16 [History] Ranolazine [Ranexa] 500 mg PO BID 08/17/16 [History] Rosuvastatin Calcium 5 mg PO ASDIRECTED 08/17/16 [History] Clopidogrel [Plavix] 75 mg PO DAILY 08/26/16 [History] Gluc/Jude-Msm#1/Vit C/Maxi/Bor [Fwpxtus-Cdycg-UIU Complex Cplt] 1 each PO DAILY 08/26/16 [History] Furosemide 20 mg PO DAILY PRN 11/23/16 [History] Rivastigmine [Exelon] 1.5 mg PO BIDM 11/23/16 [History] Past Medical History HEENT History: Reports: Hard of Hearing, Impaired Vision, Other (See Below) Other HEENT History: Wears hearing aid Cardiovascular History: Reports: Bypass, CAD, High Cholesterol, Hypertension, [place] Respiratory History: Reports: COPD Genitourinary History: Reports: BPH Other Genitourinary History: Takes Flomax Musculoskeletal History: Reports: Other (See Below) Other Musculoskeletal History: Fx L humerous Neurological History: Reports: Neuropathy, Diabetic, Vertigo Psychiatric History: Reports: Alzheimers Disease, Dementia Endocrine/Metabolic History: Reports: Diabetes, Type II Hematologic History: Reports: Anticoagulation Therapy Dermatologic History: Reports: Other (See Below) Other Dermatologic History: facial lesion reoccurring - Infectious Disease History Infectious Disease History: Reports: Chicken Pox, Measles, Mumps - Past Surgical History HEENT Surgical History: Reports: Adenoidectomy, Laser Surgery, Tonsillectomy Cardiovascular Surgical History: Reports: Carotid Endarterectomy, Coronary Artery Bypass Respiratory Surgical History: Reports: Thoracotomy Male Surgical History: Reports: None Endocrine Surgical History: Reports: None Musculoskeletal Surgical History: Reports: Shoulder Surgery Dermatological Surgical History: Reports: None Social & Family History - Tobacco Use Smoking Status *Q: Former Smoker Years of Tobacco use: 9 Packs/Tins Daily: 1 Used Tobacco, but Quit: Yes Month Tobacco Last Used: 04/1951 - Caffeine Use Caffeine Use: Reports: Coffee Caffeine Use Comment: 2-3 cups daily - Alcohol Use Days Per Week of Alcohol Use: 7 Number of Drinks Per Day: 1 Total Drinks Per Week: 7 Date of Last Drink: 11/22/16 Time of Last Drink: 21:00 - Recreational Drug Use Recreational Drug Use: No - Living Situation & Occupation Living situation: Reports: , with Family Occupation: Retired (lives with Marilee of 64 years, Odell in [place], Summer at [employer], have 2 adult children one lives in [place] , one live in [place].) H&P Review of Systems - Review of Systems: Review Of Systems: Unable To Obtain General: Reports: ROS unobtainable (Dementia) Exam - Exam Exam: See Below - Vital Signs Vital Signs: Last Vital Signs Temp 97.1 F 11/23/16 15:28 Pulse 50 L 11/23/16 15:28 Resp 16 11/23/16 15:28 BP 142/84 H 11/23/16 15:28 Pulse Ox 99 11/23/16 15:28 Weight: 172 lb - Exam General: Alert, Cooperative, Mild Distress Neck: Supple, +2 Carotid Pulse wo Bruit Lungs: Clear to Auscultation, Normal Respiratory Effort. No: Rales, Rhonchi, Wheezing Cardiovascular: Regular Rate, Regular Rhythm, Normal S1, Normal S2, Systolic Murmur. No: Diastolic Murmur GI/Abdominal Exam: Normal Bowel Sounds, Soft, Non-Tender, No Distention Back Exam: Normal Inspection, Full Range of Motion Extremities: No Pedal Edema, Other (Left arm is a sling secondary to humerus fracture) Skin: Warm, Dry, Intact - Patient Data Lab Results Last 24 hrs: Laboratory Results - last 24 hr 11/23/16 Range/Units 10:48 WBC 8.6 (4.5-11.0) K/uL RBC 3.41 L (4.30-5.90) M/uL Hgb 11.0 L (12.0-15.0) g/dL Hct 33.7 L (40.0-54.0) % MCV 99 H (80-98) fL MCH 32 H (27-31) pg MCHC 33 (32-36) % Plt Count 314 (150-400) K/uL Neut % (Auto) 72 H (36-66) % Lymph % (Auto) 13 L (24-44) % [place] % (Auto) 10 H (2-6) % Eos % (Auto) 4 (2-4) % Baso % (Auto) 1 (0-1) % Result Diagrams: 11/23/16 10:48 Consult PN Assessment/Plan Procedures: Procedures AIRWAY INHALATION TREATMENT (08/26/16) ASSAY OF LACTIC ACID (08/18/16) ASSAY OF MAGNESIUM (08/26/16) ASSAY OF NATRIURETIC PEPTIDE (08/26/16) ASSAY OF TROPONIN QUANT (08/26/16) BLOOD CULTURE FOR BACTERIA (08/26/16) BLOOD GASES ANY COMBINATION (08/26/16) CARDIAC REHAB/MONITOR (03/03/13) CARDIOVASCULAR STRESS TEST (09/03/13) CARDIOVASCULAR STRESS TEST (09/03/13) CHEST X-RAY 2VW FRONTAL&LATL (08/26/16) COMPLETE CBC W/AUTO DIFF WBC (08/26/16) COMPREHEN METABOLIC PANEL (08/26/16) CT HEAD/BRAIN W/O DYE (08/18/16) CT NECK SPINE W/O DYE (10/15/15) CT THORAX W/O DYE (11/07/16) CT UPPER EXTREMITY W/O DYE (11/07/16) ELECTROCARDIOGRAM REPORT (10/15/15) ELECTROCARDIOGRAM TRACING (08/18/16) EMERGENCY DEPT VISIT (11/07/16) EMERGENCY DEPT VISIT (08/26/16) EMERGENCY DEPT VISIT (10/15/15) EMERGENCY DEPT VISIT (10/15/15) EVALUATE PT USE OF INHALER (08/26/16) GLUCOSE BLOOD TEST (08/26/16) HT MUSCLE IMAGE SPECT MULT (09/03/13) INFLUENZA ASSAY W/OPTIC (08/18/16) MEASURE BLOOD OXYGEN LEVEL (08/26/16) METABOLIC PANEL TOTAL CA (08/26/16) MICROBE SUSCEPTIBLE DEDRICK (08/18/16) PROTHROMBIN TIME (08/18/16) PT EVAL MOD COMPLEX 30 MIN (08/26/16) ROUTINE VENIPUNCTURE (08/26/16) THER/PROPH/DIAG INJ IV PUSH (11/07/16) THER/PROPH/DIAG INJ SC/IM (11/07/16) THROMBOPLASTIN TIME PARTIAL (08/18/16) TTE W/DOPPLER COMPLETE (01/10/16) UPR/L XTREMITY ART 2 LEVELS (07/09/14) URINALYSIS AUTO W/SCOPE (08/18/16) URINE BACTERIA CULTURE (08/18/16) URINE CULTURE/COLONY COUNT (08/18/16) WITHDRAWAL OF ARTERIAL BLOOD (08/26/16) X-RAY EXAM OF ELBOW (11/07/16) Problem List Initiated/Reviewed/Updated: Yes My Orders Last 24 Hours: My Active Orders 11/23/16 17:35 Furosemide [Lasix] 20 mg PO DAILY PRN 11/23/16 17:37 Blood Glucose Check, Bedside [RC] QIDACANDBED Diabetes Education [RC] Click to Edit Notify Provider [RC] PRN Dextrose 50% in Water 50 ml IV ONETIME PRN Dextrose [Glutose 15] 15 gm PO ONETIME PRN 11/23/16 17:38 Communication Order [RC] ASDIRECTED 11/23/16 17:45 Rosuvastatin [Crestor] 5 mg PO ASDIRECTED 11/23/16 21:00 GLUCOSE POC LAB TO COLLECT [POC] QIDACANDBED Carvedilol [Coreg] 3.125 mg PO BID Insulin Detemir [Levemir] 10 unit SUBCUT 2100 Ranolazine [Ranexa] 500 mg PO BID cycloSPORINE [Restasis] 1 each EYEBOTH BID 11/23/16 22:00 Insulin Aspart [NovoLOG] See Protocol SUBCUT QID 11/24/16 05:00 BASIC METABOLIC PANEL,BMP [CHEM] Timed CBC WITH AUTO DIFF [HEME] Timed 11/24/16 07:30 GLUCOSE POC LAB TO COLLECT [POC] QIDACANDBED 11/24/16 08:00 Rivastigmine [Exelon] 1.5 mg PO BIDM 11/24/16 09:00 Aspirin [Halfprin] 81 mg PO DAILY Isosorbide Mononitrate [Imdur] 60 mg PO DAILY Tamsulosin [Flomax] 0.4 mg PO DAILY Tiotropium [Spiriva HandiHaler] DOSE mcg INH DAILY 11/24/16 11:30 GLUCOSE POC LAB TO COLLECT [POC] QIDACANDBED 11/24/16 16:30 GLUCOSE POC LAB TO COLLECT [POC] QIDACANDBED 11/24/16 21:00 GLUCOSE POC LAB TO COLLECT [POC] QIDACANDBED 11/25/16 07:30 GLUCOSE POC LAB TO COLLECT [POC] QIDACANDBED 11/25/16 11:30 GLUCOSE POC LAB TO COLLECT [POC] QIDACANDBED 11/25/16 16:30 GLUCOSE POC LAB TO COLLECT [POC] QIDACANDBED 11/25/16 21:00 GLUCOSE POC LAB TO COLLECT [POC] QIDACANDBED 11/26/16 07:30 GLUCOSE POC LAB TO COLLECT [POC] QIDACANDBED 11/26/16 11:30 GLUCOSE POC LAB TO COLLECT [POC] QIDACANDBED 11/26/16 16:30 GLUCOSE POC LAB TO COLLECT [POC] QIDACANDBED 11/26/16 21:00 GLUCOSE POC LAB TO COLLECT [POC] QIDACANDBED 11/27/16 07:30 GLUCOSE POC LAB TO COLLECT [POC] QIDACANDBED 11/27/16 11:30 GLUCOSE POC LAB TO COLLECT [POC] QIDACANDBED 11/27/16 16:30 GLUCOSE POC LAB TO COLLECT [POC] QIDACANDBED 11/27/16 21:00 GLUCOSE POC LAB TO COLLECT [POC] QIDACANDBED 11/28/16 07:30 GLUCOSE POC LAB TO COLLECT [POC] QIDACANDBED 11/28/16 11:30 GLUCOSE POC LAB TO COLLECT [POC] QIDACANDBED 11/28/16 16:30 GLUCOSE POC LAB TO COLLECT [POC] QIDACANDBED 11/28/16 21:00 GLUCOSE POC LAB TO COLLECT [POC] QIDACANDBED 11/29/16 07:30 GLUCOSE POC LAB TO COLLECT [POC] QIDACANDBED 11/29/16 11:30 GLUCOSE POC LAB TO COLLECT [POC] QIDACANDBED 11/29/16 16:30 GLUCOSE POC LAB TO COLLECT [POC] QIDACANDBED 11/29/16 21:00 GLUCOSE POC LAB TO COLLECT [POC] QIDACANDBED 11/30/16 07:30 GLUCOSE POC LAB TO COLLECT [POC] QIDACANDBED 11/30/16 11:30 GLUCOSE POC LAB TO COLLECT [POC] QIDACANDBED 11/30/16 16:30 GLUCOSE POC LAB TO COLLECT [POC] QIDACANDBED 11/30/16 21:00 GLUCOSE POC LAB TO COLLECT [POC] QIDACANDBED 12/01/16 07:30 GLUCOSE POC LAB TO COLLECT [POC] QIDACANDBED 12/01/16 11:30 GLUCOSE POC LAB TO COLLECT [POC] QIDACANDBED 12/01/16 16:30 GLUCOSE POC LAB TO COLLECT [POC] QIDACANDBED 12/01/16 21:00 GLUCOSE POC LAB TO COLLECT [POC] QIDACANDBED 12/02/16 07:30 GLUCOSE POC LAB TO COLLECT [POC] QIDACANDBED 12/02/16 11:30 GLUCOSE POC LAB TO COLLECT [POC] QIDACANDBED 12/02/16 16:30 GLUCOSE POC LAB TO COLLECT [POC] QIDACANDBED 12/02/16 21:00 GLUCOSE POC LAB TO COLLECT [POC] QIDACANDBED 12/03/16 07:30 GLUCOSE POC LAB TO COLLECT [POC] QIDACANDBED 12/03/16 11:30 GLUCOSE POC LAB TO COLLECT [POC] QIDACANDBED 12/03/16 16:30 GLUCOSE POC LAB TO COLLECT [POC] QIDACANDBED 12/03/16 21:00 GLUCOSE POC LAB TO COLLECT [POC] QIDACANDBED 12/04/16 07:30 GLUCOSE POC LAB TO COLLECT [POC] QIDACANDBED 12/04/16 11:30 GLUCOSE POC LAB TO COLLECT [POC] QIDACANDBED 12/04/16 16:30 GLUCOSE POC LAB TO COLLECT [POC] QIDACANDBED Plan: ASSESSMENT AND RECOMMENDATIONS LEFT HUMERUS FRACTURE-to undergo surgical repair tomorrow morning by Dr. Koby Frias -Postoperative cares per Dr. Frias SEVERE CORONARY ARTERY DISEASE-he has been told by cardiology that he is not a candidate for any further intervention. He has symptoms of stable angina at mild to moderate levels of exertion. -Patient and are aware that he is at increased risk for surgery because of his coronary artery disease -Continue outpatient medical management CONGESTIVE HEART FAILURE-well compensated on current therapy -Continue outpatient medical management TYPE 2 DIABETES MELLITUS -Continue usual dose of long-acting insulin -Hold usual short acting insulins -4 times a day glucometers -Moderate dose sliding scale NovoLog CHRONIC KIDNEY DISEASE STAGE III -Closely monitor urine output and renal function during hospital stay HYPERTENSION-recent history of elevated blood pressures -Monitor blood pressure during hospital stay -Consider additional antihypertensive therapy if blood pressures are elevated on a regular basis DEMENTIA-history of delirium and agitation during previous hospitalizations -Melatonin 9 mg by mouth daily at bedtime -Valproic acid 250 mg by mouth twice a day -Continue outpatient medical therapy Requesting Provider: RAVEN Date Consult Requested: 11/23/16 Reason for Consult: Medical management prior to and after surgery
[2016-11-23] MEDS ORDERED: Insulin Aspart 100 Units/ML 3 ML Pen ONE (18:03)
[2016-11-23] MEDS: Insulin Aspart 100 Units/ML 3 ML Pen SUBCUT SCH ×2 (18:07→21:25)
[2016-11-23] MEDS ORDERED: cycloSPORINE Ophth Drops U/D Box of 30 EYEBOTH SCH (21:00)
[2016-11-23] MEDS ORDERED: RANOLAZINE 500 MG PO SCH (21:00)
[2016-11-23] MEDS: Melatonin 3 MG Tab PO SCH ×2 (21:23→21:24)
[2016-11-23] MEDS: Insulin Detemir 100 Units/ML 3 ML Pen SUBCUT SCH (21:24)
[2016-11-23] MEDS: Carvedilol 3.125 MG Tab PO SCH (21:24)
[2016-11-23] MEDS: Valproic Acid 250 MG Cap PO SCH (21:29)
[2016-11-24] MEDS: Lactated Ringers 500 ML IV SCH (06:45)
[2016-11-24] MEDS ORDERED: 50% Dextrose in Water 50 ML Syringe IVPUSH ONE (06:47)
[2016-11-24] MEDS ORDERED: Bupivacaine 0.5% 50 ML MDV ONE (06:58)
[2016-11-24] MEDS ORDERED: Lactated Ringers 1,000 ML IV SCH (07:00)
[2016-11-24] MEDS ORDERED: Bupivacaine 0.5% 30 ML SDV ONE (07:08)
[2016-11-24] MEDS ORDERED: Lidocaine 1% 2 ML ONE (07:09)
[2016-11-24] MEDS ORDERED: Midazolam 1 MG/ML 2 ML SDV ONE (07:13)
[2016-11-24] MEDS ORDERED: fentaNYL 100 MCG/2 ML SDV ONE (07:13)
[2016-11-24] MEDS ORDERED: Propofol 200 MG/20 ML SDV ONE (07:13)
[2016-11-24] MEDS: Tiotropium Inhaler 18 MCG Inhalation Powder Cap Kit of 5 INH SCH (08:05)
[2016-11-24] MEDS ORDERED: Sodium Chloride 0.9% 20 ML ONE (08:17)
[2016-11-24] MEDS ORDERED: ceFAZolin 1 GM Vial ONE (08:20)
[2016-11-24] MEDS ORDERED: Povidone-Iodine 10% Soln 118.25 ML Bottle ONE (08:20)
[2016-11-24] MEDS ORDERED: Tiotropium Inhaler 18 MCG Inhalation Powder Cap Kit of 5 INH SCH (09:00)
[2016-11-24] MEDS ORDERED: Glycopyrrolate 0.2 MG/ML 5 ML MDV ONE (09:31)
[2016-11-24] MEDS ORDERED: ceFAZolin 2 GM in Premix Bag 1 BAG IV SCH (10:00)
[2016-11-24] MEDS: Insulin Aspart 100 Units/ML 3 ML Pen SUBCUT SCH ×3 (11:26→21:07)
[2016-11-24] MEDS: cycloSPORINE Ophth Drops U/D Box of 30 EYEBOTH SCH ×2 (11:29→21:05)
[2016-11-24] MEDS: RANEXA 500 MG PO SCH ×2 (11:29→21:04)
[2016-11-24] MEDS: Isosorbide Mononitrate 30 MG Tab.ER PO SCH (11:30)
[2016-11-24] MEDS: Aspirin 81 MG Tab.EC PO SCH (11:31)
[2016-11-24] MEDS: Tamsulosin 0.4 MG Cap.ER PO SCH (11:31)
[2016-11-24] MEDS: Carvedilol 3.125 MG Tab PO SCH ×2 (11:31→21:05)
[2016-11-24] MEDS: ceFAZolin 2 GM in Sodium Chloride 0.9% 50 ML IV SCH ×2 (15:16→23:19)
[2016-11-24] MEDS: Divalproex Sodium Delayed-Release 250 MG Tab.CR PO SCH ×2 (15:16→16:54)
[2016-11-24] MEDS: Valproic Acid 250 MG Cap PO SCH (15:27)
--- NOTE | 2016-11-24 15:39 | PCM.CONSN ---
- General Info Date of Service: 11/24/16 Functional Status: Reports: Pain Controlled, Tolerating Diet - Review of Systems General: Reports: Weakness. Denies: Fever, Chills Cardiovascular: Reports: No Symptoms Gastrointestinal: Reports: No Symptoms Genitourinary: Reports: No Symptoms Systems Review Comment:: Mr. Bui is status post surgical repair of his left humerus fracture earlier today by Dr. Koby Frias. He has been stable during the immediate postoperative period, denies symptoms of chest pain or pressure, there is been no nausea or vomiting. Vital signs have been stable and he has remained afebrile. - Patient Data Vitals - Most Recent: Last Vital Signs Temp 96 F 11/24/16 15:12 Pulse 60 11/24/16 15:12 Resp 16 11/24/16 15:12 BP 117/71 11/24/16 15:12 Pulse Ox 96 11/24/16 15:12 Weight - Most Recent: 172 lb 0.004 oz I&O - Last 24 Hours: Intake & Output 11/24/16 11/24/16 11/24/16 06:59 14:59 22:59 Intake Total 2400 Output Total 2200 Balance 200 Lab Results Last 24 Hours: Laboratory Results - last 24 hr 11/24/16 11/24/16 Range/Units 04:55 04:55 WBC 7.8 (4.5-11.0) K/uL RBC 3.17 L (4.30-5.90) M/uL Hgb 10.1 L (12.0-15.0) g/dL Hct 31.3 L (40.0-54.0) % MCV 99 H (80-98) fL MCH 32 H (27-31) pg MCHC 32 (32-36) % Plt Count 261 (150-400) K/uL Neut % (Auto) 64 (36-66) % Lymph % (Auto) 20 L (24-44) % [place] % (Auto) 11 H (2-6) % Eos % (Auto) 3 (2-4) % Baso % (Auto) 1 (0-1) % Sodium 144 (140-148) mmol/L Potassium 3.9 (3.6-5.2) mmol/L Chloride 109 H (100-108) mmol/L Carbon Dioxide 30 (21-32) mmol/L Anion Gap 8.9 (5.0-14.0) mmol/L BUN 34 H (7-18) mg/dL Creatinine 1.5 H (0.8-1.3) mg/dL Est Cr Clr Drug Dosing 37.18 mL/min Estimated GFR (MDRD) 44 L (>60) Glucose 59 L (74-106) mg/dL Calcium 8.2 L (8.5-10.1) mg/dL Med Orders - Current: Current Medications Aspirin (Halfprin) 81 mg PO DAILY [facility] Last Admin: 11/24/16 11:31 Dose: 81 mg Carvedilol (Coreg) 3.125 mg PO BID [facility] Last Admin: 11/24/16 11:31 Dose: 3.125 mg Cyclosporine (Restasis) 1 each EYEBOTH BID [facility] Last Admin: 11/24/16 11:29 Dose: 1 drop Dextrose (Glutose 15) 15 gm PO ONETIME PRN PRN Reason: Hypoglycemia Dextrose/Water (Dextrose 50% In Water) 50 ml IV ONETIME PRN PRN Reason: Hypoglycemia Divalproex Sodium (Divalproex Sodium) 250 mg PO BIDMEALS [facility] Last Admin: 11/24/16 15:16 Dose: 250 mg Furosemide (Lasix) 20 mg PO DAILY PRN PRN Reason: Edema Hydroxyzine HCl (Vistaril) 100 mg IM Q6H PRN PRN Reason: Nausea/Vomiting Last Admin: 11/24/16 01:27 Dose: 100 mg Cefazolin Sodium 2 gm/ Sodium (Chloride) 50 mls @ 100 mls/hr IV Q8H [facility] Stop: 11/25/16 08:29 Last Admin: 11/24/16 15:16 Dose: 100 mls/hr Insulin Aspart (Novolog) 0 unit SUBCUT QID [facility] PRN Reason: Protocol Last Admin: 11/24/16 11:26 Dose: Not Given Insulin Detemir (Levemir) 10 unit SUBCUT 2100 [facility] Last Admin: 11/23/16 21:24 Dose: 10 units Isosorbide Mononitrate (Imdur) 60 mg PO DAILY [facility] Last Admin: 11/24/16 11:30 Dose: 60 mg Melatonin (Melatonin) 9 mg PO BEDTIME [facility] Last Admin: 11/23/16 21:24 Dose: Not Given Morphine Sulfate (Morphine) 2 mg IVPUSH Q2H PRN PRN Reason: Pain (severe 7-10) Ondansetron HCl (Zofran) 4 mg IV Q6H PRN PRN Reason: Nausea/Vomiting Ranexa 500mg Tab ( (Ptom)) 0 each PO BID [facility] Last Admin: 11/24/16 11:29 Dose: 1 each Rivastigmine (Exelon) 1.5 mg PO BIDM [facility] Last Admin: 11/24/16 11:32 Dose: 1.5 mg Rosuvastatin Calcium (Crestor) 5 mg PO MoWeFr@2100 [facility] Sodium Chloride (Saline Flush) 10 ml FLUSH ASDIRECTED PRN PRN Reason: Keep Vein Open Tamsulosin HCl (Flomax) 0.4 mg PO DAILY [facility] Last Admin: 11/24/16 11:31 Dose: 0.4 mg Tiotropium Agenda (Spiriva Handihaler) 18 mcg INH DAILYRT [facility] Last Admin: 11/24/16 08:05 Dose: Not Given Discontinued Medications Bupivacaine HCl (Marcaine 0.5%) Confirm Administered Dose 50 ml .ROUTE .STK-MED ONE Stop: 11/24/16 06:59 Last Admin: 11/24/16 09:15 Dose: 30 ml Bupivacaine HCl (Marcaine 0.5%) Confirm Administered Dose 60 ml .ROUTE .STK-MED ONE Stop: 11/24/16 07:09 Cefazolin Sodium (Ancef) Confirm Administered Dose 2 gm .ROUTE .STK-MED ONE Stop: 11/24/16 08:21 Cyclosporine (Restasis) 1 each EYEBOTH BID [facility] Last Admin: 11/23/16 21:29 Dose: Not Given Dextrose/Water (Dextrose 50% In Water) 50 ml IVPUSH ONETIME ONE Stop: 11/24/16 06:48 Last Admin: 11/24/16 07:05 Dose: 50 ml Fentanyl (Sublimaze) Confirm Administered Dose 100 mcg .ROUTE .STK-MED ONE Stop: 11/24/16 07:14 Glycopyrrolate (Robinul) Confirm Administered Dose 1 mg .ROUTE .STK-MED ONE Stop: 11/24/16 09:32 Lactated Ringer's (Ringers, Lactated) 500 mls @ 150 mls/hr IV .BOLUS [facility] Last Infusion: 11/23/16 16:50 Dose: Infused Lactated Ringer's (Ringers, Lactated) 1,000 mls @ 100 mls/hr IV ASDIRECTED [facility] Last Admin: 11/24/16 07:03 Dose: 100 mls/hr Lidocaine HCl (Xylocaine-Mpf 1%) Confirm Administered Dose 2 mls @ as directed .ROUTE .STK-MED ONE Stop: 11/24/16 07:10 Sodium Chloride (Normal Saline) Confirm Administered Dose 20 mls @ as directed .ROUTE .STK-MED ONE Stop: 11/24/16 08:18 Insulin Aspart (Novolog) Confirm Administered Dose 300 unit .ROUTE .STK-MED ONE Stop: 11/23/16 18:04 Last Admin: 11/23/16 18:10 Dose: Not Given Midazolam HCl (Versed 1 Mg/Ml) Confirm Administered Dose 2 mg .ROUTE .STK-MED ONE Stop: 11/24/16 07:14 Povidone Iodine (Betadine 10% Soln) Confirm Administered Dose 1 ml .ROUTE .STK- MED ONE Stop: 11/24/16 08:21 Propofol (Diprivan 20 Ml) Confirm Administered Dose 200 mg .ROUTE .STK-MED ONE Stop: 11/24/16 07:14 Valproic Acid (Depakene) 250 mg PO BID [facility] Last Admin: 11/24/16 15:27 Dose: Not Given - Exam Quality Assessment: Urine Catheter General: Sedated Lungs: Clear to Auscultation, Normal Respiratory Effort Cardiovascular: Regular Rate, Regular Rhythm, No Murmurs GI/Abdominal Exam: Normal Bowel Sounds, Soft, Non-Tender, No Distention Consult PN Assessment/Plan Procedures: Procedures AIRWAY INHALATION TREATMENT (08/26/16) ASSAY OF LACTIC ACID (08/18/16) ASSAY OF MAGNESIUM (08/26/16) ASSAY OF NATRIURETIC PEPTIDE (08/26/16) ASSAY OF TROPONIN QUANT (08/26/16) BLOOD CULTURE FOR BACTERIA (08/26/16) BLOOD GASES ANY COMBINATION (08/26/16) CARDIAC REHAB/MONITOR (03/03/13) CARDIOVASCULAR STRESS TEST (09/03/13) CARDIOVASCULAR STRESS TEST (09/03/13) CHEST X-RAY 2VW FRONTAL&LATL (08/26/16) COMPLETE CBC W/AUTO DIFF WBC (08/26/16) COMPREHEN METABOLIC PANEL (08/26/16) CT HEAD/BRAIN W/O DYE (08/18/16) CT NECK SPINE W/O DYE (10/15/15) CT THORAX W/O DYE (11/07/16) CT UPPER EXTREMITY W/O DYE (11/07/16) ELECTROCARDIOGRAM REPORT (10/15/15) ELECTROCARDIOGRAM TRACING (08/18/16) EMERGENCY DEPT VISIT (11/07/16) EMERGENCY DEPT VISIT (08/26/16) EMERGENCY DEPT VISIT (10/15/15) EMERGENCY DEPT VISIT (10/15/15) EVALUATE PT USE OF INHALER (08/26/16) GLUCOSE BLOOD TEST (08/26/16) HT MUSCLE IMAGE SPECT MULT (09/03/13) INFLUENZA ASSAY W/OPTIC (08/18/16) MEASURE BLOOD OXYGEN LEVEL (08/26/16) METABOLIC PANEL TOTAL CA (08/26/16) MICROBE SUSCEPTIBLE DEDRICK (08/18/16) PROTHROMBIN TIME (08/18/16) PT EVAL MOD COMPLEX 30 MIN (08/26/16) ROUTINE VENIPUNCTURE (08/26/16) THER/PROPH/DIAG INJ IV PUSH (11/07/16) THER/PROPH/DIAG INJ SC/IM (11/07/16) THROMBOPLASTIN TIME PARTIAL (08/18/16) TTE W/DOPPLER COMPLETE (01/10/16) UPR/L XTREMITY ART 2 LEVELS (07/09/14) URINALYSIS AUTO W/SCOPE (08/18/16) URINE BACTERIA CULTURE (08/18/16) URINE CULTURE/COLONY COUNT (08/18/16) WITHDRAWAL OF ARTERIAL BLOOD (08/26/16) X-RAY EXAM OF ELBOW (11/07/16) Problem List Initiated/Reviewed/Updated: Yes My Orders Last 24 Hours: My Active Orders 11/23/16 17:35 Furosemide [Lasix] 20 mg PO DAILY PRN 11/23/16 17:37 Blood Glucose Check, Bedside [RC] QIDACANDBED Diabetes Education [RC] Click to Edit Notify Provider [RC] PRN Dextrose 50% in Water 50 ml IV ONETIME PRN Dextrose [Glutose 15] 15 gm PO ONETIME PRN 11/23/16 17:38 Communication Order [RC] ASDIRECTED 11/23/16 18:00 Melatonin 9 mg PO BEDTIME 11/23/16 21:00 Carvedilol [Coreg] 3.125 mg PO BID Insulin Detemir [Levemir] 10 unit SUBCUT 209911/23/16 22:00 Insulin Aspart [NovoLOG] See Protocol SUBCUT QID 11/24/16 07:30 Tiotropium [Spiriva HandiHaler] 18 mcg INH DAILYRT 11/24/16 08:00 Rivastigmine [Exelon] 1.5 mg PO BIDM 11/24/16 09:00 Aspirin [Halfprin] 81 mg PO DAILY Isosorbide Mononitrate [Imdur] 60 mg PO DAILY Patient's Own Medication [Ptom] 0 each PO BID Tamsulosin [Flomax] 0.4 mg PO DAILY cycloSPORINE [Restasis] 1 each EYEBOTH BID 11/24/16 14:15 Divalproex Sodium 250 mg PO BIDMEALS 11/24/16 15:36 Convert IV to Saline Lock [OM.PC] Routine 11/24/16 16:30 GLUCOSE POC LAB TO COLLECT [POC] QIDACANDBED 11/24/16 21:00 GLUCOSE POC LAB TO COLLECT [POC] QIDACANDBED Rosuvastatin [Crestor] 5 mg PO MoWeFr@2100 11/25/16 05:00 BASIC METABOLIC PANEL,BMP [CHEM] Timed CBC WITH AUTO DIFF [HEME] Timed 11/25/16 07:30 GLUCOSE POC LAB TO COLLECT [POC] QIDACANDBED 11/25/16 11:30 GLUCOSE POC LAB TO COLLECT [POC] QIDACANDBED 11/25/16 16:30 GLUCOSE POC LAB TO COLLECT [POC] QIDACANDBED 11/25/16 21:00 GLUCOSE POC LAB TO COLLECT [POC] QIDACANDBED 11/26/16 07:30 GLUCOSE POC LAB TO COLLECT [POC] QIDACANDBED 11/26/16 11:30 GLUCOSE POC LAB TO COLLECT [POC] QIDACANDBED 11/26/16 16:30 GLUCOSE POC LAB TO COLLECT [POC] QIDACANDBED 11/26/16 21:00 GLUCOSE POC LAB TO COLLECT [POC] QIDACANDBED 11/27/16 07:30 GLUCOSE POC LAB TO COLLECT [POC] QIDACANDBED 11/27/16 11:30 GLUCOSE POC LAB TO COLLECT [POC] QIDACANDBED 11/27/16 16:30 GLUCOSE POC LAB TO COLLECT [POC] QIDACANDBED 11/27/16 21:00 GLUCOSE POC LAB TO COLLECT [POC] QIDACANDBED 11/28/16 07:30 GLUCOSE POC LAB TO COLLECT [POC] QIDACANDBED 11/28/16 11:30 GLUCOSE POC LAB TO COLLECT [POC] QIDACANDBED 11/28/16 16:30 GLUCOSE POC LAB TO COLLECT [POC] QIDACANDBED 11/28/16 21:00 GLUCOSE POC LAB TO COLLECT [POC] QIDACANDBED 11/29/16 07:30 GLUCOSE POC LAB TO COLLECT [POC] QIDACANDBED 11/29/16 11:30 GLUCOSE POC LAB TO COLLECT [POC] QIDACANDBED 11/29/16 16:30 GLUCOSE POC LAB TO COLLECT [POC] QIDACANDBED 11/29/16 21:00 GLUCOSE POC LAB TO COLLECT [POC] QIDACANDBED 11/30/16 07:30 GLUCOSE POC LAB TO COLLECT [POC] QIDACANDBED 11/30/16 11:30 GLUCOSE POC LAB TO COLLECT [POC] QIDACANDBED 11/30/16 16:30 GLUCOSE POC LAB TO COLLECT [POC] QIDACANDBED 11/30/16 21:00 GLUCOSE POC LAB TO COLLECT [POC] QIDACANDBED 12/01/16 07:30 GLUCOSE POC LAB TO COLLECT [POC] QIDACANDBED 12/01/16 11:30 GLUCOSE POC LAB TO COLLECT [POC] QIDACANDBED 12/01/16 16:30 GLUCOSE POC LAB TO COLLECT [POC] QIDACANDBED 12/01/16 21:00 GLUCOSE POC LAB TO COLLECT [POC] QIDACANDBED 12/02/16 07:30 GLUCOSE POC LAB TO COLLECT [POC] QIDACANDBED 12/02/16 11:30 GLUCOSE POC LAB TO COLLECT [POC] QIDACANDBED 12/02/16 16:30 GLUCOSE POC LAB TO COLLECT [POC] QIDACANDBED 12/02/16 21:00 GLUCOSE POC LAB TO COLLECT [POC] QIDACANDBED 12/03/16 07:30 GLUCOSE POC LAB TO COLLECT [POC] QIDACANDBED 12/03/16 11:30 GLUCOSE POC LAB TO COLLECT [POC] QIDACANDBED 12/03/16 16:30 GLUCOSE POC LAB TO COLLECT [POC] QIDACANDBED 12/03/16 21:00 GLUCOSE POC LAB TO COLLECT [POC] QIDACANDBED 12/04/16 07:30 GLUCOSE POC LAB TO COLLECT [POC] QIDACANDBED 12/04/16 11:30 GLUCOSE POC LAB TO COLLECT [POC] QIDACANDBED 12/04/16 16:30 GLUCOSE POC LAB TO COLLECT [POC] QIDACANDBED Plan: ASSESSMENT AND RECOMMENDATIONS LEFT HUMERUS FRACTURE-status post surgical repair earlier today by Dr. Frias -Postoperative cares per Dr. Frias SEVERE CORONARY ARTERY DISEASE-he has been told by cardiology that he is not a candidate for any further intervention. He has symptoms of stable angina at mild to moderate levels of exertion. Stable postoperatively, denies any symptoms of chest pain or pressure -Patient and are aware that he is at increased risk for surgery because of his coronary artery disease -Continue outpatient medical management CONGESTIVE HEART FAILURE-well compensated on current therapy -Continue outpatient medical management TYPE 2 DIABETES MELLITUS -Continue usual dose of long-acting insulin -Hold usual short acting insulins -4 times a day glucometers -Moderate dose sliding scale NovoLog CHRONIC KIDNEY DISEASE STAGE III -Closely monitor urine output and renal function during hospital stay HYPERTENSION-recent history of elevated blood pressures -Monitor blood pressure during hospital stay -Consider additional antihypertensive therapy if blood pressures are elevated on a regular basis DEMENTIA-history of delirium and agitation during previous hospitalizations -Melatonin 9 mg by mouth daily at bedtime -Depakote 250 mg by mouth twice a day -Continue outpatient medical therapy
[2016-11-24] MEDS: Morphine 2 MG/ML Syringe IVPUSH PRN (16:02)
--- NOTE | 2016-11-24 18:36 | OR ---
DATE OF PROCEDURE: 11/24/2016 PREOPERATIVE DIAGNOSIS: Left proximal humerus fracture, closed. POSTOPERATIVE DIAGNOSIS: Left proximal humerus fracture, closed. PROCEDURE: Open reduction and internal fixation of left proximal humerus fracture. ANESTHESIA: Interscalene block plus conscious sedation. FLUID: Lactated Ringer solution. ESTIMATED BLOOD LOSS: 100 mL. COMPLICATIONS: None. SPECIMEN: None. DISCHARGE DISPOSITION: Stable to PACU. INDICATIONS FOR THE PROCEDURE: The patient was seen preoperatively in clinic. He had a left proximal humerus fracture which was minimally displaced. We tried nonoperative treatment, however on followup, he had completely displaced and his shaft was starting to medialize and I was worried about skin breakthrough. Risks and benefits of the procedure were explained to the patient. Informed consent was obtained. DETAILS OF PROCEDURE: The patient was admitted the night before. He was seen this morning and the operative site was marked. He was brought to the operative suite, and the anesthesia staff performed an interscalene block. He was then given some conscious sedation and a sterile Patel catheter was placed. He was placed into a beach chair position. All extremities found to be well padded. The left upper extremity was then prepped and draped in a sterile manner. Time-out was called identifying the correct patient, correct procedure, the correct site, and antibiotics had begun with appropriate period of time. An incision was made just medial to the coracoid distally, distal to the deltoid insertion and carried down to the deep fascia. Bleeding was controlled with Bovie electrocautery as well as Aquamantys unit. I then identified the deltopectoral interval. The cephalic vein was not visualized during the procedure. I then used blunt dissection with laps to visualize the anterior capsule at fracture site. I then used Metzenbaum to go through the capsule and released in line with the biceps tendon almost with insertion on the glenoid. We then released the deltoid fibers superiorly and medially. I spent a great deal of time getting some soft tissue which was the beginning of callus formation and fibrous tissue , out of the site cleaned up the fracture edges and then cleared up some soft tissue from the plate. I used two K-wires on the proximal fragment to use as a joystick for reduction. We then placed a small Synthes proximal humeral locking plate and then used a guidewire to measure this tuberosity after we reduced it. We then used multiple K-wires with locking guide to attach the 2 fragments together and then we placed a distal cortical screw to hold the distal fragment and then placed multiple locking screws proximally. After this had been accomplished, we then replaced the remainder of our lockers and then I placed a locking screw through the near cortex on the 2nd screw from the bottom of the plate. After all the screws were placed, I then took final films and this showed very good reduction and alignment. I then replaced the 10-mm locker with a cortical screw and then angled it up to get the proximal fragment for increased stability. We then copiously irrigated with Betadine infused irrigation followed by more irrigation, followed by deep musculature, the sutures with a #1 Stratafix, followed by deep subcu with a #2 Stratafix, followed by betty, followed by 4x4 sponges and Medipore tape. The patient was then taken in his hospital bed to the PACU in stable condition. Joby Frias DO /[id number] SHY
[2016-11-24] MEDS ORDERED: Rosuvastatin 10 MG Tab PO SCH (21:00)
[2016-11-24] MEDS ORDERED: Sodium Chloride 0.9% 500 ML IV ONE (21:02)
[2016-11-24] MEDS: Melatonin 3 MG Tab PO SCH (21:04)
[2016-11-24] MEDS: Insulin Detemir 100 Units/ML 3 ML Pen SUBCUT SCH (21:06)
[2016-11-25] MEDS: Morphine 2 MG/ML Syringe IVPUSH PRN (03:28)
[2016-11-25] MEDS: Insulin Aspart 100 Units/ML 3 ML Pen SUBCUT SCH ×4 (06:25→20:56)
[2016-11-25] MEDS: Tiotropium Inhaler 18 MCG Inhalation Powder Cap Kit of 5 INH SCH (08:00)
[2016-11-25] MEDS: Divalproex Sodium Delayed-Release 250 MG Tab.CR PO SCH ×2 (08:27→17:02)
[2016-11-25] MEDS: Tamsulosin 0.4 MG Cap.ER PO SCH (08:28)
[2016-11-25] MEDS: Carvedilol 3.125 MG Tab PO SCH ×2 (08:28→20:54)
[2016-11-25] MEDS: Aspirin 81 MG Tab.EC PO SCH (08:28)
[2016-11-25] MEDS: RANEXA 500 MG PO SCH ×2 (08:29→21:03)
[2016-11-25] MEDS: cycloSPORINE Ophth Drops U/D Box of 30 EYEBOTH SCH ×2 (08:29→21:04)
[2016-11-25] MEDS: Isosorbide Mononitrate 30 MG Tab.ER PO SCH (08:29)
[2016-11-25] MEDS ORDERED: Insulin Aspart 100 Units/ML 3 ML Pen SUBCUT ONE (08:38)
[2016-11-25] MEDS: ceFAZolin 2 GM in Sodium Chloride 0.9% 50 ML IV SCH (09:22)
[2016-11-25] MEDS: Ferrous Sulfate 325 MG Tab PO SCH ×2 (09:22→17:03)
[2016-11-25] MEDS: Lactated Ringers 1,000 ML IV SCH ×2 (13:45→22:11)
--- NOTE | 2016-11-25 15:19 | PCM.CONSN ---
- General Info Date of Service: 11/25/16 Functional Status: Reports: Pain Controlled, Tolerating Diet - Review of Systems General: Reports: Weakness. Denies: Fever, Chills Pulmonary: Reports: No Symptoms Cardiovascular: Reports: No Symptoms Gastrointestinal: Reports: No Symptoms Systems Review Comment:: Mr. Bui is been noted to have somewhat low urine output over the last 24 hours, this does seem to have responded to fluid boluses. Pain control is been adequate and he is not experiencing significant chest pain or pressure, shortness of breath, nausea or vomiting. Glucose levels have been trending somewhat high, renal function has been stable. Blood pressure lower than normal , vital signs have otherwise been stable and he has remained afebrile. - Patient Data Vitals - Most Recent: Last Vital Signs Temp 98.1 F 11/25/16 10:58 Pulse 65 11/25/16 10:58 Resp 16 11/25/16 10:58 BP 137/67 11/25/16 10:58 Pulse Ox 98 11/25/16 10:58 Weight - Most Recent: 172 lb 0.004 oz I&O - Last 24 Hours: Intake & Output 11/25/16 11/25/16 11/25/16 06:59 14:59 22:59 Intake Total 555 530 Output Total 256 225 Balance 299 305 Lab Results Last 24 Hours: Laboratory Results - last 24 hr 11/25/16 11/25/16 Range/Units 05:58 05:58 WBC 10.3 (4.5-11.0) K/uL RBC 2.60 L (4.30-5.90) M/uL Hgb 8.4 L (12.0-15.0) g/dL Hct 25.8 L (40.0-54.0) % MCV 99 H (80-98) fL MCH 32 H (27-31) pg MCHC 33 (32-36) % Plt Count 235 (150-400) K/uL Neut % (Auto) 77 H (36-66) % Lymph % (Auto) 11 L (24-44) % George % (Auto) 10 H (2-6) % Eos % (Auto) 2 (2-4) % Baso % (Auto) 0 (0-1) % Sodium 139 L (140-148) mmol/L Potassium 4.7 (3.6-5.2) mmol/L Chloride 107 (100-108) mmol/L Carbon Dioxide 27 (21-32) mmol/L Anion Gap 9.7 (5.0-14.0) mmol/L BUN 32 H (7-18) mg/dL Creatinine 1.4 H (0.8-1.3) mg/dL Est Cr Clr Drug Dosing 39.93 mL/min Estimated GFR (MDRD) 48 L (>60) Glucose 331 H (74-106) mg/dL Calcium 8.0 L (8.5-10.1) mg/dL Med Orders - Current: Current Medications Aspirin (Halfprin) 81 mg PO DAILY [facility] Last Admin: 11/25/16 08:28 Dose: 81 mg Carvedilol (Coreg) 3.125 mg PO BID [facility] Last Admin: 11/25/16 08:28 Dose: 3.125 mg Cyclosporine (Restasis) 1 each EYEBOTH BID [facility] Last Admin: 11/25/16 08:29 Dose: 1 drop Dextrose (Glutose 15) 15 gm PO ONETIME PRN PRN Reason: Hypoglycemia Dextrose/Water (Dextrose 50% In Water) 50 ml IV ONETIME PRN PRN Reason: Hypoglycemia Divalproex Sodium (Divalproex Sodium) 250 mg PO BIDMEALS [facility] Last Admin: 11/25/16 08:27 Dose: 250 mg Ferrous Sulfate (Ferrous Sulfate) 325 mg PO BIDMEALS [facility] Last Admin: 11/25/16 09:22 Dose: 325 mg Furosemide (Lasix) 20 mg PO DAILY PRN PRN Reason: Edema Hydroxyzine HCl (Vistaril) 100 mg IM Q6H PRN PRN Reason: Nausea/Vomiting Last Admin: 11/24/16 01:27 Dose: 100 mg Lactated Ringer's (Ringers, Lactated) 1,000 mls @ 125 mls/hr IV ASDIRECTED [facility] Last Admin: 11/25/16 13:45 Dose: 125 mls/hr Insulin Aspart (Novolog) 0 unit SUBCUT QID [facility] PRN Reason: Protocol Last Admin: 11/25/16 11:49 Dose: 8 units Insulin Detemir (Levemir) 16 unit SUBCUT 2100 [facility] Isosorbide Mononitrate (Imdur) 60 mg PO DAILY [facility] Last Admin: 11/25/16 08:29 Dose: 60 mg Melatonin (Melatonin) 9 mg PO BEDTIME [facility] Last Admin: 11/24/16 21:04 Dose: 9 mg Morphine Sulfate (Morphine) 2 mg IVPUSH Q2H PRN PRN Reason: Pain (severe 7-10) Last Admin: 11/25/16 03:28 Dose: 2 mg Ondansetron HCl (Zofran) 4 mg IV Q6H PRN PRN Reason: Nausea/Vomiting Ranexa 500mg Tab ( (Ptom)) 0 each PO BID [facility] Last Admin: 11/25/16 08:29 Dose: 1 each Rivastigmine (Exelon) 1.5 mg PO BIDM [facility] Last Admin: 11/25/16 08:27 Dose: 1.5 mg Rosuvastatin Calcium (Crestor) 5 mg PO [id number]@2100 [facility] Last Admin: 11/24/16 21:06 Dose: 5 mg Sodium Chloride (Saline Flush) 10 ml FLUSH ASDIRECTED PRN PRN Reason: Keep Vein Open Tamsulosin HCl (Flomax) 0.4 mg PO DAILY [facility] Last Admin: 11/25/16 08:28 Dose: 0.4 mg Tiotropium [place] (Spiriva Handihaler) 18 mcg INH DAILYRT [facility] Last Admin: 11/25/16 08:00 Dose: 18 mcg Discontinued Medications Bupivacaine HCl (Marcaine 0.5%) Confirm Administered Dose 50 ml .ROUTE .STK-MED ONE Stop: 11/24/16 06:59 Last Admin: 11/24/16 09:15 Dose: 30 ml Bupivacaine HCl (Marcaine 0.5%) Confirm Administered Dose 60 ml .ROUTE .STK-MED ONE Stop: 11/24/16 07:09 Cefazolin Sodium (Ancef) Confirm Administered Dose 2 gm .ROUTE .STK-MED ONE Stop: 11/24/16 08:21 Cyclosporine (Restasis) 1 each EYEBOTH BID [facility] Last Admin: 11/23/16 21:29 Dose: Not Given Dextrose/Water (Dextrose 50% In Water) 50 ml IVPUSH ONETIME ONE Stop: 11/24/16 06:48 Last Admin: 11/24/16 07:05 Dose: 50 ml Fentanyl (Sublimaze) Confirm Administered Dose 100 mcg .ROUTE .STK-MED ONE Stop: 11/24/16 07:14 Glycopyrrolate (Robinul) Confirm Administered Dose 1 mg .ROUTE .STK-MED ONE Stop: 11/24/16 09:32 Lactated Ringer's (Ringers, Lactated) 500 mls @ 150 mls/hr IV .BOLUS [facility] Last Infusion: 11/23/16 16:50 Dose: Infused Lactated Ringer's (Ringers, Lactated) 1,000 mls @ 100 mls/hr IV ASDIRECTED [facility] Last Admin: 11/24/16 07:03 Dose: 100 mls/hr Cefazolin Sodium 2 gm/ Sodium (Chloride) 50 mls @ 100 mls/hr IV Q8H [facility] Stop: 11/25/16 08:29 Last Admin: 11/25/16 09:22 Dose: 100 mls/hr Lidocaine HCl (Xylocaine-Mpf 1%) Confirm Administered Dose 2 mls @ as directed .ROUTE .STK-MED ONE Stop: 11/24/16 07:10 Sodium Chloride (Normal Saline) Confirm Administered Dose 20 mls @ as directed .ROUTE .STK-MED ONE Stop: 11/24/16 08:18 Sodium Chloride (Normal Saline) 500 mls @ 250 mls/hr IV .BOLUS ONE Stop: 11/24/16 23:01 Last Admin: 11/24/16 21:16 Dose: 250 mls/hr Insulin Aspart (Novolog) Confirm Administered Dose 300 unit .ROUTE .STK-MED ONE Stop: 11/23/16 18:04 Last Admin: 11/23/16 18:10 Dose: Not Given Insulin Aspart (Novolog) 12 unit SUBCUT ONETIME ONE Stop: 11/25/16 08:39 Last Admin: 11/25/16 08:45 Dose: 12 units Insulin Detemir (Levemir) 10 unit SUBCUT 2100 [facility] Last Admin: 11/24/16 21:06 Dose: 10 units Midazolam HCl (Versed 1 Mg/Ml) Confirm Administered Dose 2 mg .ROUTE .STK-MED ONE Stop: 11/24/16 07:14 Povidone Iodine (Betadine 10% Soln) Confirm Administered Dose 1 ml .ROUTE .STK- MED ONE Stop: 11/24/16 08:21 Propofol (Diprivan 20 Ml) Confirm Administered Dose 200 mg .ROUTE .STK-MED ONE Stop: 11/24/16 07:14 Valproic Acid (Depakene) 250 mg PO BID [facility] Last Admin: 11/24/16 15:27 Dose: Not Given - Exam Quality Assessment: Urine Catheter, DVT Prophylaxis General: Alert, Cooperative, Mild Distress Lungs: Clear to Auscultation, Normal Respiratory Effort Cardiovascular: Regular Rate, Regular Rhythm, No Murmurs GI/Abdominal Exam: Normal Bowel Sounds, Soft, Non-Tender, No Distention Extremities: No Pedal Edema Skin: Warm, Dry, Intact Consult PN Assessment/Plan Procedures: Procedures AIRWAY INHALATION TREATMENT (08/26/16) ASSAY OF LACTIC ACID (08/18/16) ASSAY OF MAGNESIUM (08/26/16) ASSAY OF NATRIURETIC PEPTIDE (08/26/16) ASSAY OF TROPONIN QUANT (08/26/16) BLOOD CULTURE FOR BACTERIA (08/26/16) BLOOD GASES ANY COMBINATION (08/26/16) CARDIAC REHAB/MONITOR (03/03/13) CARDIOVASCULAR STRESS TEST (09/03/13) CARDIOVASCULAR STRESS TEST (09/03/13) CHEST X-RAY 2VW FRONTAL&LATL (08/26/16) COMPLETE CBC W/AUTO DIFF WBC (08/26/16) COMPREHEN METABOLIC PANEL (08/26/16) CT HEAD/BRAIN W/O DYE (08/18/16) CT NECK SPINE W/O DYE (10/15/15) CT THORAX W/O DYE (11/07/16) CT UPPER EXTREMITY W/O DYE (11/07/16) ELECTROCARDIOGRAM REPORT (10/15/15) ELECTROCARDIOGRAM TRACING (08/18/16) EMERGENCY DEPT VISIT (11/07/16) EMERGENCY DEPT VISIT (08/26/16) EMERGENCY DEPT VISIT (10/15/15) EMERGENCY DEPT VISIT (10/15/15) EVALUATE PT USE OF INHALER (08/26/16) GLUCOSE BLOOD TEST (08/26/16) HT MUSCLE IMAGE SPECT MULT (09/03/13) INFLUENZA ASSAY W/OPTIC (08/18/16) MEASURE BLOOD OXYGEN LEVEL (08/26/16) METABOLIC PANEL TOTAL CA (08/26/16) MICROBE SUSCEPTIBLE DEDRICK (08/18/16) PROTHROMBIN TIME (08/18/16) PT EVAL MOD COMPLEX 30 MIN (08/26/16) ROUTINE VENIPUNCTURE (08/26/16) THER/PROPH/DIAG INJ IV PUSH (11/07/16) THER/PROPH/DIAG INJ SC/IM (11/07/16) THROMBOPLASTIN TIME PARTIAL (08/18/16) TTE W/DOPPLER COMPLETE (01/10/16) UPR/L XTREMITY ART 2 LEVELS (07/09/14) URINALYSIS AUTO W/SCOPE (08/18/16) URINE BACTERIA CULTURE (08/18/16) URINE CULTURE/COLONY COUNT (08/18/16) WITHDRAWAL OF ARTERIAL BLOOD (08/26/16) X-RAY EXAM OF ELBOW (11/07/16) Problem List Initiated/Reviewed/Updated: Yes My Orders Last 24 Hours: My Active Orders 11/24/16 14:15 Divalproex Sodium 250 mg PO BIDMEALS 11/24/16 15:36 Convert IV to Saline Lock [OM.PC] Routine 11/24/16 21:00 Rosuvastatin [Crestor] 5 mg PO [id number]/25/16 08:30 Ferrous Sulfate 325 mg PO BIDMEALS 11/25/16 12:45 Lactated Ringers [Ringers, Lactated] 1,000 ml IV ASDIRECTED 11/25/16 15:13 Insulin Detemir [Levemir] 16 unit SUBCUT 209911/25/16 16:30 GLUCOSE POC LAB TO COLLECT [POC] QIDACANDBED 11/25/16 21:00 GLUCOSE POC LAB TO COLLECT [POC] QIDACANDBED 11/26/16 05:00 BASIC METABOLIC PANEL,BMP [CHEM] Timed CBC WITH AUTO DIFF [HEME] Timed 11/26/16 07:30 GLUCOSE POC LAB TO COLLECT [POC] QIDACANDBED 11/26/16 11:30 GLUCOSE POC LAB TO COLLECT [POC] QIDACANDBED 11/26/16 16:30 GLUCOSE POC LAB TO COLLECT [POC] QIDACANDBED 11/26/16 21:00 GLUCOSE POC LAB TO COLLECT [POC] QIDACANDBED 11/27/16 07:30 GLUCOSE POC LAB TO COLLECT [POC] QIDACANDBED 11/27/16 11:30 GLUCOSE POC LAB TO COLLECT [POC] QIDACANDBED 11/27/16 16:30 GLUCOSE POC LAB TO COLLECT [POC] QIDACANDBED 11/27/16 21:00 GLUCOSE POC LAB TO COLLECT [POC] QIDACANDBED 11/28/16 07:30 GLUCOSE POC LAB TO COLLECT [POC] QIDACANDBED 11/28/16 11:30 GLUCOSE POC LAB TO COLLECT [POC] QIDACANDBED 11/28/16 16:30 GLUCOSE POC LAB TO COLLECT [POC] QIDACANDBED 11/28/16 21:00 GLUCOSE POC LAB TO COLLECT [POC] QIDACANDBED 11/29/16 07:30 GLUCOSE POC LAB TO COLLECT [POC] QIDACANDBED 11/29/16 11:30 GLUCOSE POC LAB TO COLLECT [POC] QIDACANDBED 11/29/16 16:30 GLUCOSE POC LAB TO COLLECT [POC] QIDACANDBED 11/29/16 21:00 GLUCOSE POC LAB TO COLLECT [POC] QIDACANDBED 11/30/16 07:30 GLUCOSE POC LAB TO COLLECT [POC] QIDACANDBED 11/30/16 11:30 GLUCOSE POC LAB TO COLLECT [POC] QIDACANDBED 11/30/16 16:30 GLUCOSE POC LAB TO COLLECT [POC] QIDACANDBED 11/30/16 21:00 GLUCOSE POC LAB TO COLLECT [POC] QIDACANDBED 12/01/16 07:30 GLUCOSE POC LAB TO COLLECT [POC] QIDACANDBED 12/01/16 11:30 GLUCOSE POC LAB TO COLLECT [POC] QIDACANDBED 12/01/16 16:30 GLUCOSE POC LAB TO COLLECT [POC] QIDACANDBED 12/01/16 21:00 GLUCOSE POC LAB TO COLLECT [POC] QIDACANDBED 12/02/16 07:30 GLUCOSE POC LAB TO COLLECT [POC] QIDACANDBED 12/02/16 11:30 GLUCOSE POC LAB TO COLLECT [POC] QIDACANDBED 12/02/16 16:30 GLUCOSE POC LAB TO COLLECT [POC] QIDACANDBED 12/02/16 21:00 GLUCOSE POC LAB TO COLLECT [POC] QIDACANDBED 12/03/16 07:30 GLUCOSE POC LAB TO COLLECT [POC] QIDACANDBED 12/03/16 11:30 GLUCOSE POC LAB TO COLLECT [POC] QIDACANDBED 12/03/16 16:30 GLUCOSE POC LAB TO COLLECT [POC] QIDACANDBED 12/03/16 21:00 GLUCOSE POC LAB TO COLLECT [POC] QIDACANDBED 12/04/16 07:30 GLUCOSE POC LAB TO COLLECT [POC] QIDACANDBED 12/04/16 11:30 GLUCOSE POC LAB TO COLLECT [POC] QIDACANDBED 12/04/16 16:30 GLUCOSE POC LAB TO COLLECT [POC] QIDACANDBED Plan: ASSESSMENT AND RECOMMENDATIONS LEFT HUMERUS FRACTURE-status post surgical repair yesterday by Dr. Frias -Postoperative cares per Dr. Frias SEVERE CORONARY ARTERY DISEASE-he has been told by cardiology that he is not a candidate for any further intervention. He has symptoms of stable angina at mild to moderate levels of exertion. Stable postoperatively, denies any symptoms of chest pain or pressure -Continue outpatient medical management CONGESTIVE HEART FAILURE-well compensated on current therapy -Continue outpatient medical management TYPE 2 DIABETES MELLITUS-glucose levels have been trending somewhat high -Increase Levemir to 16 units subcutaneous at at bedtime -Hold usual short acting insulins -4 times a day glucometers -Moderate dose sliding scale NovoLog CHRONIC KIDNEY DISEASE STAGE III-urine output has tended to be somewhat low over the past 24 hours -Resume IV fluids, LR at 125 mg per hour -Reassess in a.m. -Closely monitor urine output and renal function during hospital stay HYPERTENSION-recent history of elevated blood pressures -Monitor blood pressure during hospital stay -Consider additional antihypertensive therapy if blood pressures are elevated on a regular basis DEMENTIA-history of delirium and agitation during previous hospitalizations -Melatonin 9 mg by mouth daily at bedtime -Depakote 250 mg by mouth twice a day -Continue outpatient medical therapy
[2016-11-25] MEDS ORDERED: Docusate Sodium 100 MG Cap PO PRN (17:51)
[2016-11-25] MEDS ORDERED: Polyethylene Glycol 3350 Powder 17 GM Packet PO PRN (17:52)
[2016-11-25] MEDS ORDERED: Bisacodyl 10 MG Supp RECTAL ONE (17:54)
[2016-11-25] MEDS: Melatonin 3 MG Tab PO SCH (20:57)
[2016-11-25] MEDS ORDERED: Insulin Detemir 100 Units/ML 3 ML Pen SUBCUT SCH (21:00)
[2016-11-26] MEDS: Lactated Ringers 1,000 ML IV SCH (06:14)
[2016-11-26] MEDS ORDERED: Bisacodyl 10 MG Supp RECTAL SCH (06:30)
[2016-11-26] MEDS: Tiotropium Inhaler 18 MCG Inhalation Powder Cap Kit of 5 INH SCH (07:36)
[2016-11-26] MEDS: Insulin Aspart 100 Units/ML 3 ML Pen SUBCUT SCH ×2 (08:35→11:37)
--- NOTE | 2016-11-26 08:54 | PCM.PN ---
- General Info Date of Service: 11/25/16 Functional Status: Reports: Pain Controlled - Review of Systems General: Reports: No Symptoms HEENT: Reports: No Symptoms Pulmonary: Reports: No Symptoms Cardiovascular: Reports: No Symptoms Gastrointestinal: Reports: No Symptoms Genitourinary: Reports: No Symptoms Musculoskeletal: Reports: No Symptoms Skin: Reports: No Symptoms Neurological: Reports: No Symptoms Psychiatric: Reports: No Symptoms - Patient Data Vitals - Most Recent: Last Vital Signs Temp 98.6 F 11/26/16 07:24 Pulse 67 11/26/16 07:24 Resp 16 11/26/16 07:24 BP 104/60 11/26/16 07:24 Pulse Ox 97 11/26/16 07:24 Weight - Most Recent: 172 lb 0.004 oz I&O - Last 24 Hours: Intake & Output 11/25/16 11/26/16 11/26/16 22:59 06:59 14:59 Intake Total 826 1225 400 Output Total 675 525 Balance 151 700 400 Lab Results Last 24 Hours: Laboratory Results - last 24 hr 11/26/16 11/26/16 Range/Units 04:20 04:20 WBC 9.3 (4.5-11.0) K/uL RBC 2.52 L (4.30-5.90) M/uL Hgb 8.1 L (12.0-15.0) g/dL Hct 24.8 L (40.0-54.0) % MCV 98 (80-98) fL MCH 32 H (27-31) pg MCHC 33 (32-36) % Plt Count 221 (150-400) K/uL Neut % (Auto) 70 H (36-66) % Lymph % (Auto) 15 L (24-44) % [place] % (Auto) 12 H (2-6) % Eos % (Auto) 3 (2-4) % Baso % (Auto) 0 (0-1) % Sodium 141 (140-148) mmol/L Potassium 3.9 (3.6-5.2) mmol/L Chloride 109 H (100-108) mmol/L Carbon Dioxide 28 (21-32) mmol/L Anion Gap 7.9 (5.0-14.0) mmol/L BUN 27 H (7-18) mg/dL Creatinine 1.1 (0.8-1.3) mg/dL Est Cr Clr Drug Dosing 50.82 mL/min Estimated GFR (MDRD) > 60 (>60) Glucose 143 H (74-106) mg/dL Calcium 7.9 L (8.5-10.1) mg/dL Med Orders - Current: Current Medications Aspirin (Halfprin) 81 mg PO DAILY [facility] Last Admin: 11/25/16 08:28 Dose: 81 mg Carvedilol (Coreg) 3.125 mg PO BID [facility] Last Admin: 11/25/16 20:54 Dose: 3.125 mg Cyclosporine (Restasis) 1 each EYEBOTH BID [facility] Last Admin: 11/25/16 21:04 Dose: 1 drop Dextrose (Glutose 15) 15 gm PO ONETIME PRN PRN Reason: Hypoglycemia Dextrose/Water (Dextrose 50% In Water) 50 ml IV ONETIME PRN PRN Reason: Hypoglycemia Divalproex Sodium (Divalproex Sodium) 250 mg PO BIDMEALS [facility] Last Admin: 11/25/16 17:02 Dose: 250 mg Docusate Sodium (Colace) 100 mg PO BID PRN PRN Reason: Constipation Ferrous Sulfate (Ferrous Sulfate) 325 mg PO BIDMEALS [facility] Last Admin: 11/25/16 17:03 Dose: 325 mg Furosemide (Lasix) 20 mg PO DAILY PRN PRN Reason: Edema Last Admin: 11/26/16 06:03 Dose: 20 mg Hydroxyzine HCl (Vistaril) 100 mg IM Q6H PRN PRN Reason: Nausea/Vomiting Last Admin: 11/24/16 01:27 Dose: 100 mg Lactated Ringer's (Ringers, Lactated) 1,000 mls @ 125 mls/hr IV ASDIRECTED [facility] Last Admin: 11/26/16 06:14 Dose: 125 mls/hr Insulin Aspart (Novolog) 0 unit SUBCUT 0730,1130,1630,2100 [facility] PRN Reason: Protocol Last Admin: 11/26/16 08:35 Dose: Not Given Insulin Detemir (Levemir) 16 unit SUBCUT BEDTIME [facility] Last Admin: 11/25/16 20:55 Dose: 16 units Isosorbide Mononitrate (Imdur) 60 mg PO DAILY [facility] Last Admin: 11/25/16 08:29 Dose: 60 mg Melatonin (Melatonin) 9 mg PO BEDTIME [facility] Last Admin: 11/25/16 20:57 Dose: 9 mg Morphine Sulfate (Morphine) 2 mg IVPUSH Q2H PRN PRN Reason: Pain (severe 7-10) Last Admin: 11/25/16 03:28 Dose: 2 mg Ondansetron HCl (Zofran) 4 mg IV Q6H PRN PRN Reason: Nausea/Vomiting Ranexa 500mg Tab ( (Ptom)) 0 each PO BID [facility] Last Admin: 11/25/16 21:03 Dose: 1 each Polyethylene Glycol (Miralax) 17 gm PO BID PRN PRN Reason: Constipation Last Admin: 11/25/16 18:46 Dose: 17 gm Rivastigmine (Exelon) 1.5 mg PO BIDM [facility] Last Admin: 11/25/16 17:03 Dose: 1.5 mg Rosuvastatin Calcium (Crestor) 5 mg PO MoWeFr@2100 [facility] Last Admin: 11/24/16 21:06 Dose: 5 mg Sodium Chloride (Saline Flush) 10 ml FLUSH ASDIRECTED PRN PRN Reason: Keep Vein Open Tamsulosin HCl (Flomax) 0.4 mg PO DAILY [facility] Last Admin: 11/25/16 08:28 Dose: 0.4 mg Tiotropium [place] (Spiriva Handihaler) 18 mcg INH DAILYRT [facility] Last Admin: 11/26/16 07:36 Dose: 18 mcg Discontinued Medications Bisacodyl (Dulcolax) 10 mg RECTAL ONETIME ONE Stop: 11/25/16 17:55 Last Admin: 11/25/16 20:32 Dose: Not Given Bisacodyl (Dulcolax) 10 mg RECTAL ASDIRECTED [facility] Stop: 11/26/16 06:31 Last Admin: 11/26/16 06:11 Dose: 10 mg Bupivacaine HCl (Marcaine 0.5%) Confirm Administered Dose 50 ml .ROUTE .STK-MED ONE Stop: 11/24/16 06:59 Last Admin: 11/24/16 09:15 Dose: 30 ml Bupivacaine HCl (Marcaine 0.5%) Confirm Administered Dose 60 ml .ROUTE .STK-MED ONE Stop: 11/24/16 07:09 Cefazolin Sodium (Ancef) Confirm Administered Dose 2 gm .ROUTE .STK-MED ONE Stop: 11/24/16 08:21 Cyclosporine (Restasis) 1 each EYEBOTH BID [facility] Last Admin: 11/23/16 21:29 Dose: Not Given Dextrose/Water (Dextrose 50% In Water) 50 ml IVPUSH ONETIME ONE Stop: 11/24/16 06:48 Last Admin: 11/24/16 07:05 Dose: 50 ml Fentanyl (Sublimaze) Confirm Administered Dose 100 mcg .ROUTE .STK-MED ONE Stop: 11/24/16 07:14 Glycopyrrolate (Robinul) Confirm Administered Dose 1 mg .ROUTE .STK-MED ONE Stop: 11/24/16 09:32 Lactated Ringer's (Ringers, Lactated) 500 mls @ 150 mls/hr IV .BOLUS [facility] Last Infusion: 11/23/16 16:50 Dose: Infused Lactated Ringer's (Ringers, Lactated) 1,000 mls @ 100 mls/hr IV ASDIRECTED [facility] Last Admin: 11/24/16 07:03 Dose: 100 mls/hr Cefazolin Sodium 2 gm/ Sodium (Chloride) 50 mls @ 100 mls/hr IV Q8H [facility] Stop: 11/25/16 08:29 Last Admin: 11/25/16 09:22 Dose: 100 mls/hr Lidocaine HCl (Xylocaine-Mpf 1%) Confirm Administered Dose 2 mls @ as directed .ROUTE .STK-MED ONE Stop: 11/24/16 07:10 Sodium Chloride (Normal Saline) Confirm Administered Dose 20 mls @ as directed .ROUTE .STK-MED ONE Stop: 11/24/16 08:18 Sodium Chloride (Normal Saline) 500 mls @ 250 mls/hr IV .BOLUS ONE Stop: 11/24/16 23:01 Last Admin: 11/24/16 21:16 Dose: 250 mls/hr Insulin Aspart (Novolog) 0 unit SUBCUT QID [facility] PRN Reason: Protocol Last Admin: 11/25/16 17:02 Dose: 6 units Insulin Aspart (Novolog) Confirm Administered Dose 300 unit .ROUTE .STK-MED ONE Stop: 11/23/16 18:04 Last Admin: 11/23/16 18:10 Dose: Not Given Insulin Aspart (Novolog) 12 unit SUBCUT ONETIME ONE Stop: 11/25/16 08:39 Last Admin: 11/25/16 08:45 Dose: 12 units Insulin Detemir (Levemir) 10 unit SUBCUT 2100 [facility] Last Admin: 11/24/16 21:06 Dose: 10 units Midazolam HCl (Versed 1 Mg/Ml) Confirm Administered Dose 2 mg .ROUTE .STK-MED ONE Stop: 11/24/16 07:14 Povidone Iodine (Betadine 10% Soln) Confirm Administered Dose 1 ml .ROUTE .STK- MED ONE Stop: 11/24/16 08:21 Propofol (Diprivan 20 Ml) Confirm Administered Dose 200 mg .ROUTE .STK-MED ONE Stop: 11/24/16 07:14 Valproic Acid (Depakene) 250 mg PO BID [facility] Last Admin: 11/24/16 15:27 Dose: Not Given - Exam General: Alert, Oriented HEENT: Pupils Equal, Pupils Reactive, EOMI, Mucous Membr. Moist/[place] Neck: Supple Extremities: Normal Inspection, Non-Tender, Normal Capillary Refill, Limited Range of Motion Peripheral Pulses: 2+: Radial (L) Skin: Warm, Dry, Intact Wound/Incisions: Healing Well, Dressing Dry and Intact, No Drainage Neurological: No New Focal Deficit Psy/Mental Status: Alert, Normal Affect, Normal Mood - Problem List Review Problem List Initiated/Reviewed/Updated: Yes - Plan Plan:: A: POD #1 orif left proximal humerus fracture P: await placement in ecf. pt/ot/pain control
[2016-11-26] MEDS: Divalproex Sodium Delayed-Release 250 MG Tab.CR PO SCH (08:57)
[2016-11-26] MEDS: Ferrous Sulfate 325 MG Tab PO SCH (08:58)
[2016-11-26] MEDS: Carvedilol 3.125 MG Tab PO SCH (09:00)
[2016-11-26] MEDS: RANEXA 500 MG PO SCH (09:01)
[2016-11-26] MEDS: Tamsulosin 0.4 MG Cap.ER PO SCH (09:01)
[2016-11-26] MEDS: Aspirin 81 MG Tab.EC PO SCH (09:01)
[2016-11-26] MEDS: cycloSPORINE Ophth Drops U/D Box of 30 EYEBOTH SCH (09:01)
[2016-11-26] MEDS: Isosorbide Mononitrate 30 MG Tab.ER PO SCH (09:01)
--- NOTE | 2016-11-26 09:03 | PCM.PN ---
- General Info Functional Status: Reports: Pain Controlled - Review of Systems General: Reports: No Symptoms HEENT: Reports: No Symptoms Pulmonary: Reports: No Symptoms Cardiovascular: Reports: No Symptoms Gastrointestinal: Reports: No Symptoms Genitourinary: Reports: No Symptoms Musculoskeletal: Reports: No Symptoms Skin: Reports: No Symptoms Neurological: Reports: No Symptoms Psychiatric: Reports: No Symptoms - Patient Data Vitals - Most Recent: Last Vital Signs Temp 98.6 F 11/26/16 07:24 Pulse 67 11/26/16 09:00 Resp 16 11/26/16 07:24 BP 104/60 11/26/16 09:01 Pulse Ox 97 11/26/16 07:24 Weight - Most Recent: 172 lb 0.004 oz I&O - Last 24 Hours: Intake & Output 11/25/16 11/26/16 11/26/16 22:59 06:59 14:59 Intake Total 826 1225 400 Output Total 675 525 Balance 151 700 400 Lab Results Last 24 Hours: Laboratory Results - last 24 hr 11/26/16 11/26/16 Range/Units 04:20 04:20 WBC 9.3 (4.5-11.0) K/uL RBC 2.52 L (4.30-5.90) M/uL Hgb 8.1 L (12.0-15.0) g/dL Hct 24.8 L (40.0-54.0) % MCV 98 (80-98) fL MCH 32 H (27-31) pg MCHC 33 (32-36) % Plt Count 221 (150-400) K/uL Neut % (Auto) 70 H (36-66) % Lymph % (Auto) 15 L (24-44) % [place] % (Auto) 12 H (2-6) % Eos % (Auto) 3 (2-4) % Baso % (Auto) 0 (0-1) % Sodium 141 (140-148) mmol/L Potassium 3.9 (3.6-5.2) mmol/L Chloride 109 H (100-108) mmol/L Carbon Dioxide 28 (21-32) mmol/L Anion Gap 7.9 (5.0-14.0) mmol/L BUN 27 H (7-18) mg/dL Creatinine 1.1 (0.8-1.3) mg/dL Est Cr Clr Drug Dosing 50.82 mL/min Estimated GFR (MDRD) > 60 (>60) Glucose 143 H (74-106) mg/dL Calcium 7.9 L (8.5-10.1) mg/dL Med Orders - Current: Current Medications Aspirin (Halfprin) 81 mg PO DAILY [facility] Last Admin: 11/26/16 09:01 Dose: 81 mg Carvedilol (Coreg) 3.125 mg PO BID [facility] Last Admin: 11/26/16 09:00 Dose: 3.125 mg Cyclosporine (Restasis) 1 each EYEBOTH BID [facility] Last Admin: 11/26/16 09:01 Dose: 1 drop Dextrose (Glutose 15) 15 gm PO ONETIME PRN PRN Reason: Hypoglycemia Dextrose/Water (Dextrose 50% In Water) 50 ml IV ONETIME PRN PRN Reason: Hypoglycemia Divalproex Sodium (Divalproex Sodium) 250 mg PO BIDMEALS [facility] Last Admin: 11/26/16 08:57 Dose: 250 mg Docusate Sodium (Colace) 100 mg PO BID PRN PRN Reason: Constipation Ferrous Sulfate (Ferrous Sulfate) 325 mg PO BIDMEALS [facility] Last Admin: 11/26/16 08:58 Dose: 325 mg Furosemide (Lasix) 20 mg PO DAILY PRN PRN Reason: Edema Last Admin: 11/26/16 06:03 Dose: 20 mg Hydroxyzine HCl (Vistaril) 100 mg IM Q6H PRN PRN Reason: Nausea/Vomiting Last Admin: 11/24/16 01:27 Dose: 100 mg Lactated Ringer's (Ringers, Lactated) 1,000 mls @ 125 mls/hr IV ASDIRECTED [facility] Last Admin: 11/26/16 06:14 Dose: 125 mls/hr Insulin Aspart (Novolog) 0 unit SUBCUT 0730,1130,1630,2100 [facility] PRN Reason: Protocol Last Admin: 11/26/16 08:35 Dose: Not Given Insulin Detemir (Levemir) 16 unit SUBCUT BEDTIME [facility] Last Admin: 11/25/16 20:55 Dose: 16 units Isosorbide Mononitrate (Imdur) 60 mg PO DAILY [facility] Last Admin: 11/26/16 09:01 Dose: 60 mg Melatonin (Melatonin) 9 mg PO BEDTIME [facility] Last Admin: 11/25/16 20:57 Dose: 9 mg Morphine Sulfate (Morphine) 2 mg IVPUSH Q2H PRN PRN Reason: Pain (severe 7-10) Last Admin: 11/25/16 03:28 Dose: 2 mg Ondansetron HCl (Zofran) 4 mg IV Q6H PRN PRN Reason: Nausea/Vomiting Ranexa 500mg Tab ( (Ptom)) 0 each PO BID [facility] Last Admin: 11/26/16 09:01 Dose: 1 each Polyethylene Glycol (Miralax) 17 gm PO BID PRN PRN Reason: Constipation Last Admin: 11/25/16 18:46 Dose: 17 gm Rivastigmine (Exelon) 1.5 mg PO BIDM [facility] Last Admin: 11/26/16 08:58 Dose: 1.5 mg Rosuvastatin Calcium (Crestor) 5 mg PO MoWeFr@2100 [facility] Last Admin: 11/24/16 21:06 Dose: 5 mg Sodium Chloride (Saline Flush) 10 ml FLUSH ASDIRECTED PRN PRN Reason: Keep Vein Open Tamsulosin HCl (Flomax) 0.4 mg PO DAILY [facility] Last Admin: 11/26/16 09:01 Dose: 0.4 mg Tiotropium [place] (Spiriva Handihaler) 18 mcg INH DAILYRT [facility] Last Admin: 11/26/16 07:36 Dose: 18 mcg Discontinued Medications Bisacodyl (Dulcolax) 10 mg RECTAL ONETIME ONE Stop: 11/25/16 17:55 Last Admin: 11/25/16 20:32 Dose: Not Given Bisacodyl (Dulcolax) 10 mg RECTAL ASDIRECTED [facility] Stop: 11/26/16 06:31 Last Admin: 11/26/16 06:11 Dose: 10 mg Bupivacaine HCl (Marcaine 0.5%) Confirm Administered Dose 50 ml .ROUTE .STK-MED ONE Stop: 11/24/16 06:59 Last Admin: 11/24/16 09:15 Dose: 30 ml Bupivacaine HCl (Marcaine 0.5%) Confirm Administered Dose 60 ml .ROUTE .STK-MED ONE Stop: 11/24/16 07:09 Cefazolin Sodium (Ancef) Confirm Administered Dose 2 gm .ROUTE .STK-MED ONE Stop: 11/24/16 08:21 Cyclosporine (Restasis) 1 each EYEBOTH BID [facility] Last Admin: 11/23/16 21:29 Dose: Not Given Dextrose/Water (Dextrose 50% In Water) 50 ml IVPUSH ONETIME ONE Stop: 11/24/16 06:48 Last Admin: 11/24/16 07:05 Dose: 50 ml Fentanyl (Sublimaze) Confirm Administered Dose 100 mcg .ROUTE .STK-MED ONE Stop: 11/24/16 07:14 Glycopyrrolate (Robinul) Confirm Administered Dose 1 mg .ROUTE .STK-MED ONE Stop: 11/24/16 09:32 Lactated Ringer's (Ringers, Lactated) 500 mls @ 150 mls/hr IV .BOLUS [facility] Last Infusion: 11/23/16 16:50 Dose: Infused Lactated Ringer's (Ringers, Lactated) 1,000 mls @ 100 mls/hr IV ASDIRECTED [facility] Last Admin: 11/24/16 07:03 Dose: 100 mls/hr Cefazolin Sodium 2 gm/ Sodium (Chloride) 50 mls @ 100 mls/hr IV Q8H [facility] Stop: 11/25/16 08:29 Last Admin: 11/25/16 09:22 Dose: 100 mls/hr Lidocaine HCl (Xylocaine-Mpf 1%) Confirm Administered Dose 2 mls @ as directed .ROUTE .STK-MED ONE Stop: 11/24/16 07:10 Sodium Chloride (Normal Saline) Confirm Administered Dose 20 mls @ as directed .ROUTE .STK-MED ONE Stop: 11/24/16 08:18 Sodium Chloride (Normal Saline) 500 mls @ 250 mls/hr IV .BOLUS ONE Stop: 11/24/16 23:01 Last Admin: 11/24/16 21:16 Dose: 250 mls/hr Insulin Aspart (Novolog) 0 unit SUBCUT QID [facility] PRN Reason: Protocol Last Admin: 11/25/16 17:02 Dose: 6 units Insulin Aspart (Novolog) Confirm Administered Dose 300 unit .ROUTE .STK-MED ONE Stop: 11/23/16 18:04 Last Admin: 11/23/16 18:10 Dose: Not Given Insulin Aspart (Novolog) 12 unit SUBCUT ONETIME ONE Stop: 11/25/16 08:39 Last Admin: 11/25/16 08:45 Dose: 12 units Insulin Detemir (Levemir) 10 unit SUBCUT 2100 [facility] Last Admin: 11/24/16 21:06 Dose: 10 units Midazolam HCl (Versed 1 Mg/Ml) Confirm Administered Dose 2 mg .ROUTE .STK-MED ONE Stop: 11/24/16 07:14 Povidone Iodine (Betadine 10% Soln) Confirm Administered Dose 1 ml .ROUTE .STK- MED ONE Stop: 11/24/16 08:21 Propofol (Diprivan 20 Ml) Confirm Administered Dose 200 mg .ROUTE .STK-MED ONE Stop: 11/24/16 07:14 Valproic Acid (Depakene) 250 mg PO BID [facility] Last Admin: 11/24/16 15:27 Dose: Not Given - Exam General: Alert, Oriented HEENT: Pupils Equal, Pupils Reactive, EOMI, Mucous Membr. Moist/[place]ellen Neck: Supple Extremities: Normal Inspection, Normal Capillary Refill, Limited Range of Motion Peripheral Pulses: 2+: Radial (L) Skin: Warm, Dry, Intact Wound/Incisions: Healing Well, Dressing Dry and Intact, No Drainage Neurological: No New Focal Deficit Psy/Mental Status: Alert, Normal Affect, Normal Mood - Problem List Review Problem List Initiated/Reviewed/Updated: Yes - Plan Plan:: A: POD #2 orif left proximal humerus fracture P: await placement [facility], [facility], sunday. pt/ot/pain control
[2016-11-26] MEDS ORDERED: Clopidogrel 75 MG Tab PO SCH (10:28)
[2016-11-26 11:12] VITALS: BP 113/60
--- NOTE | 2016-11-26 13:32 | PCM.DCSUM1 ---
Discharge Summary - Hospital Course Brief History: Mr. Bui is an 86-year-old gentleman who was admitted from the orthopedic clinic for surgical repair of a nonhealing left humerus fracture , for surgical repair. - Discharge Data Discharge Date: 11/26/16 Discharge Disposition: DC/Tfer to Acute Hospital 02 Condition: Serious - Discharge Diagnosis/Problem(s) (1) CAD (coronary artery disease) SNOMED Code(s): 77946604 ICD Code: I25.10 - ATHSCL HEART DISEASE OF [place] CORONARY ARTERY W/O ANG PCTRS Status: Acute Current Visit: Yes (2) Right arm weakness SNOMED Code(s): 949669451 ICD Code: R29.898 - OTH SYMPTOMS AND SIGNS INVOLVING THE MUSCULOSKELETAL SYSTEM Status: Acute Current Visit: Yes (3) Fracture, humerus closed SNOMED Code(s): 54366614 ICD Code: S42.309A - UNSP FRACTURE OF SHAFT OF HUMERUS, UNSP ARM, INIT Status: Acute Current Visit: No (4) Congestive heart failure (CHF) SNOMED Code(s): 45953994 ICD Code: I50.9 - HEART FAILURE, UNSPECIFIED Status: Acute Priority: Medium Current Visit: No Qualifiers: Congestive heart failure type: unspecified congestive heart failure type Congestive heart failure chronicity: acute Qualified Code(s): I50.9 - Heart failure, unspecified (5) Diabetes type 2, uncontrolled SNOMED Code(s): 71469741, 930139443 ICD Code: E11.65 - TYPE 2 DIABETES MELLITUS WITH HYPERGLYCEMIA Status: Chronic Priority: High Current Visit: No Qualifiers: Diabetes mellitus complication status: without complication Diabetes mellitus fpc insulin use: with petroleum terminal plant operator use Qualified Code(s): E11.65 - Type 2 diabetes mellitus with hyperglycemia; Z79.4 - petroleum terminal plant operator (current) use of insulin (6) Dementia SNOMED Code(s): 91198996 ICD Code: F03.90 - UNSPECIFIED DEMENTIA WITHOUT BEHAVIORAL DISTURBANCE Status: Chronic Priority: High Current Visit: No Qualifiers: Dementia type: Alzheimer's disease Alzheimer's disease onset: unspecified onset Dementia behavioral disturbance: without behavioral disturbance Qualified Code(s): G30.9 - Alzheimer's disease, unspecified; F02.80 - Dementia in other diseases classified elsewhere without behavioral disturbance - Patient Summary/Data Consults: Consultations 11/23/16 10:48 Consult to Physician [CONS] Routine Consulting Provider: Lenin Henry Call Completed to Consulting Physician: james 11/24/16 09:42 PT Evaluation and Treatment [CONS] Routine Please Evaluate and Treat. PT Reason for Consult: Strengthening Special Instructions: non weight bearing left upper extremity This query below is only for informational purposes and is not editable. Admission Diagnosis/Problem: Fracture of anatomical neck of humerus 11/24/16 09:43 Care Management Consult [Consult to Case Management] [CONS] Routine Comment: Physician Instructions: Quantity: OT Evaluation and Treatment [CONS] Routine Please Evaluate and Treat. OT Reason for Consult: Strengthening Special Instructions: non weight bearing left upper extremity This query below is only for informational purposes and is not editable. Admission Diagnosis/Problem: Fracture of anatomical neck of humerus Hospital Course: Mr. Bui is an 86-year-old gentleman who fell approximately 2-1/2 weeks ago on experienced a proximal right humerus fracture. He was managed conservatively and was seen for follow-up in the orthopedic clinic on November 24. At that time he was noted to have nonhealing of the fracture as well as a fragment of bone that was tenting the skin and felt to be at risk for perforating the skin. The only option at that time was felt to be to proceed with surgical repair of the fracture. He does have a known history of severe coronary artery disease, develops anginal symptoms after walking approximately 100 feet. He has been seen and followed by cardiology and they've told him that he is not a candidate for any further intervention concerning his coronary artery disease. He underwent surgical repair on November 24 and has done relatively well until this morning. He does have some underlying dementia, but has not had significant agitation during his hospitalization. Late this morning was noted to have significant weakness of his right upper extremity, there was no associated facial weakness her right lower extremity weakness. CT scan of the head without contrast shows no evidence of bleed or acute CVA. There has been mild to moderate improvement to the weakness since it was first noted. I reviewed this with Dr. Joiner department of neurology in [place] and he is recommended that the patient be transferred for further evaluation and management. He will be transferred via [facility]. - Patient Instructions Diet: Usual Diet as Tolerated Activity: Apply Ice Driving: Do Not Drive Showering/Bathing: May Shower Wound/Incision Care: Keep Operative Site/Wound Site Clean and Dry Notify Provider of: Fever, Increased Pain, Swelling and Redness, Drainage, Nausea and/or Vomiting Other/Special Instructions: Patient will be transferred to [facility] in [place] - Discharge Plan Home Medications: Home Meds Aspirin [Adult Low Dose Aspirin EC] 81 mg PO DAILY 08/29/13 [History] Carvedilol [Coreg] 3.125 mg PO BID 08/29/13 [History] Insulin Aspart [NovoLOG] 0 - 4 unit SQ ASDIRECTED 08/29/13 [History] Insulin Glarg,Human.Rec.Analog [Lantus] 10 unit SQ BEDTIME 08/29/13 [History] Isosorbide Mononitrate [Imdur] 60 mg PO DAILY 08/29/13 [History] Multivitamin [Multivitamins] 1 tab PO DAILY 08/29/13 [History] Tamsulosin [Flomax] 0.4 mg PO DAILY 08/29/13 [History] Tiotropium [Spiriva HandiHaler] 1 cap INH DAILY 08/29/13 [History] cycloSPORINE [Restasis] 1 each OP BID 08/29/13 [History] Nitroglycerin [Nitrostat] 0.4 mg SL ASDIRECTED 08/17/16 [History] Ranolazine [Ranexa] 500 mg PO BID 08/17/16 [History] Rosuvastatin Calcium 5 mg PO ASDIRECTED 08/17/16 [History] Clopidogrel [Plavix] 75 mg PO DAILY 08/26/16 [History] Gluc/Jude-Msm#1/Vit C/Maxi/Bor [Yxxltbf-Kkpyw-TDB Complex Cplt] 1 each PO DAILY 08/26/16 [History] Furosemide 20 mg PO DAILY PRN 11/23/16 [History] Rivastigmine [Exelon] 1.5 mg PO BIDM 11/23/16 [History] Patient Handouts: Humerus Fracture Treated With ORIF Referrals: Joby Frias DO [Physician] - - Patient Data Vitals - Most Recent: Last Vital Signs Temp 97.1 F 11/26/16 11:10 Pulse 58 L 11/26/16 11:10 Resp 16 11/26/16 11:10 BP 113/60 11/26/16 11:10 Pulse Ox 96 11/26/16 11:10 Weight - Most Recent: 172 lb 0.004 oz I&O - Last 24 hours: Intake & Output 11/25/16 11/26/16 11/26/16 22:59 06:59 14:59 Intake Total 826 1225 400 Output Total 675 525 Balance 151 700 400 Lab Results - Last 24 hrs: Laboratory Results - last 24 hr 11/26/16 11/26/16 Range/Units 04:20 04:20 WBC 9.3 (4.5-11.0) K/uL RBC 2.52 L (4.30-5.90) M/uL Hgb 8.1 L (12.0-15.0) g/dL Hct 24.8 L (40.0-54.0) % MCV 98 (80-98) fL MCH 32 H (27-31) pg MCHC 33 (32-36) % Plt Count 221 (150-400) K/uL Neut % (Auto) 70 H (36-66) % Lymph % (Auto) 15 L (24-44) % [place] % (Auto) 12 H (2-6) % Eos % (Auto) 3 (2-4) % Baso % (Auto) 0 (0-1) % Sodium 141 (140-148) mmol/L Potassium 3.9 (3.6-5.2) mmol/L Chloride 109 H (100-108) mmol/L Carbon Dioxide 28 (21-32) mmol/L Anion Gap 7.9 (5.0-14.0) mmol/L BUN 27 H (7-18) mg/dL Creatinine 1.1 (0.8-1.3) mg/dL Est Cr Clr Drug Dosing 50.82 mL/min Estimated GFR (MDRD) > 60 (>60) Glucose 143 H (74-106) mg/dL Calcium 7.9 L (8.5-10.1) mg/dL Med Orders - Current: Current Medications Aspirin (Halfprin) 81 mg PO DAILY [facility] Last Admin: 11/26/16 09:01 Dose: 81 mg Carvedilol (Coreg) 3.125 mg PO BID [facility] Last Admin: 11/26/16 09:00 Dose: 3.125 mg Clopidogrel Bisulfate (Plavix) 75 mg PO DAILY [facility] Last Admin: 11/26/16 11:42 Dose: 75 mg Cyclosporine (Restasis) 1 each EYEBOTH BID [facility] Last Admin: 11/26/16 09:01 Dose: 1 drop Dextrose (Glutose 15) 15 gm PO ONETIME PRN PRN Reason: Hypoglycemia Dextrose/Water (Dextrose 50% In Water) 50 ml IV ONETIME PRN PRN Reason: Hypoglycemia Docusate Sodium (Colace) 100 mg PO BID PRN PRN Reason: Constipation Ferrous Sulfate (Ferrous Sulfate) 325 mg PO BIDMEALS [facility] Last Admin: 11/26/16 08:58 Dose: 325 mg Furosemide (Lasix) 20 mg PO DAILY PRN PRN Reason: Edema Last Admin: 11/26/16 06:03 Dose: 20 mg Hydroxyzine HCl (Vistaril) 100 mg IM Q6H PRN PRN Reason: Nausea/Vomiting Last Admin: 11/24/16 01:27 Dose: 100 mg Lactated Ringer's (Ringers, Lactated) 1,000 mls @ 125 mls/hr IV ASDIRECTED [facility] Last Admin: 11/26/16 06:14 Dose: 125 mls/hr Insulin Aspart (Novolog) 0 unit SUBCUT 0730,1130,1630,2100 [facility] PRN Reason: Protocol Last Admin: 11/26/16 11:37 Dose: 6 units Insulin Detemir (Levemir) 16 unit SUBCUT BEDTIME [facility] Last Admin: 11/25/16 20:55 Dose: 16 units Isosorbide Mononitrate (Imdur) 60 mg PO DAILY [facility] Last Admin: 11/26/16 09:01 Dose: 60 mg Melatonin (Melatonin) 9 mg PO BEDTIME [facility] Last Admin: 11/25/16 20:57 Dose: 9 mg Morphine Sulfate (Morphine) 2 mg IVPUSH Q2H PRN PRN Reason: Pain (severe 7-10) Last Admin: 11/25/16 03:28 Dose: 2 mg Ondansetron HCl (Zofran) 4 mg IV Q6H PRN PRN Reason: Nausea/Vomiting Ranexa 500mg Tab ( (Ptom)) 0 each PO BID [facility] Last Admin: 11/26/16 09:01 Dose: 1 each Polyethylene Glycol (Miralax) 17 gm PO BID PRN PRN Reason: Constipation Last Admin: 11/25/16 18:46 Dose: 17 gm Rivastigmine (Exelon) 1.5 mg PO BIDM [facility] Last Admin: 11/26/16 08:58 Dose: 1.5 mg Rosuvastatin Calcium (Crestor) 5 mg PO MoWeFr@2100 [facility] Last Admin: 11/24/16 21:06 Dose: 5 mg Sodium Chloride (Saline Flush) 10 ml FLUSH ASDIRECTED PRN PRN Reason: Keep Vein Open Tamsulosin HCl (Flomax) 0.4 mg PO DAILY [facility] Last Admin: 11/26/16 09:01 Dose: 0.4 mg Tiotropium [place] (Spiriva Handihaler) 18 mcg INH DAILYRT [facility] Last Admin: 11/26/16 07:36 Dose: 18 mcg Discontinued Medications Bisacodyl (Dulcolax) 10 mg RECTAL ONETIME ONE Stop: 11/25/16 17:55 Last Admin: 11/25/16 20:32 Dose: Not Given Bisacodyl (Dulcolax) 10 mg RECTAL ASDIRECTED [facility] Stop: 11/26/16 06:31 Last Admin: 11/26/16 06:11 Dose: 10 mg Bupivacaine HCl (Marcaine 0.5%) Confirm Administered Dose 50 ml .ROUTE .STK-MED ONE Stop: 11/24/16 06:59 Last Admin: 11/24/16 09:15 Dose: 30 ml Bupivacaine HCl (Marcaine 0.5%) Confirm Administered Dose 60 ml .ROUTE .STK-MED ONE Stop: 11/24/16 07:09 Cefazolin Sodium (Ancef) Confirm Administered Dose 2 gm .ROUTE .STK-MED ONE Stop: 11/24/16 08:21 Clopidogrel Bisulfate (Plavix) 75 mg PO DAILY [facility] Cyclosporine (Restasis) 1 each EYEBOTH BID [facility] Last Admin: 11/23/16 21:29 Dose: Not Given Dextrose/Water (Dextrose 50% In Water) 50 ml IVPUSH ONETIME ONE Stop: 11/24/16 06:48 Last Admin: 11/24/16 07:05 Dose: 50 ml Divalproex Sodium (Divalproex Sodium) 250 mg PO BIDMEALS [facility] Last Admin: 11/26/16 08:57 Dose: 250 mg Fentanyl (Sublimaze) Confirm Administered Dose 100 mcg .ROUTE .STK-MED ONE Stop: 11/24/16 07:14 Glycopyrrolate (Robinul) Confirm Administered Dose 1 mg .ROUTE .STK-MED ONE Stop: 11/24/16 09:32 Lactated Ringer's (Ringers, Lactated) 500 mls @ 150 mls/hr IV .BOLUS [facility] Last Infusion: 11/23/16 16:50 Dose: Infused Lactated Ringer's (Ringers, Lactated) 1,000 mls @ 100 mls/hr IV ASDIRECTED [facility] Last Admin: 11/24/16 07:03 Dose: 100 mls/hr Cefazolin Sodium 2 gm/ Sodium (Chloride) 50 mls @ 100 mls/hr IV Q8H [facility] Stop: 11/25/16 08:29 Last Admin: 11/25/16 09:22 Dose: 100 mls/hr Lidocaine HCl (Xylocaine-Mpf 1%) Confirm Administered Dose 2 mls @ as directed .ROUTE .STK-MED ONE Stop: 11/24/16 07:10 Sodium Chloride (Normal Saline) Confirm Administered Dose 20 mls @ as directed .ROUTE .STK-MED ONE Stop: 11/24/16 08:18 Sodium Chloride (Normal Saline) 500 mls @ 250 mls/hr IV .BOLUS ONE Stop: 11/24/16 23:01 Last Admin: 11/24/16 21:16 Dose: 250 mls/hr Insulin Aspart (Novolog) 0 unit SUBCUT QID [facility] PRN Reason: Protocol Last Admin: 11/25/16 17:02 Dose: 6 units Insulin Aspart (Novolog) Confirm Administered Dose 300 unit .ROUTE .STK-MED ONE Stop: 11/23/16 18:04 Last Admin: 11/23/16 18:10 Dose: Not Given Insulin Aspart (Novolog) 12 unit SUBCUT ONETIME ONE Stop: 11/25/16 08:39 Last Admin: 11/25/16 08:45 Dose: 12 units Insulin Detemir (Levemir) 10 unit SUBCUT 2100 [facility] Last Admin: 11/24/16 21:06 Dose: 10 units Midazolam HCl (Versed 1 Mg/Ml) Confirm Administered Dose 2 mg .ROUTE .STK-MED ONE Stop: 11/24/16 07:14 Povidone Iodine (Betadine 10% Soln) Confirm Administered Dose 1 ml .ROUTE .STK- MED ONE Stop: 11/24/16 08:21 Propofol (Diprivan 20 Ml) Confirm Administered Dose 200 mg .ROUTE .STK-MED ONE Stop: 11/24/16 07:14 Valproic Acid (Depakene) 250 mg PO BID [facility] Last Admin: 11/24/16 15:27 Dose: Not Given *Q Meaningful Use (DIS) - VTE *Q VTE Criteria *Q: - Stroke *Q Stroke Criteria *Q: - AMI *Q AMI Criteria *Q:
[2016-11-27] MEDS ORDERED: Clopidogrel 75 MG Tab PO SCH (09:00)
== END 2016-11-26 14:35 | DRG 493 ==
LOC: JP.MS 10:44
PROVIDERS: ADMIT Hospitalist; ATTEND Orthopaedic Surgery
PROC: 0PSD04Z Reposition Left Humeral Head with Internal Fixation Device, Open Approach (ICD-10-PCS; principal; 2016-11-24)
DX: S42.202A Unspecified fracture of upper end of left humerus, initial encounter for closed fracture (principal); I13.0 Hypertensive heart and chronic kidney disease with heart failure and stage 1 through stage 4 chronic kidney disease, or unspecified chronic kidney disease; W19.XXXA Unspecified fall, initial encounter; Y92.9 Unspecified place or not applicable; R53.1 Weakness; E11.22 Type 2 diabetes mellitus with diabetic chronic kidney disease; E11.65 Type 2 diabetes mellitus with hyperglycemia; N18.3 Chronic kidney disease, stage 3 (moderate); I50.9 Heart failure, unspecified; Z87.891 Personal history of nicotine dependence; Z79.4 Long term (current) use of insulin; E11.40 Type 2 diabetes mellitus with diabetic neuropathy, unspecified; G30.9 Alzheimer's disease, unspecified; F02.80 Dementia in other diseases classified elsewhere, unspecified severity, without behavioral disturbance, psychotic disturbance, mood disturbance, and anxiety; E78.00 Pure hypercholesterolemia, unspecified; H91.90 Unspecified hearing loss, unspecified ear; H54.7 Unspecified visual loss; Z95.1 Presence of aortocoronary bypass graft; Z79.82 Long term (current) use of aspirin; N40.0 Benign prostatic hyperplasia without lower urinary tract symptoms; J44.9 Chronic obstructive pulmonary disease, unspecified; I25.119 Atherosclerotic heart disease of native coronary artery with unspecified angina pectoris
CPT/HCPCS: 36415; 51798; 70450; 76001; 80048; 82962; 85025; 93005; 94640-76; 94664; A9270-GY; C1713; C1776; J0690; J2250; J2270; J2704; J3010; J3410; J7040; J7050; J7120

== ENCOUNTER 2017-04-19 06:30 | Emergency (ER) | payer MEDICARE ==
[2017-04-19 06:44] VITALS: BP 136/88
[2017-04-19] MEDS ORDERED: Lidocaine 1% with EPINEPHrine 1:100,000 50 ML MDV ONE (07:09)
[2017-04-19] MEDS ORDERED: Lidocaine 1% with EPINEPHrine 1:100,000 50 ML MDV INFILT ONE (07:11)
[2017-04-19] MEDS ORDERED: Bacitracin Oint 1 GM U/D Packet TOP ONE (07:36)
--- NOTE | 2017-04-19 07:42 | EDM.PDOC ---
ED HPI GENERAL MEDICAL PROBLEM - General Chief Complaint: Laceration Stated Complaint: FELL OFF BED Time Seen by Provider: 04/19/17 07:00 Source of Information: Reports: Patient History Limitations: Reports: No Limitations - History of Present Illness INITIAL COMMENTS - FREE TEXT/NARRATIVE: 86-year-old male fell out of bed this morning striking his left elbow on the bed frame sustaining a laceration. His pressure dressed it because it was bleeding pretty profusely, he is on Plavix and aspirin. He has no bony tenderness or pain with movement of the arm but he's had a significant hematoma formed on the underside of the elbow. Onset: Today Duration: Hour(s): (Within the past hour) Location: Reports: Upper Extremity, Left Quality: Reports: Ache Severity: Moderate Associated Symptoms: Reports: No Other Symptoms Left Elbow Pain Score (Numeric/FACES): 3 - Related Data Allergies Allergy/AdvReac Type Severity Reaction Status Date / Time No Known Allergies Allergy Verified 04/19/17 06:44 Home Meds: Home Meds Aspirin [Adult Low Dose Aspirin EC] 81 mg PO DAILY 08/29/13 [History] Carvedilol [Coreg] 3.125 mg PO BID 08/29/13 [History] Insulin Aspart [NovoLOG] 0 - 4 unit SQ ASDIRECTED 08/29/13 [History] Insulin Glarg,Human.Rec.Analog [Lantus] 10 unit SQ BEDTIME 08/29/13 [History] Isosorbide Mononitrate [Imdur] 30 mg PO DAILY 08/29/13 [History] Multivitamin [Multivitamins] 1 tab PO DAILY 08/29/13 [History] Tamsulosin [Flomax] 0.4 mg PO DAILY 08/29/13 [History] Tiotropium [Spiriva HandiHaler] 1 cap INH DAILY 08/29/13 [History] cycloSPORINE [Restasis] 1 each OP BID 08/29/13 [History] Nitroglycerin [Nitrostat] 0.4 mg SL ASDIRECTED 08/17/16 [History] Ranolazine [Ranexa] 500 mg PO BID 08/17/16 [History] Rosuvastatin Calcium 5 mg PO ASDIRECTED 08/17/16 [History] Clopidogrel [Plavix] 75 mg PO DAILY 08/26/16 [History] Gluc/Jude-Msm#1/Vit C/Maxi/Bor [Mtfkphk-Egzyd-RMV Complex Cplt] 1 each PO DAILY 08/26/16 [History] Furosemide 20 mg PO DAILY PRN 11/23/16 [History] Rivastigmine [Exelon] 1.5 mg PO BIDM 11/23/16 [History] Past Medical History HEENT History: Reports: Hard of Hearing, Impaired Vision, Other (See Below) Other HEENT History: Wears hearing aid Cardiovascular History: Reports: Bypass, CAD, High Cholesterol, Hypertension, [place] Respiratory History: Reports: COPD Genitourinary History: Reports: BPH Other Genitourinary History: Takes Flomax Musculoskeletal History: Reports: Other (See Below) Other Musculoskeletal History: Fx L humerous Neurological History: Reports: Neuropathy, Diabetic, Vertigo Psychiatric History: Reports: Alzheimers Disease, Dementia Endocrine/Metabolic History: Reports: Diabetes, Type II Hematologic History: Reports: Anticoagulation Therapy Dermatologic History: Reports: Other (See Below) Other Dermatologic History: facial lesion reoccurring - Infectious Disease History Infectious Disease History: Reports: Chicken Pox - Past Surgical History HEENT Surgical History: Reports: Adenoidectomy, Laser Surgery, Tonsillectomy Cardiovascular Surgical History: Reports: Carotid Endarterectomy, Coronary Artery Bypass Respiratory Surgical History: Reports: Thoracotomy Male Surgical History: Reports: None Endocrine Surgical History: Reports: None Musculoskeletal Surgical History: Reports: Shoulder Surgery Dermatological Surgical History: Reports: None Social & Family History - Tobacco Use Smoking Status *Q: Former Smoker Years of Tobacco use: 9 Packs/Tins Daily: 1 Used Tobacco, but Quit: Yes Month Tobacco Last Used: july Second Hand Smoke Exposure: No - Caffeine Use Caffeine Use: Reports: Coffee Caffeine Use Comment: 2-3 cups daily - Alcohol Use Days Per Week of Alcohol Use: 7 Number of Drinks Per Day: 1 Total Drinks Per Week: 7 - Recreational Drug Use Recreational Drug Use: No - Living Situation & Occupation Living situation: Reports: , with Family Occupation: Retired (lives with Marilee of 64 years, Odell in [place], Summer at [employer], have 2 adult children one lives in [facility] , one live in [place].) ED ROS GENERAL - Review of Systems Review Of Systems: See Below Constitutional: Denies: Fever Respiratory: Denies: Shortness of Breath GI/Abdominal: Denies: Nausea, Vomiting Musculoskeletal: Denies: Neck Pain Neurological: Denies: Headache ED EXAM, SKIN/RASH Exam: See Below Exam Limited By: No Limitations General Appearance: Alert, No Apparent Distress Respiratory/Chest: No Respiratory Distress, Other (He does have a small abrasion on the upper left anterior chest) GI/Abdominal: Non-Tender Extremities: Other (Exam is otherwise limited to the left arm. The patient has a somewhat macerated irregular 7 cm laceration to the lateral aspect of the elbow. There is an underlying hematoma.) Course - Vital Signs Last Recorded V/S: Last Vital Signs Temp 96.3 F 04/19/17 06:33 Pulse 59 L 04/19/17 06:33 Resp 14 04/19/17 06:33 BP 136/88 04/19/17 06:33 Pulse Ox 98 04/19/17 06:33 - Orders/Labs/Meds Meds: Medications Discontinued Medications Generic Name Dose Route Start Last Admin Trade Name Freq PRN Reason Stop Dose Admin Bacitracin 1 dose 04/19/17 07:36 04/19/17 07:40 Bacitracin Oint 1 Gm TOP 04/19/17 07:37 1 dose ONETIME ONE Administration Lidocaine/Epinephrine Confirm 04/19/17 07:09 04/19/17 08:07 Xylocaine 1% With Epinephrine 1:100,000 Administered 04/19/17 07:10 Not Given Dose 50 ml .ROUTE .STK-MED ONE Lidocaine/Epinephrine 30 ml 04/19/17 07:11 04/19/17 08:04 Xylocaine 1% With Epinephrine 1:100,000 INFILT 04/19/17 07:12 Not Given ONETIME ONE Lidocaine/Epinephrine 50 ml 04/19/17 08:01 04/19/17 08:04 Xylocaine 1% With Epinephrine 1:100,000 INJECT 04/19/17 08:02 50 ml ONETIME ONE Administration - Re-Assessments/Exams Free Text/Narrative Re-Assessment/Exam: 04/19/17 07:47 The area was infiltrated with 1% lidocaine with epinephrine. Part of the hematoma was expelled with pressure, the edges of the laceration were undermined slightly and the edges straightened with trimming of some epidermis. 6 4-0 Ethilon sutures were placed widely across a laceration and the edges approximated well but the hematoma was reforming. Topical bacitracin and a pressure dressing was applied, I'm going to have Dr. Fontanez recheck the wound tomorrow morning. Departure - Departure Time of Disposition: 08:18 Disposition: Home, Self-Care 01 Condition: Good Clinical Impression: Elbow laceration Qualifiers: Encounter type: initial encounter Laterality: left Qualified Code(s): S51.012A - Laceration without foreign body of left elbow, initial encounter Traumatic hematoma of elbow Qualifiers: Encounter type: initial encounter Laterality: left Qualified Code(s): S50.02XA - Contusion of left elbow, initial encounter - Discharge Information Instructions: Laceration Care, Adult, [id number] Referrals: Jh Carrion MD [Primary Care Provider] - Forms: ED Department Discharge Care Plan Goals: Keep dressing on the elbow if tolerated, and recheck with Dr. Fontanez at the clinic tomorrow as scheduled. Cold compresses or ice over the dressings will help the swelling.
[2017-04-19] MEDS ORDERED: Lidocaine 1% with EPINEPHrine 1:100,000 50 ML MDV INJECT ONE (08:01)
== END 2017-04-19 08:18 | disposition home or self-care (01) ==
LOC: JP.ED 06:30
DX: S51.012A Laceration without foreign body of left elbow, initial encounter (principal); J44.9 Chronic obstructive pulmonary disease, unspecified; I10 Essential (primary) hypertension; E78.00 Pure hypercholesterolemia, unspecified; E11.9 Type 2 diabetes mellitus without complications; Z79.4 Long term (current) use of insulin; Z87.891 Personal history of nicotine dependence; Z79.899 Other long term (current) drug therapy; Z79.82 Long term (current) use of aspirin; W22.8XXA Striking against or struck by other objects, initial encounter; W06.XXXA Fall from bed, initial encounter
CPT/HCPCS: 12002; 99283-25

== ENCOUNTER 2017-05-08 09:32 | Day surgery (SDC) | payer MEDICARE ==
[~2017-05-08 09:32] MED LIST: Bupivacaine 0.5% 50 ML MDV ONE; Lidocaine 1% with EPINEPHrine 1:100,000 50 ML MDV ONE
[2017-05-08] MEDS ORDERED: Sodium Chloride 0.9% 1,000 ML IV SCH (10:00)
[2017-05-08] MEDS ORDERED: ceFAZolin 2 GM in Premix Bag 1 BAG IV ONE ×2 (10:30)
[2017-05-08] MEDS ORDERED: fentaNYL 100 MCG/2 ML SDV ONE (10:56)
[2017-05-08] MEDS ORDERED: Propofol 200 MG/20 ML SDV ONE (10:56)
[2017-05-08 13:09] VITALS: BP 119/74
--- NOTE | 2017-05-10 11:20 | OR ---
DATE OF PROCEDURE: 05/08/2017 PROCEDURE: Hematoma evacuation, left arm. FINDINGS: Approximately 10 mL of hematoma. COMPLICATIONS: None. METER CHANGES RECORDS CLERK: None. ANESTHESIA: MAC/local. INDICATIONS: This is an 86-year-old male who had a traumatic injury with an ultrasound showing a hematoma, approximately 4.5 cm x 3 cm. DESCRIPTION OF PROCEDURE: The arm was prepped and draped. 1% lidocaine was used to anesthetize the skin and a michela was created. A Peyton was then introduced and used to break up the hematoma, which was able to be expressed through the incision. This was then thoroughly irrigated with multiple irrigations and a quarter-inch iodoform gauze was placed within the wound. Dressings were applied. The patient tolerated the procedure well. Tone Fontanez MD /[id number]
== END 2017-05-08 12:40 | disposition home or self-care (01) ==
LOC: JP.SDS 09:32
PROVIDERS: ATTEND Surgery
DX: S40.022A Contusion of left upper arm, initial encounter (principal); I25.10 Atherosclerotic heart disease of native coronary artery without angina pectoris; I10 Essential (primary) hypertension; J44.9 Chronic obstructive pulmonary disease, unspecified; I25.2 Old myocardial infarction; Z95.1 Presence of aortocoronary bypass graft; I50.9 Heart failure, unspecified; G30.9 Alzheimer's disease, unspecified; F02.80 Dementia in other diseases classified elsewhere, unspecified severity, without behavioral disturbance, psychotic disturbance, mood disturbance, and anxiety; E11.9 Type 2 diabetes mellitus without complications; Z87.891 Personal history of nicotine dependence; X58.XXXA Exposure to other specified factors, initial encounter
CPT/HCPCS: 36415; 80048; 85027; J0690; J2704; J3010; J7040

== ENCOUNTER 2019-03-27 03:01 | Inpatient (IN) | payer MEDICARE ==
--- NOTE | 2019-03-27 03:28 | EDM.PDOC ---
<Jh Albright - Last Filed: 03/27/19 06:44> ED HPI GENERAL MEDICAL PROBLEM - General Chief Complaint: General Stated Complaint: FALL VIA NORTH Time Seen by Provider: 03/27/19 03:10 Source of Information: Reports: Patient, EMS, Family History Limitations: Reports: Physical Impairment (Patient is confused and sedated with pain medication per EMS) - History of Present Illness INITIAL COMMENTS - FREE TEXT/NARRATIVE: 88-year-old male fell tonight while going to the bathroom striking his head and upper chest on the door frame. An ambulance was called because his could not get him up. His left arm was bent at an unusual angle underneath him, some pain medication was given by EMS prior to placing him on the stretcher and bringing him in. He has ecchymosis around the right eye and is confused and sedated from the pain medication. He is having difficulty focusing where his pain is. Onset: Sudden Duration: Hour(s): (Within the last hour) Location: Reports: Head, Face, Chest Associated Symptoms: Reports: Confusion. Denies: Chest Pain, Shortness of Breath - Related Data Allergies Allergy/AdvReac Type Severity Reaction Status Date / Time atorvastatin [From Lipitor] AdvReac Muscle Verified 12/11/18 09:37 Aches Home Meds: Home Meds Aspirin [Adult Low Dose Aspirin EC] 81 mg PO DAILY 08/29/13 [History] Insulin Aspart [NovoLOG] 0 - 4 unit SQ ASDIRECTED 08/29/13 [History] Insulin Glarg,Human.Rec.Analog [Lantus] 15 unit SQ BEDTIME 08/29/13 [History] Isosorbide Mononitrate [Imdur] 30 mg PO DAILY 08/29/13 [History] Multivitamin [Multivitamins] 1 tab PO DAILY 08/29/13 [History] Tamsulosin [Flomax] 0.4 mg PO BEDTIME 08/29/13 [History] Tiotropium [Spiriva HandiHaler] 1 cap INH DAILY 08/29/13 [History] carvediloL [Coreg] 3.125 mg PO BID 08/29/13 [History] cycloSPORINE [Restasis] 1 each OP BID 08/29/13 [History] Nitroglycerin [Nitrostat] 0.4 mg SL ASDIRECTED 08/17/16 [History] Ranolazine [Ranexa] 500 mg PO BID 08/17/16 [History] Rosuvastatin Calcium 5 mg PO ASDIRECTED 08/17/16 [History] Clopidogrel [Plavix] 75 mg PO DAILY 08/26/16 [History] Glucosam/Chond-Msm1/C/Maxi/Bor [Ucuqatx-Kosze-FAA Complex Cplt] 1 each PO DAILY 08/26/16 [History] Furosemide 20 mg PO DAILY PRN 11/23/16 [History] Rivastigmine [Exelon] 1.5 mg PO BIDM 11/23/16 [History] Memantine HCl [Namenda] 10 mg PO BID 05/07/17 [History] Past Medical History HEENT History: Reports: Hard of Hearing, Impaired Vision, Other (See Below) Other HEENT History: Wears hearing aid Cardiovascular History: Reports: Bypass, CAD, High Cholesterol, Hypertension, [place] Respiratory History: Reports: COPD Genitourinary History: Reports: BPH, Prostate Disorder Other Genitourinary History: Takes Flomax Musculoskeletal History: Reports: Other (See Below) Other Musculoskeletal History: Fx L humerous Neurological History: Reports: Neuropathy, Diabetic, Vertigo Psychiatric History: Reports: Alzheimers Disease, Dementia Endocrine/Metabolic History: Reports: Diabetes, Type II, IDDM Hematologic History: Reports: Anticoagulation Therapy Immunologic History: Reports: None Oncologic (Cancer) History: Reports: None Dermatologic History: Reports: Other (See Below) Other Dermatologic History: facial lesion reoccurring - Infectious Disease History Infectious Disease History: Reports: Chicken Pox, Measles, Mumps - Past Surgical History HEENT Surgical History: Reports: Adenoidectomy, Laser Surgery, Tonsillectomy Cardiovascular Surgical History: Reports: Carotid Endarterectomy, Coronary Artery Bypass Respiratory Surgical History: Reports: Thoracotomy GI Surgical History: Reports: Colonoscopy Musculoskeletal Surgical History: Reports: Shoulder Surgery Oncologic Surgical History: Reports: None Dermatological Surgical History: Reports: None Social & Family History - Family History Family Medical History: Noncontributory - Tobacco Use Smoking Status *Q: Unknown Ever Smoked - Caffeine Use Caffeine Use: Reports: Coffee Caffeine Use Comment: 2-3 cups daily - Living Situation & Occupation Living situation: Reports: , with Family Occupation: Retired (lives with Marilee of 64 years, Odell in [place], Summer at [employer], have 2 adult children one lives in [facility] , one live in [place].) ED ROS GENERAL - Review of Systems Review Of Systems: Unable To Obtain (Patient is confused and having difficulty answering questions appropriately) ED EXAM, GENERAL - Physical Exam Exam: See Below Exam Limited By: Altered Mental Status General Appearance: Alert, No Apparent Distress Eye Exam: Bilateral Eye: Other (Patient has significant periorbital ecchymosis of the right side, EOMs appear intact) Head: Other (Ecchymosis around the right eye, no other scalp injury) Neck: Non-Tender (No specific pain with movement) Respiratory/Chest: No Respiratory Distress (Patient is in no respiratory distress but O2 saturations were in the 70s on arrival after the Dilaudid, 94% with 2 L O2) GI/Abdominal: Soft, Non-Tender Extremities: Other (Complains of discomfort with movement of the arms but there is no deformity or focal bony tenderness) Skin Exam: Warm, Dry, Other (Bruising around the right eye, some superficial bruises on the left elbow) Course - Vital Signs Last Recorded V/S: Last Vital Signs Temp 37 C 03/27/19 03:16 Pulse 57 L 03/27/19 08:33 Resp 18 03/27/19 08:33 BP 166/80 H 03/27/19 08:33 Pulse Ox 98 03/27/19 08:33 - Orders/Labs/Meds Meds: Medications Discontinued Medications Generic Name Dose Route Start Last Admin Trade Name Freq PRN Reason Stop Dose Admin Hydromorphone HCl 0.5 mg 03/27/19 08:23 03/27/19 08:31 Dilaudid IVPUSH 03/27/19 08:24 0.5 mg ONETIME ONE Administration - Re-Assessments/Exams Free Text/Narrative Re-Assessment/Exam: 03/27/19 03:[address] Head [address] cervical spine CT without contrast will be obtained as well as a 1 view chest x-ray. 03/27/19 06:44 Head C-spine CT scan showed no acute trauma. Patient was still very confused and sedated, weak from the medications and concussion and was sleeping at shift change, will be reassessed when he awakes. Departure - Departure Disposition: Admitted As Inpatient 67 Clinical Impression: Fall, Confusion, Muscle pain - Discharge Information Referrals: PCP,None [Primary Care Provider] - Forms: ED Department Discharge Care Plan Goals: admit to Dr dsouza. Sepsis Event Note - Evaluation Sepsis Screening Result: No Definite Risk - Focused Exam Vital Signs: Vital Signs Temp Pulse Resp BP Pulse Ox 03/27/19 08:33 57 L 18 166/80 H 98 03/27/19 04:10 5 L 16 191/84 H 92 L 03/27/19 03:16 37 C 56 L 16 186/75 H 94 L Date Exam was Performed: 03/27/19 Time Exam was Performed: 06:44 <Yolie Ruiz - Last Filed: 03/27/19 09:54> Course - Re-Assessments/Exams Free Text/Narrative Re-Assessment/Exam: pt was gotten up and he was not stable on his feet. He will be admitted . The is very willing to take him home when he ios back to baseline. 03/27/19 09:52 Departure - Departure Time of Disposition: 09:53 Condition: Fair Sepsis Event Note - Focused Exam Date Exam was Performed: 03/27/19 Time Exam was Performed: 09:52
--- NOTE | 2019-03-27 04:39 | CRLCR ---
HISTORY: Status post fall with anterior chest and shoulder pain. COMPARISON: 08/26/2016 FINDINGS: A portable erect AP view of the chest was obtained at 0337 hours. The previously seen moderate patchy right midlung infiltrate and mild patchy left upper lung infiltrate have resolved. There is new mild patchy density in the lung bases, left greater than right which is probably atelectasis. The heart remains normal in size. Again seen are sternal wires from median sternotomy. The mediastinum is normal in appearance. There is a lateral metallic plate with multiple anchoring screws from ORIF of a fracture of the surgical neck of the left humerus. Multiple suture anchors are seen in the humeral head. These appear to be new compared to the previous study. IMPRESSION: New mild patchy left greater than right basilar infiltrates, probably atelectasis. Resolution of previously seen moderate right mid lung and mild left upper lung infiltrates. Dictated by Jamal Amador MD @ Mar 27 2019 4:30AM Signed by Dr. Jamal Amador @ Mar 27 2019 4:37AM
--- NOTE | 2019-03-27 04:48 | CRLCT ---
INDICATION: Status post fall. COMPARISON: COMPARISON DATE TECHNIQUE: CT examination of the head was performed with 3 mm thick axial sections without intravenous contrast. Images were obtained from the vertex of the skull through the skull base, and I examined the images with the brain and bone windows. Please note that all CT scans at this facility use dose modulation, iterative reconstruction, and/or weight-based dosing when appropriate to reduce radiation dose to as low as reasonably achievable. FINDINGS: There is new moderate swelling in the right supraorbital scalp extending inferiorly into the right upper eyelid. There is mild swelling extending inferiorly and laterally over the right anterior zygomatic region with no sign of any associated fracture of the right lateral orbital wall or the right zygoma. There is no sign of fracture of the superior orbital rim or right frontal sinus. There is no sign of injury to the underlying brain. 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 The brain is otherwise normal in appearance for the patient`s age on today`s study, with no sign of mass lesion, mass effect, hemorrhage, or edema. There is moderate dilatation of the ventricles and sulci representing moderate, age-appropriate atrophy. There are changes of bilateral cataract surgery. There are senile calcifications along the lateral aspect of both globes. There is no sign of injury to the intraorbital soft tissue structures. The visualized paranasal sinuses and mastoids are clear. The osseous structures are normal in their appearance with no sign of abnormality in the skull base or calvarium. IMPRESSION: Moderate right supraorbital hematoma extending into the right upper eyelid and into the anterior aspect of the right zygomatic region, with no sign of underlying fracture or injury to the underlying brain. Stable moderate, age-appropriate atrophy. 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 No sign of closed head injury. Please note that all CT scans at this facility use dose modulation, iterative reconstruction, and/or weight-based dosing when appropriate to reduce radiation dose to as low as reasonably achievable. Dictated by Jamal Amador MD @ Mar 27 2019 4:41AM Signed by Dr. Jamal Amador @ Mar 27 2019 4:46AM
--- NOTE | 2019-03-27 04:51 | CRLCT ---
INDICATION: Pain after fall COMPARISON: None available TECHNIQUE: CT examination of the cervical spine is performed without contrast using spiral technique. 2 mm thick axial, sagittal and coronal reconstructions were made. Please note that all CT scans at this facility use dose modulation, iterative reconstruction, and/or weight-based dosing when appropriate to reduce radiation dose to as low as reasonably achievable. FINDINGS: : There is minimal anterior subluxation of C7 on T1 which is probably degenerative, associated with mild bilateral facet arthropathy and prominent C7-T1 disc degenerative disease. The rest of the vertebral bodies are in anatomic alignment. There is prominent C3-4, C5-6, and C6-7 disc degenerative disease. There is mild diffuse disc bulging with posterior osteophytic ridging at these levels. There is moderate bilateral C3-4 foraminal stenosis from uncovertebral joint hypertrophy. There is mild bilateral C5-6 and C6-7 foraminal stenosis from uncovertebral joint hypertrophy. There is mild C2-3 and C4-5 disc degenerative disease. There is prominence right and mild left foraminal stenosis at C4-5 There is no sign of prevertebral soft tissue swelling. The airway structures are normal in appearance. The visualized skull base is normal in appearance. Brain detail is extremely limited by the use of bone technique, but no gross abnormality is seen. The apices of the lungs are clear. IMPRESSION: No sign of acute injury to the cervical spine. Minimal anterior subluxation of C7 on T1, probably degenerative. Prominent C3-4, C5-6, and C6-7 disc degenerative disease. Mild disc degenerative disease at C2-3 and C4-5. Please note that all CT scans at this facility use dose modulation, iterative reconstruction, and/or weight-based dosing when appropriate to reduce radiation dose to as low as reasonably achievable. Dictated by Jamal Amador MD @ Mar 27 2019 4:46AM Signed by Dr. Jamal Amador @ Mar 27 2019 4:50AM
[2019-03-27] MEDS ORDERED: HYDROmorphone 0.5 MG/0.5 ML Syringe IVPUSH ONE (08:23)
--- NOTE | 2019-03-27 11:24 | PCM.HP.2 ---
H&P History of Present Illness - General Date of Service: 03/27/19 Admit Problem/Dx: Admission Diagnosis/Problem Admission Diagnosis/Problem Pain Source of Information: Family, Provider, RN Notes Reviewed History Limitations: Reports: Altered Mental Status (dementia) - History of Present Illness Initial Comments - Free Text/Narative: Mr. Bui is an 88-year-old gentleman who was admitted through the emergency department with significant upper extremity and body pain secondary to a fall experienced earlier this morning. He has significant dementia and is unable to provide a meaningful history concerning the recent symptoms or events as well as review of systems. His reports that he has been having increased difficulty with hallucinations. She awoke early this morning to find him on the floor she is unsure of the circumstances of his fall. He has a large ecchymosis over his right eye and reports significant joint pain and general pain in his upper extremities. CT scan of the head was obtained and shows no obvious fracture or other abnormality. - Related Data Allergies/Adverse Reactions: Allergies Allergy/AdvReac Type Severity Reaction Status Date / Time atorvastatin [From Lipitor] AdvReac Muscle Verified 12/11/18 09:37 Aches Home Medications: Home Meds Aspirin [Adult Low Dose Aspirin EC] 81 mg PO DAILY 08/29/13 [History] Insulin Aspart [NovoLOG] 0 - 4 unit SQ ASDIRECTED 08/29/13 [History] Insulin Glarg,Human.Rec.Analog [Lantus] 15 unit SQ BEDTIME 08/29/13 [History] Isosorbide Mononitrate [Imdur] 30 mg PO DAILY 08/29/13 [History] Multivitamin [Multivitamins] 1 tab PO DAILY 08/29/13 [History] Tamsulosin [Flomax] 0.4 mg PO BEDTIME 08/29/13 [History] Tiotropium [Spiriva HandiHaler] 1 cap INH DAILY 08/29/13 [History] carvediloL [Coreg] 3.125 mg PO BID 08/29/13 [History] cycloSPORINE [Restasis] 1 each OP BID 08/29/13 [History] Nitroglycerin [Nitrostat] 0.4 mg SL ASDIRECTED 08/17/16 [History] Ranolazine [Ranexa] 500 mg PO BID 08/17/16 [History] Rosuvastatin Calcium 5 mg PO ASDIRECTED 08/17/16 [History] Clopidogrel [Plavix] 75 mg PO DAILY 08/26/16 [History] Glucosam/Chond-Msm1/C/Maxi/Bor [Roroxmz-Rfbko-ZAX Complex Cplt] 1 each PO DAILY 08/26/16 [History] Furosemide 20 mg PO DAILY PRN 11/23/16 [History] Rivastigmine [Exelon] 1.5 mg PO BIDM 11/23/16 [History] Memantine HCl [Namenda] 10 mg PO BID 05/07/17 [History] Past Medical History HEENT History: Reports: Hard of Hearing, Impaired Vision, Other (See Below) Other HEENT History: Wears hearing aid Cardiovascular History: Reports: Bypass, CAD, High Cholesterol, Hypertension, [place] Respiratory History: Reports: COPD Genitourinary History: Reports: BPH, Prostate Disorder Other Genitourinary History: Takes Flomax Musculoskeletal History: Reports: Other (See Below) Other Musculoskeletal History: Fx L humerous Neurological History: Reports: Neuropathy, Diabetic, Vertigo Psychiatric History: Reports: Alzheimers Disease, Dementia Endocrine/Metabolic History: Reports: Diabetes, Type II, IDDM Hematologic History: Reports: Anticoagulation Therapy Immunologic History: Reports: None Oncologic (Cancer) History: Reports: None Dermatologic History: Reports: Other (See Below) Other Dermatologic History: facial lesion reoccurring - Infectious Disease History Infectious Disease History: Reports: Chicken Pox, Measles, Mumps - Past Surgical History HEENT Surgical History: Reports: Adenoidectomy, Laser Surgery, Tonsillectomy Cardiovascular Surgical History: Reports: Carotid Endarterectomy, Coronary Artery Bypass Respiratory Surgical History: Reports: Thoracotomy GI Surgical History: Reports: Colonoscopy Musculoskeletal Surgical History: Reports: Shoulder Surgery Oncologic Surgical History: Reports: None Dermatological Surgical History: Reports: None Social & Family History - Family History Family Medical History: Noncontributory - Tobacco Use Smoking Status *Q: Unknown Ever Smoked - Caffeine Use Caffeine Use: Reports: Coffee Caffeine Use Comment: 2-3 cups daily - Living Situation & Occupation Living situation: Reports: , with Family Occupation: Retired (lives with Marilee of 64 years, [place]ell in [place], Summer at [employer], have 2 adult children one lives in [facility] , one live in [place].) H&P Review of Systems - Review of Systems: Review Of Systems: Unable To Obtain (Secondary to significant dementia) Reason Not Obtained: Dementia Exam - Exam Exam: See Below - Vital Signs Vital Signs: Last Vital Signs Temp 98.6 F 03/27/19 03:16 Pulse 57 L 03/27/19 08:33 Resp 18 03/27/19 08:33 BP 166/80 H 03/27/19 08:33 Pulse Ox 98 03/27/19 08:33 Weight: 182 lb - Exam Quality Assessment: DVT Prophylaxis General: Alert, Cooperative, Moderate Distress. No: Oriented HEENT: Conjunctiva Clear, Hearing Intact, Mucosa Moist & Spry, Normal Nasal Septum, Posterior Pharynx Clear, Pupils Equal, Other (Ecchymosis and swelling about the right eye) Neck: Supple, Trachea Midline, +2 Carotid Pulse wo Bruit Lungs: Clear to Auscultation, Normal Respiratory Effort Cardiovascular: Regular Rate, Regular Rhythm, Normal S1, Normal S2, Systolic Murmur. No: Diastolic Murmur GI/Abdominal Exam: Soft, Non-Tender, No Organomegaly, No Distention Back Exam: Normal Inspection, Full Range of Motion Extremities: No Pedal Edema, Arm Pain Skin: Warm, Dry, Intact, Ecchymosis Neurological: Cranial Nerves Intact, Strength Equal Bilateral, Normal Speech, Normal Tone, Sensation Intact. No: Focal Deficit Neuro Extensive - Mental Status: Alert, Normal Mood/Affect, Disorientation to Place, Disorientation to Time, Memory Loss-Remote Events, Memory Loss-Recent Events. No: Oriented x3, Normal Cognition, Memory Intact - Patient Data Lab Results Last 24 hrs: Laboratory Results - last 24 hr 03/27/19 Range/Units 11:02 WBC 9.5 (4.5-11.0) K/uL RBC 3.41 L (4.30-5.90) M/uL Hgb 11.4 L (12.0-15.0) g/dL Hct 35.0 L (40.0-54.0) % MCV 103 H (80-98) fL MCH 33 H (27-31) pg MCHC 33 (32-36) % Plt Count 258 (150-400) K/uL Neut % (Auto) 82 H (36-66) % Lymph % (Auto) 10 L (24-44) % [place] % (Auto) 7 H (2-6) % Eos % (Auto) 1 L (2-4) % Baso % (Auto) 0 (0-1) % Result Diagrams: 03/27/19 11:02 Sepsis Event Note - Evaluation Sepsis Screening Result: No Definite Risk - Focused Exam Vital Signs: Vital Signs Temp Pulse Resp BP Pulse Ox 03/27/19 08:33 57 L 18 166/80 H 98 03/27/19 04:10 5 L 16 191/84 H 92 L 03/27/19 03:16 98.6 F 56 L 16 186/75 H 94 L Date Exam was Performed: 03/27/19 Time Exam was Performed: 11:16 *Q Meaningful Use (ADM) - VTE Risk Assess *Q Each Risk Factor Represents 1 Point: None, Obesity ( BMI > 25 kg/m2) Total Score 1 Point Risk Factors: 1 Each Risk Factor Represents 2 Points: None Total Score 2 Point Risk Factors: 0 Each Risk Factor Represents 3 Points: Age 75 Years or Greater Total Score 3 Point Risk Factors: 3 Each Risk Factor Represents 5 Points: None Total Score 5 Point Risk Factors: 0 Venous Thromboembolism Risk Factor Score *Q: 4 Problem List Initiated/Reviewed/Updated: Yes Orders Last 24hrs: Active Orders 24 hr Category Date Time Status Patient Status Manage Transfer [TRANSFER] Routine ADT 03/27/19 10:55 Ordered COMPREHENSIVE METABOLIC PN,CMP [CHEM] Stat Lab 03/27/19 11:02 Received MAGNESIUM [CHEM] Stat Lab 03/27/19 11:02 Received Resuscitation Status Routine Resus Stat 03/27/19 10:59 Ordered Assessment/Plan Comment:: ASSESSMENT AND PLAN MUSCULOSKELETAL PAIN SECONDARY TO A FALL-significant pain especially in his upper extremities related to a fall experienced earlier this morning. No evidence of other fractures, CT scan of the head was unremarkable other than hematoma over his right eye. -Pain medication as needed -Physical therapy consult -May require short-term retirement placement TYPE 2 DIABETES MELLITUS -Continue usual dose of long-acting insulin -4 times daily glucometers -Low-dose sliding scale NovoLog CORONARY ARTERY DISEASE-currently asymptomatic -Continue outpatient medications DEMENTIA-increased memory difficulties with hallucinations over the past month -Continue Namenda and Exelon -Melatonin and 9 mg p.o. nightly -Depakote 250 mg p.o. twice daily MAINTENANCE ISSUES -DVT prophylaxis; Lovenox 40 mg subcu daily -GI prophylaxis; continue outpatient PPI therapy -Patel catheter; not indicated -Nutrition; consistent carb diet -Nicotine dependence; not required CODE STATUS-FULL CODE ADMISSION STATUS-patient will be admitted to inpatient status, expect at least a 2 night hospital stay for evaluation and management of problems as outlined above. At the time of this admission I do not reasonably expected evaluation and management of this problem will require more than a 96 hour hospital stay. DISPOSITION-anticipate discharge to home after the hospital stay. PRIMARY CARE PROVIDER-Dr. Carrion - Mortality Measure Prognosis:: Good
[2019-03-27] MEDS ORDERED: Ondansetron 4 MG/2 ML SDV IV PRN (14:12)
[2019-03-27] MEDS ORDERED: 50% Dextrose in Water 50 ML Syringe IV PRN (14:12)
[2019-03-27] MEDS ORDERED: Furosemide 20 MG Tab PO PRN (14:12)
[2019-03-27] MEDS ORDERED: Albuterol 0.083% 2.5 MG/3 ML Neb Soln NEB PRN (14:12)
[2019-03-27] MEDS ORDERED: Non-Formulary Medication 1 Each (Tiotropium [Spiriva Handihaler] 1 CAP) INH SCH (14:12)
[2019-03-27] MEDS ORDERED: Glucose Gel 15 GM in 37.5 GM Tube PO PRN (14:12)
[2019-03-27] MEDS ORDERED: Polyethylene Glycol 3350 Powder 17 GM Packet PO PRN (14:12)
[2019-03-27] MEDS ORDERED: oxyCODONE 5 MG Tab PO PRN (14:12)
[2019-03-27] MEDS ORDERED: ISOSORBIDE MONONITRATE 30 MG PO SCH (14:12)
[2019-03-27] MEDS: Acetaminophen 325 MG Tab PO PRN ×2 (14:32→23:26)
[2019-03-27] MEDS ORDERED: Glycopyrrolate 15.6 MCG Cap.W.Dev Kit of 6 IH SCH (14:45)
[2019-03-27] MEDS: Carvedilol 3.125 MG Tab PO SCH ×2 (15:34→21:28)
[2019-03-27] MEDS: Isosorbide Mononitrate 30 MG Tab.ER PO SCH (15:35)
[2019-03-27] MEDS: Memantine 10 MG Tab PO SCH ×2 (15:36→21:28)
[2019-03-27] MEDS: cycloSPORINE Ophth Drops U/D Box of 30 EYEBOTH SCH ×2 (15:36→21:29)
[2019-03-27] MEDS: Clopidogrel 75 MG Tab PO SCH (15:36)
[2019-03-27] MEDS: Enoxaparin 40 MG/0.4 ML Syringe SUBCUT SCH (16:51)
--- NOTE | 2019-03-27 17:19 | CRLCR ---
Indication: Pain following fall. Technique: Two views of the left humerus. Comparison: January 15, 2017. Findings: A plate and screws are identified at the level of the proximal humerus. The humeral head is seated within the glenoid. No definite acute fracture is identified. Impression: No definite acute fracture. Postoperative change of the proximal humerus. Dictated by Diane Bean MD @ Mar 27 2019 5:16PM Signed by Dr. Diane Bean @ Mar 27 2019 5:17PM
--- NOTE | 2019-03-27 17:21 | CRLCR ---
Indication: Pain following fall. Technique: Two views of the left forearm. Comparison: None Findings: Degenerative changes are identified at the level of the wrist and the elbow. No fracture or subluxation is identified. Impression: No acute fracture. Dictated by Diane Bean MD @ Mar 27 2019 5:19PM Signed by Dr. Diane Bean @ Mar 27 2019 5:20PM
--- NOTE | 2019-03-27 17:21 | CRLCR ---
Indication: Pain following fall. Technique: Two views of the right and left hand. Comparison: None Findings: Right hand: Degenerative changes of the right hand are identified. No acute fracture or subluxation is identified. Left hand: Degenerative changes of the left hand are identified. No acute fracture or subluxation is identified. Impression: Degenerative change bilaterally Dictated by Diane Bean MD @ Mar 27 2019 5:18PM Signed by Dr. Diane Bean @ Mar 27 2019 5:18PM
[2019-03-27] MEDS: Divalproex Sodium Delayed-Release 250 MG Tab.CR PO SCH (17:26)
[2019-03-27] MEDS: Insulin Lispro 100 Unit/ML 3 ML KwikPen SUBCUT SCH ×3 (17:38→22:09)
[2019-03-27] MEDS ORDERED: INSULIN GLARG HUMAN REC ANALOG 15 UNIT SQ SCH (21:00)
[2019-03-27] MEDS: Tamsulosin 0.4 MG Cap.ER PO SCH (21:28)
[2019-03-27] MEDS: Melatonin 3 MG Tab PO SCH (21:28)
[2019-03-27] MEDS: Glycopyrrolate 15.6 MCG Cap.W.Dev Kit of 6 IH SCH (21:29)
[2019-03-27] MEDS ORDERED: Insulin Lispro 100 Units/ML 3 ML Vial SUBCUT ONE (21:53)
[2019-03-27] MEDS: Insulin Glargine,Human Rec. Analog 100 Units/ML 3 ML Pen SUBCUT SCH (22:07)
[2019-03-28] MEDS: Glycopyrrolate 15.6 MCG Cap.W.Dev Kit of 6 IH SCH (07:06)
[2019-03-28] MEDS ORDERED: Lidocaine 2% Jelly 10 ML Urojet MUCMEM ONE (07:57)
[2019-03-28] MEDS: Insulin Lispro 100 Unit/ML 3 ML KwikPen SUBCUT SCH ×4 (08:13→22:07)
[2019-03-28] MEDS: Isosorbide Mononitrate 30 MG Tab.ER PO SCH (08:14)
[2019-03-28] MEDS: Carvedilol 3.125 MG Tab PO SCH ×2 (08:17→20:28)
[2019-03-28] MEDS: Memantine 10 MG Tab PO SCH ×2 (08:19→20:27)
[2019-03-28] MEDS: Divalproex Sodium Delayed-Release 250 MG Tab.CR PO SCH ×2 (08:19→16:20)
[2019-03-28] MEDS: Aspirin 81 MG Tab.EC PO SCH (08:19)
[2019-03-28] MEDS: cycloSPORINE Ophth Drops U/D Box of 30 EYEBOTH SCH ×2 (08:20→20:26)
[2019-03-28] MEDS: Clopidogrel 75 MG Tab PO SCH (09:10)
[2019-03-28] MEDS: Acetaminophen 325 MG Tab PO PRN (10:33)
--- NOTE | 2019-03-28 11:03 | PCM.PN ---
- General Info Date of Service: 03/28/19 Subjective Update: Mr. Bui has been stable since admission, good vital signs and no significant fevers. Bilateral arm pain better today, x-rays showed no evidence of fracture. He has had intermittent urinary retention requiring straight catheterization. Purnima confused but has not had significant hallucinations, paranoia, or agitation. - Patient Data Vitals - Most Recent: Last Vital Signs Temp 97.4 F 03/28/19 07:27 Pulse 60 03/28/19 08:17 Resp 16 03/28/19 07:27 BP 144/75 H 03/28/19 08:17 Pulse Ox 97 03/28/19 07:27 Weight - Most Recent: 182 lb I&O - Last 24 Hours: Intake & Output 03/27/19 03/28/19 03/28/19 22:59 06:59 14:59 Intake Total 120 Output Total 1050 600 Balance -930 -600 Lab Results Last 24 Hours: Laboratory Results - last 24 hr 03/27/19 03/27/19 03/28/19 Range/Units 11:02 11:02 05:30 WBC 9.5 7.9 (4.5-11.0) K/uL RBC 3.41 L 2.97 L (4.30-5.90) M/uL Hgb 11.4 L 9.7 L (12.0-15.0) g/dL Hct 35.0 L 30.5 L (40.0-54.0) % MCV 103 H 103 H (80-98) fL MCH 33 H 33 H (27-31) pg MCHC 33 32 (32-36) % Plt Count 258 226 (150-400) K/uL Neut % (Auto) 82 H 69 H (36-66) % Lymph % (Auto) 10 L 18 L (24-44) % [place] % (Auto) 7 H 11 H (2-6) % Eos % (Auto) 1 L 2 (2-4) % Baso % (Auto) 0 0 (0-1) % Sodium 139 L (140-148) mmol/L Potassium 4.3 (3.6-5.2) mmol/L Chloride 104 (100-108) mmol/L Carbon Dioxide 23 (21-32) mmol/L Anion Gap 16.3 H (5.0-14.0) mmol/L BUN 36 H (7-18) mg/dL Creatinine 1.3 (0.8-1.3) mg/dL Est Cr Clr Drug Dosing 41.34 mL/min Estimated GFR (MDRD) 52 L (>60) Glucose 270 H (74-106) mg/dL Calcium 8.6 (8.5-10.1) mg/dL Magnesium 2.3 (1.8-2.4) mg/dL Total Bilirubin 0.7 (0.2-1.0) mg/dL AST 17 (15-37) U/L ALT 20 (12-78) U/L Alkaline Phosphatase 110 (46-116) U/L Total Protein 7.2 (6.4-8.2) g/dL Albumin 3.7 (3.4-5.0) g/dL Globulin 3.5 (2.3-3.5) g/dL Albumin/Globulin Ratio 1.1 L (1.2-2.2) 03/28/19 Range/Units 05:30 WBC (4.5-11.0) K/uL RBC (4.30-5.90) M/uL Hgb (12.0-15.0) g/dL Hct (40.0-54.0) % MCV (80-98) fL MCH (27-31) pg MCHC (32-36) % Plt Count (150-400) K/uL Neut % (Auto) (36-66) % Lymph % (Auto) (24-44) % [place] % (Auto) (2-6) % Eos % (Auto) (2-4) % Baso % (Auto) (0-1) % Sodium 142 (140-148) mmol/L Potassium 4.0 (3.6-5.2) mmol/L Chloride 106 (100-108) mmol/L Carbon Dioxide 28 (21-32) mmol/L Anion Gap 7.9 (5.0-14.0) mmol/L BUN 38 H (7-18) mg/dL Creatinine 1.4 H (0.8-1.3) mg/dL Est Cr Clr Drug Dosing 38.38 mL/min Estimated GFR (MDRD) 48 L (>60) Glucose 165 H (74-106) mg/dL Calcium 8.7 (8.5-10.1) mg/dL Magnesium (1.8-2.4) mg/dL Total Bilirubin (0.2-1.0) mg/dL AST (15-37) U/L ALT (12-78) U/L Alkaline Phosphatase (46-116) U/L Total Protein (6.4-8.2) g/dL Albumin (3.4-5.0) g/dL Globulin (2.3-3.5) g/dL Albumin/Globulin Ratio (1.2-2.2) Med Orders - Current: Current Medications Acetaminophen (Tylenol) 650 mg PO Q4H PRN PRN Reason: Pain (Mild 1-3)/fever Last Admin: 03/28/19 10:33 Dose: 650 mg Albuterol (Proventil Neb Soln) 2.5 mg NEB Q4H PRN PRN Reason: Shortness Of Breath/wheezing Aspirin (Halfprin) 81 mg PO DAILY [facility] Last Admin: 03/28/19 08:19 Dose: 81 mg Carvedilol (Coreg) 3.125 mg PO BID [facility] Last Admin: 03/28/19 08:17 Dose: 3.125 mg Clopidogrel Bisulfate (Plavix) 75 mg PO DAILY [facility] Last Admin: 03/28/19 09:10 Dose: 75 mg Cyclosporine (Restasis) 0 each EYEBOTH BID [facility] Last Admin: 03/28/19 08:20 Dose: 1 applic Dextrose (Glutose 15) 15 gm PO ASDIRECTED PRN PRN Reason: Hypoglycemia Dextrose/Water (Dextrose 50% In Water) 50 ml IV ASDIRECTED PRN PRN Reason: Hypoglycemia Divalproex Sodium (Divalproex Sodium) 250 mg PO BIDMEALS [facility] Last Admin: 03/28/19 08:19 Dose: 250 mg Enoxaparin Sodium (Lovenox) 40 mg SUBCUT Q24H [facility] Last Admin: 03/27/19 16:51 Dose: 40 mg Furosemide (Lasix) 20 mg PO DAILY PRN PRN Reason: Edema Glycopyrrolate (Seebri Neohaler) 15.6 mcg IH BIDRT [facility] Last Admin: 03/28/19 07:06 Dose: 1 inhalation Insulin Glargine (Lantus Solostar) 15 units SUBCUT BEDTIME [facility] Last Admin: 03/27/19 22:07 Dose: 15 units Insulin Human Lispro (Humalog) 0 unit SUBCUT QIDACANDBED [facility]; Protocol Last Admin: 03/28/19 08:13 Dose: 2 units Isosorbide Mononitrate (Imdur) 30 mg PO DAILY [facility] Last Admin: 03/28/19 08:14 Dose: 30 mg Melatonin (Melatonin) 9 mg PO BEDTIME [facility] Last Admin: 03/27/19 21:28 Dose: 9 mg Memantine (Namenda) 10 mg PO BID [facility] Last Admin: 03/28/19 08:19 Dose: 10 mg Ondansetron HCl (Zofran) 4 mg IV Q4H PRN PRN Reason: Nausea/Vomiting Oxycodone HCl (Oxycodone) 5 mg PO Q4H PRN PRN Reason: Pain (moderate 4-6) Polyethylene Glycol (Miralax) 17 gm PO DAILY PRN PRN Reason: Constipation Ranolazine (Ranexa) 500 mg PO BID [facility] Last Admin: 03/28/19 08:14 Dose: 500 mg Rivastigmine (Exelon) 1.5 mg PO BIDM [facility] Last Admin: 03/28/19 08:19 Dose: 1.5 mg Rosuvastatin Calcium (Crestor) 5 mg PO MoWeFr@1700 [facility] Tamsulosin HCl (Flomax) 0.4 mg PO BEDTIME [facility] Last Admin: 03/27/19 21:28 Dose: 0.4 mg Discontinued Medications Hydromorphone HCl (Dilaudid) 0.5 mg IVPUSH ONETIME ONE Stop: 03/27/19 08:24 Last Admin: 03/27/19 08:31 Dose: 0.5 mg Insulin Human Lispro (Humalog) 0 unit SUBCUT QIDACANDBED [facility]; Protocol Last Admin: 03/27/19 21:51 Dose: Not Given Insulin Human Lispro (Humalog) 10 unit SUBCUT ONETIME ONE Stop: 03/27/19 21:54 Last Admin: 03/27/19 22:09 Dose: 10 units Lidocaine HCl (Xylocaine 2% Jelly) 10 ml MUCMEM ONETIME ONE Stop: 03/28/19 07:58 Last Admin: 03/28/19 08:23 Dose: 10 ml - Exam Quality Assessment: DVT Prophylaxis General: Alert, Cooperative, No Acute Distress. No: Oriented Lungs: Clear to Auscultation, Normal Respiratory Effort Cardiovascular: Regular Rate, Regular Rhythm, No Murmurs GI/Abdominal Exam: Soft, Non-Tender, No Organomegaly, No Distention Extremities: Non-Tender, No Pedal Edema Sepsis Event Note - Evaluation Sepsis Screening Result: No Definite Risk - Focused Exam Vital Signs: Vital Signs Temp Temp Pulse Pulse Resp BP BP 03/28/19 08:17 60 144/75 H 03/28/19 08:14 144/75 H 03/28/19 07:27 97.4 F 58 L 16 122/75 03/28/19 03:00 98.8 F 58 L 16 108/54 L Pulse Ox 03/28/19 08:17 03/28/19 08:14 03/28/19 07:27 97 03/28/19 03:00 96 Date Exam was Performed: 03/28/19 Time Exam was Performed: 11:10 - Problem List Review Problem List Initiated/Reviewed/Updated: Yes - My Orders Last 24 Hours: My Active Orders 03/27/19 10:59 Resuscitation Status Routine 03/27/19 14:12 Patient Status [ADT] Routine Ambulate [RC] QID Blood Glucose Check, Bedside [RC] QIDACANDBED Diabetes Education [RC] Click to Edit Height and Weight [RC] DAILY Intake and Output [RC] QSHIFT Notify Provider Vital Signs [RC] ASDIRECTED Notify Provider [RC] PRN Oxygen Therapy [RC] PRN RT Aerosol Therapy [RC] ASDIRECTED Up With Assistance [RC] ASDIRECTED Up to Chair [RC] QID VTE/DVT Education [RC] Per Unit Routine Vital Signs [RC] Q4H PT Evaluation and Treatment [CONS] Routine Acetaminophen [Tylenol] 650 mg PO Q4H PRN Albuterol [Proventil Neb Soln] 2.5 mg NEB Q4H PRN Dextrose 50% in Water 50 ml IV ASDIRECTED PRN Dextrose [Glutose 15] 15 gm PO ASDIRECTED PRN Furosemide [Lasix] 20 mg PO DAILY PRN Ondansetron [Zofran] 4 mg IV Q4H PRN Polyethylene Glycol 3350 [MiraLAX] 17 gm PO DAILY PRN oxyCODONE 5 mg PO Q4H PRN 03/27/19 14:45 Clopidogrel [Plavix] 75 mg PO DAILY Isosorbide Mononitrate [Imdur] 30 mg PO DAILY Memantine [Namenda] 10 mg PO BID carvediloL [Coreg] 3.125 mg PO BID cycloSPORINE [Restasis] 0 each EYEBOTH BID 03/27/19 15:02 Insert Urinary Catheter [OM.PC] Stat 03/27/19 15:15 Ranolazine [Ranexa] 500 mg PO BID 03/27/19 16:00 Enoxaparin [Lovenox] 40 mg SUBCUT Q24H 03/27/19 17:00 Divalproex Sodium 250 mg PO BIDMEALS Rivastigmine [Exelon] 1.5 mg PO BIDM 03/27/19 21:00 Glycopyrrolate [Seebri Neohaler] 15.6 mcg IH BIDRT Insulin Glarg,Human.Rec.Analog [LantUS Solostar] 15 units SUBCUT BEDTIME Melatonin 9 mg PO BEDTIME Tamsulosin [Flomax] 0.4 mg PO BEDTIME 03/27/19 21:53 Insulin Lispro [HumaLOG] See Protocol SUBCUT QIDACANDBED 03/27/19 Lunch Consistent Carbohydrate Diet [DIET] 03/28/19 09:00 Aspirin [Halfprin] 81 mg PO DAILY 03/28/19 11:30 GLUCOSE POC LAB TO COLLECT [POC] QIDACANDBED 03/28/19 16:30 GLUCOSE POC LAB TO COLLECT [POC] QIDACANDBED 03/28/19 17:00 Rosuvastatin [Crestor] 5 mg PO MoWeFr@1700 03/28/19 21:00 GLUCOSE POC LAB TO COLLECT [POC] QIDACANDBED 03/29/19 07:30 GLUCOSE POC LAB TO COLLECT [POC] QIDACANDBED 03/29/19 11:30 GLUCOSE POC LAB TO COLLECT [POC] QIDACANDBED 03/29/19 16:30 GLUCOSE POC LAB TO COLLECT [POC] QIDACANDBED 03/29/19 21:00 GLUCOSE POC LAB TO COLLECT [POC] QIDACANDBED 03/30/19 07:30 GLUCOSE POC LAB TO COLLECT [POC] QIDACANDBED 03/30/19 11:30 GLUCOSE POC LAB TO COLLECT [POC] QIDACANDBED 03/30/19 16:30 GLUCOSE POC LAB TO COLLECT [POC] QIDACANDBED 03/30/19 21:00 GLUCOSE POC LAB TO COLLECT [POC] QIDACANDBED 03/31/19 07:30 GLUCOSE POC LAB TO COLLECT [POC] QIDACANDBED 03/31/19 11:30 GLUCOSE POC LAB TO COLLECT [POC] QIDACANDBED 03/31/19 16:30 GLUCOSE POC LAB TO COLLECT [POC] QIDACANDBED 03/31/19 21:00 GLUCOSE POC LAB TO COLLECT [POC] QIDACANDBED 04/01/19 07:30 GLUCOSE POC LAB TO COLLECT [POC] QIDACANDBED 04/01/19 11:30 GLUCOSE POC LAB TO COLLECT [POC] QIDACANDBED - Plan Plan:: ASSESSMENT AND PLAN MUSCULOSKELETAL PAIN SECONDARY TO A FALL-upper extremity pain improved today, x- rays showed no evidence of fracture -Pain medication as needed -Physical therapy consult - is considering hospice consult for ongoing care and management TYPE 2 DIABETES MELLITUS -Continue usual dose of long-acting insulin -4 times daily glucometers -Low-dose sliding scale NovoLog CORONARY ARTERY DISEASE-currently asymptomatic -Continue outpatient medications DEMENTIA-increased memory difficulties with hallucinations over the past month. Able with current medications, no significant hallucinations or paranoia noted thus far during hospitalization. -Continue Namenda and Exelon -Melatonin and 9 mg p.o. nightly -Depakote 250 mg p.o. twice daily URINARY RETENTION-long standing history -Continue Flomax -Intermittent straight catheterization as needed PALLIATIVE CARE-his does not want further aggressive interventions or management and is considering hospice consult MAINTENANCE ISSUES -DVT prophylaxis; Lovenox 40 mg subcu daily -GI prophylaxis; continue outpatient PPI therapy -Patel catheter; not indicated -Nutrition; consistent carb diet -Nicotine dependence; not required CODE STATUS-DNR/DNI ADMISSION STATUS-patient will be admitted to inpatient status, expect at least a 2 night hospital stay for evaluation and management of problems as outlined above. At the time of this admission I do not reasonably expected evaluation and management of this problem will require more than a 96 hour hospital stay. DISPOSITION-anticipate discharge to home after the hospital stay. PRIMARY CARE PROVIDER-Dr. Carrion
[2019-03-28] MEDS: Enoxaparin 40 MG/0.4 ML Syringe SUBCUT SCH (16:19)
[2019-03-28] MEDS ORDERED: Rosuvastatin 10 MG Tab PO SCH (17:00)
[2019-03-28] MEDS ORDERED: Bisacodyl 10 MG Supp RECTAL ONE (20:00)
[2019-03-28] MEDS: Tamsulosin 0.4 MG Cap.ER PO SCH (20:26)
[2019-03-28] MEDS: Melatonin 3 MG Tab PO SCH (20:26)
[2019-03-28] MEDS ORDERED: Sodium Phosphate,Monobasic/Sodium Phosphate,Dibasic Enema 133 ML Bottle RECTAL ONE (22:00)
[2019-03-28] MEDS: Insulin Glargine,Human Rec. Analog 100 Units/ML 3 ML Pen SUBCUT SCH (22:08)
[2019-03-29] MEDS: Insulin Lispro 100 Unit/ML 3 ML KwikPen SUBCUT SCH ×4 (09:50→20:53)
--- NOTE | 2019-03-29 09:50 | PCM.PN ---
- General Info Date of Service: 03/29/19 Subjective Update: Mr. Bui is remained stable over the last 24 hours, appetite and overall strength seems to be improving. Vital signs have been stable and he has remained afebrile. Continues to experience difficulty with urinary retention requiring intermittent straight catheterization. He is unable to provide meaningful history concerning symptoms or review of systems because of underlying dementia. - Patient Data Vitals - Most Recent: Last Vital Signs Temp 97.6 F 03/29/19 09:20 Pulse 54 L 03/29/19 09:20 Resp 16 03/29/19 09:20 BP 151/72 H 03/29/19 09:20 Pulse Ox 97 03/29/19 09:20 Weight - Most Recent: 178 lb I&O - Last 24 Hours: Intake & Output 03/28/19 03/29/19 03/29/19 22:59 06:59 14:59 Output Total 450 Balance -450 Med Orders - Current: Current Medications Acetaminophen (Tylenol) 650 mg PO Q4H PRN PRN Reason: Pain (Mild 1-3)/fever Last Admin: 03/28/19 10:33 Dose: 650 mg Albuterol (Proventil Neb Soln) 2.5 mg NEB Q4H PRN PRN Reason: Shortness Of Breath/wheezing Aspirin (Halfprin) 81 mg PO DAILY [facility] Last Admin: 03/28/19 08:19 Dose: 81 mg Carvedilol (Coreg) 3.125 mg PO BID [facility] Last Admin: 03/28/19 20:28 Dose: 3.125 mg Clopidogrel Bisulfate (Plavix) 75 mg PO DAILY [facility] Last Admin: 03/28/19 09:10 Dose: 75 mg Cyclosporine (Restasis) 0 each EYEBOTH BID [facility] Last Admin: 03/28/19 20:26 Dose: 1 applic Dextrose (Glutose 15) 15 gm PO ASDIRECTED PRN PRN Reason: Hypoglycemia Dextrose/Water (Dextrose 50% In Water) 50 ml IV ASDIRECTED PRN PRN Reason: Hypoglycemia Divalproex Sodium (Divalproex Sodium) 250 mg PO BIDMEALS [facility] Last Admin: 03/28/19 16:20 Dose: 250 mg Enoxaparin Sodium (Lovenox) 40 mg SUBCUT Q24H [facility] Last Admin: 03/28/19 16:19 Dose: 40 mg Furosemide (Lasix) 20 mg PO DAILY PRN PRN Reason: Edema Insulin Glargine (Lantus Solostar) 15 units SUBCUT BEDTIME [facility] Last Admin: 03/28/19 22:08 Dose: 15 units Insulin Human Lispro (Humalog) 0 unit SUBCUT QIDACANDBED [facility]; Protocol Last Admin: 03/28/19 22:07 Dose: 4 units Isosorbide Mononitrate (Imdur) 30 mg PO DAILY [facility] Last Admin: 03/28/19 08:14 Dose: 30 mg Melatonin (Melatonin) 9 mg PO BEDTIME [facility] Last Admin: 03/28/19 20:26 Dose: 9 mg Memantine (Namenda) 10 mg PO BID [facility] Last Admin: 03/28/19 20:27 Dose: 10 mg Ondansetron HCl (Zofran) 4 mg IV Q4H PRN PRN Reason: Nausea/Vomiting Oxycodone HCl (Oxycodone) 5 mg PO Q4H PRN PRN Reason: Pain (moderate 4-6) Polyethylene Glycol (Miralax) 17 gm PO DAILY PRN PRN Reason: Constipation Last Admin: 03/28/19 16:22 Dose: 17 gm Ranolazine (Ranexa) 500 mg PO BID [facility] Last Admin: 03/28/19 20:27 Dose: 500 mg Rivastigmine (Exelon) 1.5 mg PO BIDM [facility] Last Admin: 03/28/19 16:21 Dose: 1.5 mg Rosuvastatin Calcium (Crestor) 5 mg PO MoWeFr@1700 [facility] Last Admin: 03/28/19 16:21 Dose: 5 mg Tamsulosin HCl (Flomax) 0.4 mg PO BEDTIME [facility] Last Admin: 03/28/19 20:26 Dose: 0.4 mg Discontinued Medications Bisacodyl (Dulcolax) 10 mg RECTAL ONETIME ONE Stop: 03/28/19 20:01 Last Admin: 03/28/19 20:25 Dose: 10 mg Glycopyrrolate (Seebri Neohaler) 15.6 mcg IH BIDRT [facility] Last Admin: 03/28/19 07:06 Dose: 1 inhalation Hydromorphone HCl (Dilaudid) 0.5 mg IVPUSH ONETIME ONE Stop: 03/27/19 08:24 Last Admin: 03/27/19 08:31 Dose: 0.5 mg Insulin Human Lispro (Humalog) 0 unit SUBCUT QIDACANDBED [facility]; Protocol Last Admin: 03/27/19 21:51 Dose: Not Given Insulin Human Lispro (Humalog) 10 unit SUBCUT ONETIME ONE Stop: 03/27/19 21:54 Last Admin: 03/27/19 22:09 Dose: 10 units Lidocaine HCl (Xylocaine 2% Jelly) 10 ml MUCMEM ONETIME ONE Stop: 03/28/19 07:58 Last Admin: 03/28/19 08:23 Dose: 10 ml Sodium Biphosphate/Sodium Phosphate (Fleet Enema) 133 ml RECTAL ONETIME ONE Stop: 03/28/19 22:01 Last Admin: 03/28/19 22:16 Dose: 133 ml - Exam Quality Assessment: DVT Prophylaxis General: Alert, Cooperative, No Acute Distress. No: Oriented Lungs: Clear to Auscultation, Normal Respiratory Effort Cardiovascular: Regular Rate, Regular Rhythm, No Murmurs GI/Abdominal Exam: Soft, Non-Tender, No Organomegaly, No Distention Extremities: Non-Tender, No Pedal Edema Sepsis Event Note - Evaluation Sepsis Screening Result: No Definite Risk - Focused Exam Vital Signs: Vital Signs Temp Temp Pulse Resp BP Pulse Ox 03/29/19 09:20 97.6 F 54 L 16 151/72 H 97 03/29/19 02:55 97.6 F 62 16 144/67 H 96 03/28/19 22:46 98.4 F 60 14 176/65 H 96 Date Exam was Performed: 03/29/19 Time Exam was Performed: 09:35 - Problem List Review Problem List Initiated/Reviewed/Updated: Yes - My Orders Last 24 Hours: My Active Orders 03/28/19 09:00 Aspirin [Halfprin] 81 mg PO DAILY 03/28/19 17:00 Rosuvastatin [Crestor] 5 mg PO MoWeFr@1700 03/28/19 23:19 Urinary Catheter Assessment [RC] ASDIRECTED 03/28/19 23:30 Insert Patel Catheter [Insert Urinary Catheter] [OM.PC] Q24H 03/29/19 11:30 GLUCOSE POC LAB TO COLLECT [POC] QIDACANDBED 03/29/19 16:30 GLUCOSE POC LAB TO COLLECT [POC] QIDACANDBED 03/29/19 21:00 GLUCOSE POC LAB TO COLLECT [POC] QIDACANDBED 03/30/19 07:30 GLUCOSE POC LAB TO COLLECT [POC] QIDACANDBED 03/30/19 11:30 GLUCOSE POC LAB TO COLLECT [POC] QIDACANDBED 03/30/19 16:30 GLUCOSE POC LAB TO COLLECT [POC] QIDACANDBED 03/30/19 21:00 GLUCOSE POC LAB TO COLLECT [POC] QIDACANDBED 03/31/19 07:30 GLUCOSE POC LAB TO COLLECT [POC] QIDACANDBED 03/31/19 11:30 GLUCOSE POC LAB TO COLLECT [POC] QIDACANDBED 03/31/19 16:30 GLUCOSE POC LAB TO COLLECT [POC] QIDACANDBED 03/31/19 21:00 GLUCOSE POC LAB TO COLLECT [POC] QIDACANDBED 04/01/19 07:30 GLUCOSE POC LAB TO COLLECT [POC] QIDACANDBED 04/01/19 11:30 GLUCOSE POC LAB TO COLLECT [POC] QIDACANDBED - Plan Plan:: ASSESSMENT AND PLAN MUSCULOSKELETAL PAIN SECONDARY TO A FALL-improved overall strength and appetite -Pain medication as needed -Physical therapy follow-up - is planning on hospice admission after discharge from the hospital TYPE 2 DIABETES MELLITUS -Continue usual dose of long-acting insulin -4 times daily glucometers -Low-dose sliding scale NovoLog CORONARY ARTERY DISEASE-currently asymptomatic -Continue outpatient medications DEMENTIA-increased memory difficulties with hallucinations over the past month. Stable with current medications, no significant hallucinations or paranoia noted thus far during hospitalization. -Continue Namenda and Exelon -Melatonin and 9 mg p.o. nightly -Depakote 250 mg p.o. twice daily URINARY RETENTION-long standing history -Continue Flomax -Intermittent straight catheterization as needed PALLIATIVE CARE-his does not want further aggressive interventions or management and is considering hospice consult MAINTENANCE ISSUES -DVT prophylaxis; Lovenox 40 mg subcu daily -GI prophylaxis; continue outpatient PPI therapy -Patel catheter; not indicated -Nutrition; consistent carb diet -Nicotine dependence; not required CODE STATUS-DNR/DNI ADMISSION STATUS-patient will be admitted to inpatient status, expect at least a 2 night hospital stay for evaluation and management of problems as outlined above. At the time of this admission I do not reasonably expected evaluation and management of this problem will require more than a 96 hour hospital stay. DISPOSITION-anticipate discharge to home after the hospital stay. PRIMARY CARE PROVIDER-Dr. Carrion
[2019-03-29] MEDS: Aspirin 81 MG Tab.EC PO SCH (09:51)
[2019-03-29] MEDS: Clopidogrel 75 MG Tab PO SCH (09:51)
[2019-03-29] MEDS: Isosorbide Mononitrate 30 MG Tab.ER PO SCH (09:51)
[2019-03-29] MEDS: Carvedilol 3.125 MG Tab PO SCH ×2 (09:52→20:47)
[2019-03-29] MEDS: cycloSPORINE Ophth Drops U/D Box of 30 EYEBOTH SCH ×2 (09:53→20:55)
[2019-03-29] MEDS: Memantine 10 MG Tab PO SCH ×2 (09:53→20:55)
[2019-03-29] MEDS: Divalproex Sodium Delayed-Release 250 MG Tab.CR PO SCH ×2 (09:53→17:32)
[2019-03-29] MEDS: Enoxaparin 40 MG/0.4 ML Syringe SUBCUT SCH (17:30)
[2019-03-29] MEDS: Acetaminophen 325 MG Tab PO PRN (17:31)
[2019-03-29] MEDS: Melatonin 3 MG Tab PO SCH (20:46)
[2019-03-29] MEDS: Tamsulosin 0.4 MG Cap.ER PO SCH (20:46)
[2019-03-29] MEDS: Insulin Glargine,Human Rec. Analog 100 Units/ML 3 ML Pen SUBCUT SCH (20:53)
[2019-03-30] MEDS: Insulin Lispro 100 Unit/ML 3 ML KwikPen SUBCUT SCH ×4 (08:14→21:27)
--- NOTE | 2019-03-30 10:15 | PCM.PN ---
- General Info Date of Service: 03/30/19 Subjective Update: Mr. Bui has been stable over the last 24 hours. Further improvement in overall strength, ambulating in the hallways with minimal assistance. Unable to discharge today because of the current snowstorm, his is unable to come in to get him. He is unable to provide meaningful history concerning symptoms or review of systems because of his significant underlying dementia. - Patient Data Vitals - Most Recent: Last Vital Signs Temp 96.1 F 03/30/19 08:09 Pulse 76 03/30/19 08:09 Resp 16 03/30/19 08:09 BP 156/63 H 03/30/19 08:09 Pulse Ox 98 03/30/19 08:09 Weight - Most Recent: 180 lb 1.883 oz I&O - Last 24 Hours: Intake & Output 03/29/19 03/30/19 03/30/19 22:59 06:59 14:59 Intake Total 360 500 Output Total 300 Balance 360 -300 500 Med Orders - Current: Current Medications Acetaminophen (Tylenol) 650 mg PO Q4H PRN PRN Reason: Pain (Mild 1-3)/fever Last Admin: 03/29/19 17:31 Dose: 650 mg Albuterol (Proventil Neb Soln) 2.5 mg NEB Q4H PRN PRN Reason: Shortness Of Breath/wheezing Aspirin (Halfprin) 81 mg PO DAILY [facility] Last Admin: 03/29/19 09:51 Dose: 81 mg Carvedilol (Coreg) 3.125 mg PO BID [facility] Last Admin: 03/29/19 20:47 Dose: 3.125 mg Clopidogrel Bisulfate (Plavix) 75 mg PO DAILY [facility] Last Admin: 03/29/19 09:51 Dose: 75 mg Cyclosporine (Restasis) 0 each EYEBOTH BID [facility] Last Admin: 03/29/19 20:55 Dose: 1 drop Dextrose (Glutose 15) 15 gm PO ASDIRECTED PRN PRN Reason: Hypoglycemia Dextrose/Water (Dextrose 50% In Water) 50 ml IV ASDIRECTED PRN PRN Reason: Hypoglycemia Divalproex Sodium (Divalproex Sodium) 250 mg PO BIDMEALS [facility] Last Admin: 03/29/19 17:32 Dose: 250 mg Enoxaparin Sodium (Lovenox) 40 mg SUBCUT Q24H [facility] Last Admin: 03/29/19 17:30 Dose: 40 mg Furosemide (Lasix) 20 mg PO DAILY PRN PRN Reason: Edema Insulin Glargine (Lantus Solostar) 15 units SUBCUT BEDTIME [facility] Last Admin: 03/29/19 20:53 Dose: 15 units Insulin Human Lispro (Humalog) 0 unit SUBCUT QIDACANDBED [facility]; Protocol Last Admin: 03/30/19 08:14 Dose: Not Given Isosorbide Mononitrate (Imdur) 30 mg PO DAILY [facility] Last Admin: 03/29/19 09:51 Dose: 30 mg Melatonin (Melatonin) 9 mg PO BEDTIME [facility] Last Admin: 03/29/19 20:46 Dose: 9 mg Memantine (Namenda) 10 mg PO BID [facility] Last Admin: 03/29/19 20:55 Dose: 10 mg Ondansetron HCl (Zofran) 4 mg IV Q4H PRN PRN Reason: Nausea/Vomiting Oxycodone HCl (Oxycodone) 5 mg PO Q4H PRN PRN Reason: Pain (moderate 4-6) Polyethylene Glycol (Miralax) 17 gm PO DAILY PRN PRN Reason: Constipation Last Admin: 03/28/19 16:22 Dose: 17 gm Ranolazine (Ranexa) 500 mg PO BID [facility] Last Admin: 03/29/19 20:55 Dose: 500 mg Rivastigmine (Exelon) 1.5 mg PO BIDM [facility] Last Admin: 03/29/19 17:32 Dose: 1.5 mg Rosuvastatin Calcium (Crestor) 5 mg PO MoWeFr@1700 [facility] Last Admin: 03/28/19 16:21 Dose: 5 mg Tamsulosin HCl (Flomax) 0.4 mg PO BEDTIME [facility] Last Admin: 03/29/19 20:46 Dose: 0.4 mg Discontinued Medications Bisacodyl (Dulcolax) 10 mg RECTAL ONETIME ONE Stop: 03/28/19 20:01 Last Admin: 03/28/19 20:25 Dose: 10 mg Glycopyrrolate (Seebri Neohaler) 15.6 mcg IH BIDRT [facility] Last Admin: 03/28/19 07:06 Dose: 1 inhalation Hydromorphone HCl (Dilaudid) 0.5 mg IVPUSH ONETIME ONE Stop: 03/27/19 08:24 Last Admin: 03/27/19 08:31 Dose: 0.5 mg Insulin Human Lispro (Humalog) 0 unit SUBCUT QIDACANDBED [facility]; Protocol Last Admin: 03/27/19 21:51 Dose: Not Given Insulin Human Lispro (Humalog) 10 unit SUBCUT ONETIME ONE Stop: 03/27/19 21:54 Last Admin: 03/27/19 22:09 Dose: 10 units Lidocaine HCl (Xylocaine 2% Jelly) 10 ml MUCMEM ONETIME ONE Stop: 03/28/19 07:58 Last Admin: 03/28/19 08:23 Dose: 10 ml Sodium Biphosphate/Sodium Phosphate (Fleet Enema) 133 ml RECTAL ONETIME ONE Stop: 03/28/19 22:01 Last Admin: 03/28/19 22:16 Dose: 133 ml - Exam Quality Assessment: DVT Prophylaxis General: Alert, Cooperative, No Acute Distress. No: Oriented Lungs: Clear to Auscultation, Normal Respiratory Effort Cardiovascular: Regular Rate, Regular Rhythm, Murmurs GI/Abdominal Exam: Soft, Non-Tender, No Organomegaly, No Distention Extremities: Non-Tender, No Pedal Edema Sepsis Event Note - Evaluation Sepsis Screening Result: No Definite Risk - Focused Exam Vital Signs: Vital Signs Temp Temp Pulse Resp BP Pulse Ox 03/30/19 08:09 96.1 F 76 16 156/63 H 98 03/30/19 02:49 97.2 F 47 L 16 121/56 L 94 L 03/29/19 23:00 16 Date Exam was Performed: 03/30/19 Time Exam was Performed: 10:13 - Problem List Review Problem List Initiated/Reviewed/Updated: Yes - My Orders Last 24 Hours: My Active Orders 03/30/19 11:30 GLUCOSE POC LAB TO COLLECT [POC] QIDACANDBED 03/30/19 16:30 GLUCOSE POC LAB TO COLLECT [POC] QIDACANDBED 03/30/19 21:00 GLUCOSE POC LAB TO COLLECT [POC] QIDACANDBED 03/31/19 07:30 GLUCOSE POC LAB TO COLLECT [POC] QIDACANDBED 03/31/19 11:30 GLUCOSE POC LAB TO COLLECT [POC] QIDACANDBED 03/31/19 16:30 GLUCOSE POC LAB TO COLLECT [POC] QIDACANDBED 03/31/19 21:00 GLUCOSE POC LAB TO COLLECT [POC] QIDACANDBED 04/01/19 07:30 GLUCOSE POC LAB TO COLLECT [POC] QIDACANDBED 04/01/19 11:30 GLUCOSE POC LAB TO COLLECT [POC] QIDACANDBED - Plan Plan:: ASSESSMENT AND PLAN MUSCULOSKELETAL PAIN SECONDARY TO A FALL-improved overall strength and appetite -Pain medication as needed -Physical therapy follow-up - is planning on hospice admission after discharge from the hospital TYPE 2 DIABETES MELLITUS -Continue usual dose of long-acting insulin -4 times daily glucometers -Low-dose sliding scale NovoLog CORONARY ARTERY DISEASE-currently asymptomatic -Continue outpatient medications DEMENTIA-increased memory difficulties with hallucinations over the past month. Stable with current medications, no significant hallucinations or paranoia noted thus far during hospitalization. -Continue Namenda and Exelon -Melatonin and 9 mg p.o. nightly -Depakote 250 mg p.o. twice daily URINARY RETENTION-long standing history, urination has improved over the last 24 hours -Continue Flomax -Intermittent straight catheterization as needed PALLIATIVE CARE-his does not want further aggressive interventions or management and is considering hospice consult MAINTENANCE ISSUES -DVT prophylaxis; Lovenox 40 mg subcu daily -GI prophylaxis; continue outpatient PPI therapy -Patel catheter; not indicated -Nutrition; consistent carb diet -Nicotine dependence; not required CODE STATUS-DNR/DNI ADMISSION STATUS-patient will be admitted to inpatient status, expect at least a 2 night hospital stay for evaluation and management of problems as outlined above. At the time of this admission I do not reasonably expected evaluation and management of this problem will require more than a 96 hour hospital stay. DISPOSITION-anticipate discharge to home after the hospital stay. PRIMARY CARE PROVIDER-Dr. Carrion
[2019-03-30] MEDS: cycloSPORINE Ophth Drops U/D Box of 30 EYEBOTH SCH ×2 (10:34→20:09)
[2019-03-30] MEDS: Isosorbide Mononitrate 30 MG Tab.ER PO SCH (10:36)
[2019-03-30] MEDS: Aspirin 81 MG Tab.EC PO SCH (10:36)
[2019-03-30] MEDS: Clopidogrel 75 MG Tab PO SCH (10:36)
[2019-03-30] MEDS: Memantine 10 MG Tab PO SCH ×2 (10:36→20:09)
[2019-03-30] MEDS: Carvedilol 3.125 MG Tab PO SCH ×2 (10:37→20:10)
[2019-03-30] MEDS: Divalproex Sodium Delayed-Release 250 MG Tab.CR PO SCH ×2 (10:37→16:23)
[2019-03-30] MEDS: Enoxaparin 40 MG/0.4 ML Syringe SUBCUT SCH (16:23)
[2019-03-30] MEDS: Melatonin 3 MG Tab PO SCH (20:09)
[2019-03-30] MEDS: Tamsulosin 0.4 MG Cap.ER PO SCH (20:11)
[2019-03-30] MEDS: Insulin Glargine,Human Rec. Analog 100 Units/ML 3 ML Pen SUBCUT SCH (21:28)
[2019-03-31] MEDS: Insulin Lispro 100 Unit/ML 3 ML KwikPen SUBCUT SCH ×2 (08:26→11:50)
[2019-03-31] MEDS: Divalproex Sodium Delayed-Release 250 MG Tab.CR PO SCH (08:28)
[2019-03-31] MEDS: Carvedilol 3.125 MG Tab PO SCH (08:28)
[2019-03-31] MEDS: Aspirin 81 MG Tab.EC PO SCH (08:29)
[2019-03-31] MEDS: Memantine 10 MG Tab PO SCH (08:29)
[2019-03-31] MEDS: Isosorbide Mononitrate 30 MG Tab.ER PO SCH (08:29)
[2019-03-31] MEDS: cycloSPORINE Ophth Drops U/D Box of 30 EYEBOTH SCH (08:29)
[2019-03-31] MEDS: Clopidogrel 75 MG Tab PO SCH (08:29)
--- NOTE | 2019-03-31 10:42 | PCM.DCSUM1 ---
Discharge Summary - Hospital Course Brief History: Mr. Bui is an 88-year-old gentleman who was admitted through the emergency department after a fall at home resulting in right face ecchymosis , secondary to generalized weakness and underlying dementia. - Discharge Data Discharge Date: 03/31/19 Discharge Disposition: DC/Tfer to Hospice - Home 51 Condition: Fair - Referral to Home Health Primary Care Physician: PCP None - Discharge Diagnosis/Problem(s) (1) Weakness SNOMED Code(s): 44491205 ICD Code: R53.1 - WEAKNESS Status: Acute Current Visit: Yes (2) Fall SNOMED Code(s): 5449388, 839716830 ICD Code: W19.XXXA - UNSPECIFIED FALL, INITIAL ENCOUNTER Status: Acute Current Visit: Yes (3) Congestive heart failure (CHF) SNOMED Code(s): 93287281 ICD Code: I50.9 - HEART FAILURE, UNSPECIFIED Status: Chronic Priority: Medium Current Visit: No (4) Diabetes type 2, uncontrolled SNOMED Code(s): 620626645, 298214328 ICD Code: E11.65 - TYPE 2 DIABETES MELLITUS WITH HYPERGLYCEMIA Status: Chronic Priority: High Current Visit: No (5) Dementia SNOMED Code(s): 73797097 ICD Code: F03.90 - UNSPECIFIED DEMENTIA WITHOUT BEHAVIORAL DISTURBANCE Status: Chronic Priority: High Current Visit: No Qualifiers: Dementia type: Alzheimer's disease Alzheimer's disease onset: unspecified onset Dementia behavioral disturbance: without behavioral disturbance Qualified Code(s): G30.9 - Alzheimer's disease, unspecified; F02.80 - Dementia in other diseases classified elsewhere without behavioral disturbance (6) CAD (coronary artery disease) SNOMED Code(s): 53674625 ICD Code: I25.10 - ATHSCL HEART DISEASE OF [place] CORONARY ARTERY W/O ANG PCTRS Status: Chronic Current Visit: No - Patient Summary/Data Consults: Consultations 03/27/19 14:12 PT Evaluation and Treatment [CONS] Routine Please Evaluate and Treat. PT Reason for Consult: Weakness, status post fall This query below is only for informational purposes and is not editable. Hospital Course: Mr. Bui is an 88-year-old gentleman who was admitted through the emergency department with significant upper extremity and body pain secondary to a fall experienced earlier this morning. He has significant dementia and is unable to provide a meaningful history concerning the recent symptoms or events as well as review of systems. His reports that he has been having increased difficulty with hallucinations. She awoke early this morning to find him on the floor she is unsure of the circumstances of his fall. He has a large ecchymosis over his right eye and reports significant joint pain and general pain in his upper extremities. CT scan of the head was obtained and shows no obvious fracture or other abnormality. On admission he was given IV fluids for hydration as well as pain medications as needed. Because of his worsening dementia with paranoia, hallucinations, and mild agitation. He was started on Depakote 250 mg twice daily as well as melatonin 9 mg p.o. nightly. These interventions he was not noted to have significant hallucinations or paranoia during his hospital stay. He was seen daily by physical therapy and by the time of discharge was ambulating in the hallways using a walker and transferring with only standby assistance. We discussed ongoing management during hospital stay and his would like to proceed with hospice admission, for his end-stage coronary artery disease, congestive heart failure, and aortic stenosis. He will be admitted to hospice after discharge from the hospital. Glucose levels were monitored regularly throughout his hospital stay, he was continued on his usual dose of long-acting insulin and sliding scale Humalog was used as needed. Activity will be as tolerated and he will resume his usual diabetic heart healthy diet. - Patient Instructions Diet: Heart Healthy Diet, Diabetic Diet Activity: As Tolerated Other/Special Instructions: Hospice admission after discharge from hospital - Discharge Plan *PRESCRIPTION DRUG MONITORING PROGRAM REVIEWED*: Not Applicable *COPY OF PRESCRIPTION DRUG MONITORING REPORT IN PATIENT NIKI: Not Applicable Prescriptions/Med Rec: Divalproex Sodium 250 mg PO BIDMEALS #60 tab.cr Melatonin 9 mg PO BEDTIME #90 tablet Home Medications: Home Meds Aspirin [Adult Low Dose Aspirin EC] 81 mg PO DAILY 08/29/13 [History] Insulin Aspart [NovoLOG] 0 - 4 unit SQ ASDIRECTED 08/29/13 [History] Insulin Glarg,Human.Rec.Analog [Lantus] 15 unit SQ BEDTIME 08/29/13 [History] Isosorbide Mononitrate [Imdur] 30 mg PO DAILY 08/29/13 [History] Multivitamin [Multivitamins] 1 tab PO DAILY 08/29/13 [History] Tamsulosin [Flomax] 0.4 mg PO BEDTIME 08/29/13 [History] Tiotropium [Spiriva HandiHaler] 1 cap INH DAILY 08/29/13 [History] carvediloL [Coreg] 3.125 mg PO BID 08/29/13 [History] cycloSPORINE [Restasis] 1 each OP BID 08/29/13 [History] Nitroglycerin [Nitrostat] 0.4 mg SL ASDIRECTED 08/17/16 [History] Ranolazine [Ranexa] 500 mg PO BID 08/17/16 [History] Rosuvastatin Calcium 5 mg PO ASDIRECTED 08/17/16 [History] Clopidogrel [Plavix] 75 mg PO DAILY 08/26/16 [History] Glucosam/Chond-Msm1/C/Maxi/Bor [Pjucroz-Bhuao-BKN Complex Cplt] 1 each PO DAILY 08/26/16 [History] Furosemide 20 mg PO DAILY PRN 11/23/16 [History] Rivastigmine [Exelon] 1.5 mg PO BIDM 11/23/16 [History] Memantine HCl [Namenda] 10 mg PO BID 05/07/17 [History] Divalproex Sodium 250 mg PO BIDMEALS #60 tab.cr 03/31/19 [Rx] Melatonin 9 mg PO BEDTIME #90 tablet 03/31/19 [Rx] Referrals: Jh Carrion MD [Physician] - - Discharge Summary/Plan Comment DC Time >30 min.: No - Patient Data Vitals - Most Recent: Last Vital Signs Temp 97.5 F 03/31/19 07:00 Pulse 53 L 03/31/19 08:28 Resp 16 03/31/19 07:00 BP 158/68 H 03/31/19 08:29 Pulse Ox 96 03/31/19 07:00 Weight - Most Recent: 181 lb 12.8 oz I&O - Last 24 hours: Intake & Output 03/30/19 03/31/19 03/31/19 22:59 06:59 14:59 Intake Total 480 Output Total 700 500 Balance -700 -500 480 Med Orders - Current: Current Medications Acetaminophen (Tylenol) 650 mg PO Q4H PRN PRN Reason: Pain (Mild 1-3)/fever Last Admin: 03/29/19 17:31 Dose: 650 mg Albuterol (Proventil Neb Soln) 2.5 mg NEB Q4H PRN PRN Reason: Shortness Of Breath/wheezing Aspirin (Halfprin) 81 mg PO DAILY [facility] Last Admin: 03/31/19 08:29 Dose: 81 mg Carvedilol (Coreg) 3.125 mg PO BID [facility] Last Admin: 03/31/19 08:28 Dose: 3.125 mg Clopidogrel Bisulfate (Plavix) 75 mg PO DAILY [facility] Last Admin: 03/31/19 08:29 Dose: 75 mg Cyclosporine (Restasis) 0 each EYEBOTH BID [facility] Last Admin: 03/31/19 08:29 Dose: 1 drop Dextrose (Glutose 15) 15 gm PO ASDIRECTED PRN PRN Reason: Hypoglycemia Dextrose/Water (Dextrose 50% In Water) 50 ml IV ASDIRECTED PRN PRN Reason: Hypoglycemia Divalproex Sodium (Divalproex Sodium) 250 mg PO BIDMEALS [facility] Last Admin: 03/31/19 08:28 Dose: 250 mg Enoxaparin Sodium (Lovenox) 40 mg SUBCUT Q24H [facility] Last Admin: 03/30/19 16:23 Dose: 40 mg Furosemide (Lasix) 20 mg PO DAILY PRN PRN Reason: Edema Insulin Glargine (Lantus Solostar) 15 units SUBCUT BEDTIME [facility] Last Admin: 03/30/19 21:28 Dose: 15 units Insulin Human Lispro (Humalog) 0 unit SUBCUT QIDACANDBED [facility]; Protocol Last Admin: 03/31/19 08:26 Dose: Not Given Isosorbide Mononitrate (Imdur) 30 mg PO DAILY [facility] Last Admin: 03/31/19 08:29 Dose: 30 mg Melatonin (Melatonin) 9 mg PO BEDTIME [facility] Last Admin: 03/30/19 20:09 Dose: 9 mg Memantine (Namenda) 10 mg PO BID [facility] Last Admin: 03/31/19 08:29 Dose: 10 mg Ondansetron HCl (Zofran) 4 mg IV Q4H PRN PRN Reason: Nausea/Vomiting Oxycodone HCl (Oxycodone) 5 mg PO Q4H PRN PRN Reason: Pain (moderate 4-6) Polyethylene Glycol (Miralax) 17 gm PO DAILY PRN PRN Reason: Constipation Last Admin: 03/28/19 16:22 Dose: 17 gm Ranolazine (Ranexa) 500 mg PO BID [facility] Last Admin: 03/31/19 08:29 Dose: 500 mg Rivastigmine (Exelon) 1.5 mg PO BIDM [facility] Last Admin: 03/31/19 08:28 Dose: 1.5 mg Rosuvastatin Calcium (Crestor) 5 mg PO MoWeFr@1700 [facility] Last Admin: 03/28/19 16:21 Dose: 5 mg Tamsulosin HCl (Flomax) 0.4 mg PO BEDTIME [facility] Last Admin: 03/30/19 20:11 Dose: 0.4 mg Discontinued Medications Bisacodyl (Dulcolax) 10 mg RECTAL ONETIME ONE Stop: 03/28/19 20:01 Last Admin: 03/28/19 20:25 Dose: 10 mg Glycopyrrolate (Seebri Neohaler) 15.6 mcg IH BIDRT [facility] Last Admin: 03/28/19 07:06 Dose: 1 inhalation Hydromorphone HCl (Dilaudid) 0.5 mg IVPUSH ONETIME ONE Stop: 03/27/19 08:24 Last Admin: 03/27/19 08:31 Dose: 0.5 mg Insulin Human Lispro (Humalog) 0 unit SUBCUT QIDACANDBED [facility]; Protocol Last Admin: 03/27/19 21:51 Dose: Not Given Insulin Human Lispro (Humalog) 10 unit SUBCUT ONETIME ONE Stop: 03/27/19 21:54 Last Admin: 03/27/19 22:09 Dose: 10 units Lidocaine HCl (Xylocaine 2% Jelly) 10 ml MUCMEM ONETIME ONE Stop: 03/28/19 07:58 Last Admin: 03/28/19 08:23 Dose: 10 ml Sodium Biphosphate/Sodium Phosphate (Fleet Enema) 133 ml RECTAL ONETIME ONE Stop: 03/28/19 22:01 Last Admin: 03/28/19 22:16 Dose: 133 ml - Exam Quality Assessment: Reports: DVT Prophylaxis General: Reports: Alert, Cooperative, No Acute Distress. Denies: Oriented Lungs: Reports: Clear to Auscultation, Normal Respiratory Effort Cardiovascular: Reports: Regular Rate, Regular Rhythm, Murmurs GI/Abdominal Exam: Soft, Non-Tender, No Organomegaly, No Distention Extremities: Non-Tender, No Pedal Edema
[2019-03-31 11:01] VITALS: BP 102/57; PULSE 60
== END 2019-03-31 13:30 | disposition hospice, home (50) | DRG 556 ==
LOC: JP.ED 03:01 → JP.MS 10:55
PROVIDERS: ADMIT Hospitalist; ATTEND Hospitalist
DX: R41.0 Disorientation, unspecified (principal); T14.8XXA Other injury of unspecified body region, initial encounter; M79.622 Pain in left upper arm; R53.1 Weakness; M79.18 Myalgia, other site; M79.621 Pain in right upper arm; S00.11XA Contusion of right eyelid and periocular area, initial encounter; I10 Essential (primary) hypertension; Z66 Do not resuscitate; Z51.5 Encounter for palliative care; F22 Delusional disorders; N40.0 Benign prostatic hyperplasia without lower urinary tract symptoms; R45.1 Restlessness and agitation; I25.10 Atherosclerotic heart disease of native coronary artery without angina pectoris; H91.90 Unspecified hearing loss, unspecified ear; H54.7 Unspecified visual loss; E78.00 Pure hypercholesterolemia, unspecified; I25.2 Old myocardial infarction; J44.9 Chronic obstructive pulmonary disease, unspecified; E11.40 Type 2 diabetes mellitus with diabetic neuropathy, unspecified; N40.1 Benign prostatic hyperplasia with lower urinary tract symptoms; E11.65 Type 2 diabetes mellitus with hyperglycemia; R33.9 Retention of urine, unspecified; I11.0 Hypertensive heart disease with heart failure; I50.9 Heart failure, unspecified; G30.9 Alzheimer's disease, unspecified; F02.80 Dementia in other diseases classified elsewhere, unspecified severity, without behavioral disturbance, psychotic disturbance, mood disturbance, and anxiety; I35.0 Nonrheumatic aortic (valve) stenosis; W19.XXXA Unspecified fall, initial encounter; Z79.4 Long term (current) use of insulin; Z79.01 Long term (current) use of anticoagulants; Y92.002 Bathroom of unspecified non-institutional (private) residence as the place of occurrence of the external cause; Z90.89 Acquired absence of other organs; Z95.1 Presence of aortocoronary bypass graft; Z98.890 Other specified postprocedural states; Z79.82 Long term (current) use of aspirin; Z88.8 Allergy status to other drugs, medicaments and biological substances; Z79.899 Other long term (current) drug therapy
CPT/HCPCS: 36415; 70450; 71045; 72125; 96374; 99284; 99285; J1170; 51701; 51798; 73060-LT; 73090-LT; 73120-50; 80048; 80053; 82962; 83735; 85025; 94640; 96372; 97110-GP; 97162-GP; 97530-GP; 97535-GP; A9270-GY; J1650; J1815; J1815-GY

== ENCOUNTER 2019-04-01 10:27 | Emergency (ER) | payer MEDICARE ==
--- NOTE | 2019-04-01 11:20 | EDM.PDOC ---
ED HPI GENERAL MEDICAL PROBLEM - General Chief Complaint: General Stated Complaint: via north Time Seen by Provider: 04/01/19 10:50 Source of Information: Reports: EMS History Limitations: Reports: Altered Mental Status - History of Present Illness INITIAL COMMENTS - FREE TEXT/NARRATIVE: 78-year-old with advanced dementia, currently on hospice, who presents to concerns of falls. History is gathered by EMS as the patient is unable to provide any reliable history due to dementia. The patient was discharged yesterday from the hospital after admission for frequent falls. He had hospice services lined up, intake was to be performed today. He was visited by home health nurse earlier this morning who noted frequent falls, and referred him to the ED for eval due to concern of home safety issues. The patient is not oriented to person or place and denies any pain. - Related Data Allergies Allergy/AdvReac Type Severity Reaction Status Date / Time atorvastatin [From Lipitor] AdvReac Muscle Verified 04/01/19 10:44 Aches Home Meds: Home Meds Aspirin [Adult Low Dose Aspirin EC] 81 mg PO DAILY 08/29/13 [History] Insulin Aspart [NovoLOG] 0 - 4 unit SQ ASDIRECTED 08/29/13 [History] Insulin Glarg,Human.Rec.Analog [Lantus] 15 unit SQ BEDTIME 08/29/13 [History] Isosorbide Mononitrate [Imdur] 30 mg PO DAILY 08/29/13 [History] Multivitamin [Multivitamins] 1 tab PO DAILY 08/29/13 [History] Tamsulosin [Flomax] 0.4 mg PO BEDTIME 08/29/13 [History] Tiotropium [Spiriva HandiHaler] 1 cap INH DAILY 08/29/13 [History] carvediloL [Coreg] 3.125 mg PO BID 08/29/13 [History] cycloSPORINE [Restasis] 1 each OP BID 08/29/13 [History] Nitroglycerin [Nitrostat] 0.4 mg SL ASDIRECTED 08/17/16 [History] Ranolazine [Ranexa] 500 mg PO BID 08/17/16 [History] Rosuvastatin Calcium 5 mg PO ASDIRECTED 08/17/16 [History] Clopidogrel [Plavix] 75 mg PO DAILY 08/26/16 [History] Glucosam/Chond-Msm1/C/Maxi/Bor [Fdgpmrk-Lduvw-JNG Complex Cplt] 1 each PO DAILY 08/26/16 [History] Furosemide 20 mg PO DAILY PRN 11/23/16 [History] Rivastigmine [Exelon] 1.5 mg PO BIDM 11/23/16 [History] Memantine HCl [Namenda] 10 mg PO BID 05/07/17 [History] Divalproex Sodium 250 mg PO BIDMEALS #60 tab.cr 03/31/19 [Rx] Melatonin 9 mg PO BEDTIME #90 tablet 03/31/19 [Rx] Past Medical History HEENT History: Reports: Hard of Hearing, Impaired Vision, Other (See Below) Other HEENT History: Wears hearing aid Cardiovascular History: Reports: Bypass, CAD, High Cholesterol, Hypertension, [place] Respiratory History: Reports: COPD Genitourinary History: Reports: BPH, Prostate Disorder Other Genitourinary History: Takes Flomax Musculoskeletal History: Reports: Other (See Below) Other Musculoskeletal History: Fx L humerous Neurological History: Reports: Neuropathy, Diabetic, Vertigo Psychiatric History: Reports: Alzheimers Disease, Dementia Endocrine/Metabolic History: Reports: Diabetes, Type II, IDDM Hematologic History: Reports: Anticoagulation Therapy Immunologic History: Reports: None Oncologic (Cancer) History: Reports: None Dermatologic History: Reports: Other (See Below) Other Dermatologic History: facial lesion reoccurring - Infectious Disease History Infectious Disease History: Reports: Chicken Pox, Measles, Mumps - Past Surgical History Head Surgeries/Procedures: Reports: None HEENT Surgical History: Reports: Adenoidectomy, Laser Surgery, Tonsillectomy Cardiovascular Surgical History: Reports: Carotid Endarterectomy, Coronary Artery Bypass Respiratory Surgical History: Reports: Thoracotomy GI Surgical History: Reports: Colonoscopy Musculoskeletal Surgical History: Reports: Shoulder Surgery Oncologic Surgical History: Reports: None Dermatological Surgical History: Reports: None Social & Family History - Family History Family Medical History: Noncontributory - Caffeine Use Caffeine Use: Reports: Coffee, Soda Caffeine Use Comment: 2-3 cups daily - Recreational Drug Use Recreational Drug Use: No - Living Situation & Occupation Living situation: Reports: , with Family Occupation: Retired (lives with Marilee of 64 years, [place] in [place], Summer at [employer] (formerly [employer]), have 2 adult children one lives in [facility] , one live in [place].) ED ROS GENERAL - Review of Systems Review Of Systems: Unable To Obtain Reason Not Obtained: Dementia ED EXAM, GENERAL - Physical Exam Exam: See Below Exam Limited By: Altered Mental Status General Appearance: No Apparent Distress, Other (sleeping comfortably in bed) Ears: Normal External Exam Nose: Normal Inspection Throat/Mouth: Normal Inspection Head: Normocephalic, Other (scattered ecchymosis on the face) Neck: Normal Inspection. No: Tender Lateral, Tender Midline Respiratory/Chest: Lungs Clear Cardiovascular: Regular Rate, Rhythm GI/Abdominal: Soft, Non-Tender Rectal (Males) Exam: Normal Exam Back Exam: Normal Inspection Extremities: Normal Range of Motion Neurological: Alert, Confused Psychiatric: Normal Affect Skin Exam: Warm, Dry Course - Vital Signs Last Recorded V/S: Last Vital Signs Temp 38.1 C 04/01/19 10:33 Pulse 70 04/01/19 11:29 Resp 15 04/01/19 10:33 BP 138/59 L 04/01/19 11:29 Pulse Ox 93 L 04/01/19 10:33 - Re-Assessments/Exams Free Text/Narrative Re-Assessment/Exam: 88 yo with hx of dementia, multiple medical problems presents with concerns for fall He was just discharged from the hospital yesterday, was to be enrolled in home hospice this morning. He is comfortable appearing on exam here. His did arrive and we discussed using this ER visit is an opportunity to figure out a different living disposition for him. We are not going to any further medical testing looking for traumatic injury. His is comfortable with this plan. Discharge planning on visiting with the patient and determine appropriate disposition I did discuss this case with the hospitalist, Dr Henry, who discharged the patient yesterday and runs the hospice program 04/01/19 11:26 Free Text/Narrative Re-Assessment/Exam: Placed in NH for further comfort focused hospice cares 04/01/19 12:36 Departure - Departure Time of Disposition: 12:35 Disposition: DC/Tfer to Hospice-Med Fac 51 Clinical Impression: Weakness Fall Qualifiers: Encounter type: initial encounter Qualified Code(s): W19.XXXA - Unspecified fall, initial encounter - Discharge Information Referrals: PCP,None [Primary Care Provider] - Forms: ED Department Discharge Sepsis Event Note - Evaluation Sepsis Screening Result: No Definite Risk - Focused Exam Vital Signs: Vital Signs Temp Pulse Resp BP Pulse Ox 04/01/19 11:29 70 138/59 L 04/01/19 11:00 72 145/69 H 04/01/19 10:33 38.1 C 77 15 168/72 H 93 L 04/01/19 10:31 38.1 C 77 15 168/72 H 93 L Date Exam was Performed: 04/01/19 Time Exam was Performed: 12:36
== END 2019-04-01 13:31 | disposition hospice, inpatient (51) ==
LOC: JP.ED 10:27
CPT/HCPCS: 99282; 99284